=== PATIENT | female | born 1955 | race African-American/Black ===

== ENCOUNTER → 2016-08-27 | Outpatient (CLI) | payer MEDICARE, BC ==
--- NOTE | 2016-08-27 21:20 | MR ---
EXAMINATION TYPE: MR knee RT wo con DATE OF EXAM: 08/27/2016 12:33 PM COMPARISON: Outside radiographs 07/09/2016 HISTORY: 61-year-old female with right knee pain TECHNIQUE: Multiplanar, multisequence imaging of the right knee is performed without IV contrast. FINDINGS: The ACL remains intact but is diffusely thickened and of intermediate signal intensity. The PCL, MCL, and LCL complex appear intact. There is an oblique tear at the junction of the posterior horn and body of the medial meniscus. There is mild diffuse thinning of medial compartment articular cartilage volume. There is diffuse tear of the anterior horn of the lateral meniscus with tear extending to the junctio n with the meniscal body. There is an additional peripheral tear of the posterior horn extending to t he junction with the body and communicating with the attachment site of the meniscofemoral ligament. There is moderate diffuse thinning of lateral compartment articular cartilage with meniscal extrusion , marginal spurring, and more focal moderate to severe irregular areas of cartilage loss especially a long the mid central aspect and posterior weightbearing aspect of the lateral compartment with underl celestino subchondral marrow signal changes. Moderate irregular cartilage loss throughout the patellofemoral compartment with marginal spurring. M ore severe cartilage loss along the mid inferior patella and inferior lateral patellar facet. Extensor mechanism is intact. There is a large knee joint effusion and diffuse soft tissue swelling. There is a small 3.4 cm leaking Gay's cyst also noted. Normal popliteal artery anatomy with mild diffuse muscular atrophy. No suspicious bone marrow replace ment. IMPRESSION: 1. Mucoid degeneration of the ACL. 2. Oblique tear at the junction of the posterior horn and body of the medial meniscus. 3. Moderate overall lateral compartment osteoarthrosis with a peripheral tear of the posterior horn o f the lateral meniscus extending from the attachment site of the meniscofemoral ligament to the junct ion with the body. The lateral meniscal body is extruded secondary to diffuse tear of the anterior ho rn also involving the anterior root. 4. Moderate overall patellofemoral compartment osteoarthrosis. 5. Large knee joint effusion, diffuse soft tissue swelling, and a small leaking Gay's cyst.
== END | disposition home or self-care (01) ==
LOC: RADMRIMAIN 10:56
PROVIDERS: ATTEND Orthopaedic Surgery
DX: S83.241A Other tear of medial meniscus, current injury, right knee, initial encounter (principal); M17.11 Unilateral primary osteoarthritis, right knee; S83.511A Sprain of anterior cruciate ligament of right knee, initial encounter

== ENCOUNTER 2016-09-28 08:10 | Day surgery (SDC) | payer MEDICARE, BC ==
[2016-09-26 10:53] VITALS: BMI 32.5
--- NOTE | 2016-09-27 11:11 | HP ---
DATE OF ADMISSION: CHIEF COMPLAINT: Right knee pain. HISTORY OF PRESENT ILLNESS: The patient is a 61-year-old female on disability who presents with progressive right knee pain and mechanical symptoms despite extensive conservative treatment. She is having pain that limits her normal function and activities. She notes the knee gives way. PAST MEDICAL HISTORY: Significant for lupus, hypertension, hyperlipidemia, previous TIA. CURRENT MEDICATIONS: 1. Procardia. 2. Plaquenil. 3. Aspirin. 4. Plavix. 5. Atorvastatin. 6. Hydrochlorothiazide. 7. Zantac. 8. Metoprolol. 9. Tramadol. 10. [place]. 11. Fentanyl patch. She has allergies to PENICILLIN. Family history is significant for cancer. SOCIAL HISTORY: Negative for current tobacco or alcohol use. A 16-point review of systems otherwise reviewed and is noncontributory. On examination, the patient is approximately 5 feet 4, 197 pounds of endomorphic habitus. HEENT exam is nonfocal. Neck is supple. She has painless passive motion of the right hip. Straight leg raise is negative. Active motion of the right knee -6 to 100 degrees of flexion. She has a large effusion. She is tender about the medial and lateral joint line. Collaterals are stable, Jessie is negative, Jeronimo's elicits medial and lateral pain. Her distal neurovascular exam appears intact in the right lower extremity. Previous MRI report 08/27/2016 of the right knee shows an anterior lateral meniscal tear in addition to a posterior medial meniscal tear. IMPRESSION: 1. Internal derangement of right knee with symptomatic medial and lateral meniscal tears. 2. Right knee lateral compartment osteoarthrosis. 3. History of lupus. RECOMMENDATIONS: I talked to the patient at length regarding her treatment options. At this point, she is quite symptomatic despite conservative treatment. After thorough discussion, she opts to proceed with surgery. We will plan to proceed with arthroscopic evaluation with probable partial medial and lateral meniscectomy. We will likely allow her to resume use of her Plavix after her surgery. We will likely perform that as an outpatient procedure.
[~2016-09-28 08:10] MED LIST: DEXAMETHASONE SOD PHOSPHATE 10 MG/ML 1 ML VIAL IV ONE; LACTATED RINGERS 1,000 ML IV SCH; MIDAZOLAM 2 MG/2 ML VIAL IV PRN; ONDANSETRON 4 MG/2 ML VIAL IVP ONE; SCOPOLAMINE 1.5MG/72HR PATCH TRANSDERM ONE; ceFAZolin 2 GM in SODIUM CHLORIDE 0.9% 100 ML IVPB ONE
[2016-09-28] MEDS ORDERED: LIDOCAINE 1% 20 ML VIAL (10MG/ML) FOR IV START INTRADERMA ONE (08:40)
[2016-09-28] MEDS ORDERED: PROPOFOL 10 MG/ML 20 ML VIAL IV ONE (09:08)
[2016-09-28] MEDS ORDERED: LIDOCAINE 1% INJ 10MG/ML (20 ML MDV) ONE (09:08)
[2016-09-28] MEDS ORDERED: MIDAZOLAM 2 MG/2 ML VIAL ONE (09:08)
[2016-09-28] MEDS ORDERED: fentaNYL (PF) 50 MCG/ML 2 ML AMP ONE (09:08)
[2016-09-28] MEDS ORDERED: SODIUM CHLORIDE 0.9% 100 ML with CLINDAMYCIN 600 MG IV ONE ×2 (09:16)
--- NOTE | 2016-09-28 10:00 | P.OP ---
Date of Procedure: 09/28/16 Preoperative Diagnosis: Right knee internal derangement Postoperative Diagnosis: Right knee posterior medial meniscal tear/posterior lateral meniscal tear/grade 3 chondral injury distal lateral femoral condyle/reactive synovitis of the lateral and patellofemoral compartments Procedure(s) Performed: Right knee arthroscopic partial medial meniscectomy/partial lateral meniscectomy /lateral femoral chondrectomy/partial synovectomy of the lateral and patellofemoral compartments Implants: Anesthesia: GETA Surgeon: Amish Desai Estimated Blood Loss (ml): 10 Pathology: none sent Condition: stable Disposition: PACU Indications for Procedure: The patient's a 61-year-old female who presents with progressive right knee pain and mechanical symptoms despite conservative treatment. A discussion of the risks and benefits of operative intervention versus continued conservative measures was made with patient. She opted to proceed with surgery. Operative risks to include infection, neurovascular injury, development of blood clots, possible incomplete resolution of symptoms, possible worsening symptoms and need for subsequent procedures was discussed. Informed consent was obtained. Operative Findings: As below Description of Procedure: The patient was brought to the operating room, and after induction of general anesthesia examined the right knee. Collaterals were stable, Jessie was negative, and posterior drawer was negative. The right lower extremity was prepped and draped in normal fashion. A superior lateral portal was made through a 3 mm skin incision superior and lateral to the patella. This was used for outflow. A large effusion was encountered. A lateral portal was made through a 5 mm vertical skin incision lateral to the patella tendon above the joint line. Diagnostic arthroscopy was performed. A medial portal was made through a similar incision medial to the patella tendon above the joint line. On inspection of the medial compartment a longitudinal tear involving the posterior aspect of the medial meniscus in the white-junction was noted. This debrided back to stable base with straight baskets. The edges were contoured. The remaining medial meniscus was stable and intact. On inspection of the notch , the anterior cruciate ligament appeared to be intact. On inspection of the lateral compartment, and anterior and posterior lateral meniscal tear was noted. These areas were debrided back to stable base with a motorized shaver and with straight baskets. Reactive synovitis involving anterolateral compartment was debrided with motorized shaver. A grade 3 chondral injury was noted involving the distal medial portion of the lateral femoral condyle. There was a loose chondral flap debrided back to stable base with a motorized shaver. On inspection patellofemoral articulation, there was diffuse degenerative changes however no loose chondral fragments. Reactive synovitis was debrided with a motorized shaver. The gutters were clear debris. The knee was then thoroughly irrigated. The portals were closed with Steri-Strips. A sterile dressing was applied in addition to a compression stocking. The patient was awoken from general anesthesia and transferred to recovery room in good condition. Blood loss was estimated at 10 mL. No complications were incurred.
[2016-09-28 10:02] VITALS: TEMP 96.8
[2016-09-28 10:16] VITALS: RESP 16
[2016-09-28] MEDS: HYDROmorphone 1 MG/ML 1 ML SYRINGE IVP PRN ×3 (10:33→10:51)
[2016-09-28] MEDS ORDERED: HYDROmorphone 1 MG/ML 1 ML SYRINGE IVP ONE (10:38)
[2016-09-28] MEDS ORDERED: HYDROcodone/APAP 10-325MG 1 EACH TAB PO ONE (11:27)
[2016-09-28 11:57] VITALS: BP 122/78; PULSE 76
== END 2016-09-28 12:21 | disposition home or self-care (01) ==
LOC: OR 08:10
PROVIDERS: ATTEND Orthopaedic Surgery
DX: S83.241A Other tear of medial meniscus, current injury, right knee, initial encounter (principal); S83.281A Other tear of lateral meniscus, current injury, right knee, initial encounter; S83.31XA Tear of articular cartilage of right knee, current, initial encounter; X58.XXXA Exposure to other specified factors, initial encounter; M65.861 Other synovitis and tenosynovitis, right lower leg; I10 Essential (primary) hypertension; E78.5 Hyperlipidemia, unspecified; I73.00 Raynaud's syndrome without gangrene; Z87.891 Personal history of nicotine dependence; M32.9 Systemic lupus erythematosus, unspecified; Z86.73 Personal history of transient ischemic attack (TIA), and cerebral infarction without residual deficits; Z79.02 Long term (current) use of antithrombotics/antiplatelets; Z79.82 Long term (current) use of aspirin; Z79.891 Long term (current) use of opiate analgesic; Z79.899 Other long term (current) drug therapy; Z88.0 Allergy status to penicillin
CPT/HCPCS: 29880; J2250; J1100; J2405; J2001; J3010; J1170; J2704

== ENCOUNTER 2017-04-26 12:04 | Day surgery (SDC) | payer MEDICARE, BC ==
[~2017-04-26 12:04] MED LIST changes: -DEXAMETHASONE SOD PHOSPHATE 10 MG/ML 1 ML VIAL IV ONE; +LIDOCAINE 1% 20 ML VIAL (10MG/ML) FOR IV START INTRADERMA PRN; -MIDAZOLAM 2 MG/2 ML VIAL IV PRN; -ONDANSETRON 4 MG/2 ML VIAL IVP ONE; -SCOPOLAMINE 1.5MG/72HR PATCH TRANSDERM ONE; -ceFAZolin 2 GM in SODIUM CHLORIDE 0.9% 100 ML IVPB ONE
[2017-04-26 12:32] VITALS: TEMP 98
[2017-04-26] MEDS ORDERED: PROPOFOL 10 MG/ML 20 ML VIAL IV ONE (12:59)
--- NOTE | 2017-04-26 13:23 | P.PCN ---
Date of Procedure: 04/26/17 Procedure(s) Performed: BRIEF HISTORY: Patient is a 61-year-old pleasant female, scheduled for an elective colonoscopy as a part of screening for colon rectal neoplasia. PROCEDURE PERFORMED: Colonoscopy. PREOPERATIVE DIAGNOSIS: Screening for colon cancer. IV sedation per Anesthesia. PROCEDURE: After informed consent was obtained, the patient, was brought into the endoscopy unit. IV sedation was administered by Anesthesia under continuous monitoring. Digital rectal examination was normal. Initially the Olympus CF- 160 flexible video colonoscope was then inserted in the rectum, gradually advanced into the cecum without any difficulty. Careful examination was performed as the scope was gradually being withdrawn. Ileocecal valve and the appendiceal orifice were visualized and appeared normal. Prep was fair. Mucosa of the cecum, ascending colon, transverse colon, descending colon, sigmoid colon , and rectum appeared normal. Scattered sigmoid diverticulosis seen. Retroflexion was performed in the rectum and no lesions were seen. The patient tolerated the procedure well. IMPRESSION: Normal-appearing colon from rectum to cecum with no evidence of colorectal neoplasia. Scattered sigmoid diverticulosis. RECOMMENDATIONS: Findings of this examination were discussed with the patient as well as a family. She was advised to have a repeat screening colonoscopy in 10 years.
[2017-04-26 14:02] VITALS: BP 100/66; RESP 18
[2017-04-26 14:22] VITALS: PULSE 60
== END 2017-04-26 14:26 | disposition home or self-care (01) ==
LOC: ORWHC2ENDO 12:04
PROVIDERS: ATTEND Internal Medicine Gastroenterology
DX: Z12.11 Encounter for screening for malignant neoplasm of colon (principal); K57.30 Diverticulosis of large intestine without perforation or abscess without bleeding
CPT/HCPCS: J2704; G0121; 45378

== ENCOUNTER → 2020-03-16 | Outpatient (CLI) | payer MEDICARE, BC | END | disposition home or self-care (01) | LOC: LABPAT 12:38 | PROVIDERS: ATTEND Orthopaedic Surgery | DX: Z01.812 Encounter for preprocedural laboratory examination (principal) | CPT/HCPCS: 87070 ==

== ENCOUNTER → 2020-03-16 | Outpatient (CLI) | payer MEDICARE, BC ==
[~2020-03-16] MED LIST changes: -LACTATED RINGERS 1,000 ML IV SCH; -LIDOCAINE 1% 20 ML VIAL (10MG/ML) FOR IV START INTRADERMA PRN; +REGADENOSON 0.4 MG/5 ML SYRINGE IV ONE
--- NOTE | 2020-03-16 12:18 | ECHOF ---
Referral Reason:Z01.818 Surgical clearance R94.31 Abn ECG MEASUREMENTS -------- HEIGHT: 162.6 cm WEIGHT: 77.1 kg BP: RVIDd: 3.3 cm (< 3.3) IVSd: 1.5 cm (0.6 - 1.1) LVIDd: 3.6 cm (3.9 - 5.3) LVPWd: 1.4 cm (0.6 - 1.1) IVSs: 1.9 cm LVIDs: 2.6 cm LVPWs: 1.6 cm LA Diam: 3.6 cm (2.7 - 3.8) LAESV Index (A-L): 23.33 ml/m Ao Diam: 2.9 cm (2.0 - 3.7) AV Cusp: 1.0 cm (1.5 - 2.6) MV EXCURSION: 13.784 mm (> 18.000) MV EF SLOPE: 42 mm/s (70 - 150) EPSS: 0.3 cm MV E Richard: 0.80 m/s MV DecT: 244 ms MV A Richard: 1.04 m/s MV E/A Ratio: 0.78 AV maxP.80 mmHg AV meanP.74 mmHg RAP: 5.00 mmHg RVSP: 25.42 mmHg FINDINGS -------- Sinus rhythm. This was a technically good study. The left ventricular size is normal. There is moderate concentric left ventricular hypertrophy. O verall left ventricular systolic function is normal with, an EF between 60 - 65 %. The right ventricle is mildly enlarged. Normal LA size by volume 22+/-6 ml/m2. The right atrium is normal in size. Interatrial and interventricular septum intact. There is mild to moderate aortic valve sclerosis. There is mild aortic stenosis present. Peak/breann n gradient across the Aortic Valve is 21.80mmHg / 11.74mmHg. There is trace to mild mitral regurgitation. Mild tricuspid regurgitation present. Right ventricular systolic pressure is normal at < 35 mmHg. Trace/mild (physiologic) pulmonic regurgitation. The aortic root size is normal. Normal inferior vena cava with normal inspiratory collapse consistent with estimated right atrial pre ssure of 5 mmHg. There is no pericardial effusion. CONCLUSIONS -------- 1. The left ventricular size is normal. 2. There is moderate concentric left ventricular hypertrophy. 3. Overall left ventricular systolic function is normal with, an EF between 60 - 65 %. 4. The right ventricle is mildly enlarged. 5. There is mild to moderate aortic valve sclerosis. 6. There is mild aortic stenosis present. 7. Peak/mean gradient across the Aortic Valve is 21.80mmHg / 11.74mmHg. 8. There is trace to mild mitral regurgitation. 9. Mild tricuspid regurgitation present. 10. Right ventricular systolic pressure is normal at < 35 mmHg. 11. Trace/mild (physiologic) pulmonic regurgitation. 12. There is no pericardial effusion. HOSPITAL WARD CLERK: MANAS Rothman
--- NOTE | 2020-03-16 14:01 | NM ---
EXAMINATION TYPE: NM stress lexiscan cardiolite DATE OF EXAM: 03/16/2020 COMPARISON: NONE HISTORY: Abnormal ECG, surgical clearance TECHNIQUE: After the intravenous administration of 10.48 mCi Tc 99m Sestamibi - Cardiolite resting S PECT images acquired 45 minutes post injection. The patient received 0.4mg Lexiscan, 25.7 mCi Tc 99m Sestamibi - Stress images obtained [address] injection FINDINGS: Review of stress and rest SPECT images demonstrates no distinct perfusion abnormality. Gated analysi s shows normal wall motion with an estimated left ventricular ejection fraction of 63%. IMPRESSION: No scintigraphic evidence for reversible ischemia.
--- NOTE | 2020-03-16 14:17 | EST ---
EXERCISE STRESS AGE: 64 SEX: F HT: 5'4" WT: 170 PROTOCOL: Lexiscan Cardiolite Stress Test HEART RATE REST: 68 BLOOD PRESSURE REST: 139/63 MAXIMUM HEART RATE ACHIEVED: 92 MAXIMUM BLOOD PRESSURE: 139/63 85% MPHR: 134 100% MPHR: 158 INDICATIONS: Abnormal EKG, surgical clearance. CLINICAL INFORMATION: Baseline EKG revealed normal sinus rhythm with inferolateral nonspecific ST abnormality. With Lexiscan administration, heart rate changed from 68-85 beats per minute, blood pressure changed from 139/63 to 124/57, and came back to baseline. EKG remained inconclusive. Patient did not have any significant symptoms. By EKG criteria, this is an inconclusive Lexiscan stress test because of resting EKG changes. The nuclear scan results which are more pertinent will be reported by the radiologist. MMODL / IJN: [id number] /
== END | disposition home or self-care (01) ==
LOC: RADNMMAIN 08:57
PROVIDERS: ATTEND Family Medicine
DX: I08.1 Rheumatic disorders of both mitral and tricuspid valves (principal); I09.89 Other specified rheumatic heart diseases; I10 Essential (primary) hypertension; Z01.818 Encounter for other preprocedural examination; R94.31 Abnormal electrocardiogram [ECG] [EKG]; R01.1 Cardiac murmur, unspecified
CPT/HCPCS: 93017; 93306; 78452; A9500; J2785

== ENCOUNTER 2020-03-22 13:11 | Day surgery (SDC) | payer MEDICARE, BC ==
[2020-03-18 15:34] VITALS: BMI 29.2
--- NOTE | 2020-03-21 10:45 | HP ---
HISTORY AND PHYSICAL CHIEF COMPLAINT: Right knee pain. HISTORY OF PRESENT ILLNESS: Patient is a 64-year-old retired female who presents with progressive right knee pain for the past several years. She has tried medications in addition to injections with only partial temporary relief. She notes pain that limits her normal function and activities. She is having night symptoms. She had a previous arthroscopy in 2017. PAST MEDICAL HISTORY: Significant for arthritis and hypertension. PAST SURGICAL HISTORY: Significant for bilateral knee arthroscopy. CURRENT MEDICATIONS: Aspirin, fentanyl patch, hydrochlorothiazide, spironolactone, Tim[place], atorvastatin, [place], ibuprofen, Procardia, and Tramadol. ALLERGIES: PENICILLIN. FAMILY HISTORY: Significant for cancer. SOCIAL HISTORY: Negative for current tobacco or alcohol use. PHYSICAL EXAMINATION: On examination, the patient is approximately 5 foot 4, 170 pounds, of mesomorphic habitus. HEENT: Exam is nonfocal. NECK: Supple. She has painless passive motion of the right hip. Straight leg raise is negative. Active motion right knee -12 to 85 degrees of flexion. She is tender about the lateral joint line. She has mild effusion. Collaterals are stable, Jessie is negative, Jeronimo's is equivocal. She has genu valgum alignment. Her distal neurovascular appears intact in the right lower extremity. Weightbearing notch, lateral and Merchant views of the right knee obtained in the office show severe lateral and patellofemoral compartment narrowing. There is bone-on- bone changes and subchondral sclerosis. IMPRESSION: Right knee severe lateral and patellofemoral compartment osteoarthrosis. RECOMMENDATIONS: I talked to the patient at length regarding her condition along with treatment options. She has exhausted conservative measures with worsening of her symptoms. After a thorough discussion, she opts to proceed with surgery. We will plan to proceed with a right total knee arthroplasty. We will institute DVT prophylaxis postoperatively. MMODL / IJN: [id number] /
[~2020-03-22 13:11] MED LIST changes: +ACETAMINOPHEN TAB 500 MG TAB PO ONE; +DEXAMETHASONE SOD PHOSPHATE 4 MG/ML 1 ML VIAL IV ONE; +HYDROmorphone 0.5 MG/0.5 ML SYRINGE IVP PRN; +LIDOCAINE 1% (10MG/ML) FOR IV START INTRADERMA PRN; +ONDANSETRON 4 MG/2 ML VIAL IVP ONE; -REGADENOSON 0.4 MG/5 ML SYRINGE IV ONE; +TRANEXAMIC ACID 1,000 MG in SODIUM CHLORIDE 0.9% 100 ML IVPB ONE
[2020-03-22] MEDS: LACTATED RINGERS 1,000 ML IV SCH (13:49)
[2020-03-22] MEDS: MELOXICAM 7.5 MG TAB PO ONE ×2 (13:50→13:53)
[2020-03-22] MEDS ORDERED: fentaNYL (PF) 50 MCG/ML 2 ML AMP IV ONE (13:52)
[2020-03-22] MEDS ORDERED: MIDAZOLAM 2 MG/2 ML VIAL IV ONE (13:52)
[2020-03-22] MEDS ORDERED: ROPIVACAINE 0.2%-NS ON-Q PUMP 1,090 MG, EMPTY PAIN BALL 1 EACH MISCELLANE PRN (14:11)
--- NOTE | 2020-03-22 14:11 | P.ANPRN ---
Procedure Note - Anesthesia - Nerve Block Performed Right Adductor Canal Infusion Time Out Performed: Yes ([id number]) Date of Procedure: 03/22/20 Procedure Start Time: 13:52 Procedure Stop Time: 14:02 Location of Patient: PreOp Indication: Acute Post-Operative Pain, Analgesia, Requested by Surgeon Specifically requested for management of pain by : Amish Desai Sedation Type: Sedate with meaningful contact maintained Preparation: Sterile Prep, Sterile Dressing Position: Supine Catheter: Indwelling Needle Types: Kandy Needle Gauge: 18 Ultrasound used to visualize needle placement: Yes Ultrasound used to observe medication spread: Yes Injectate: 0.5% Ropivacaine (see comment for volume) (20 mL) Blood Aspirated: No Pain Paresthesia on Injection Noted: No Resistance on Injection: Normal Image Stored and Saved: Yes Events: Uneventful and Well Tolerated
[2020-03-22] MEDS ORDERED: PROPOFOL 10 MG/ML 20 ML VIAL IV ONE (14:40)
[2020-03-22] MEDS ORDERED: fentaNYL (PF) 50 MCG/ML 2 ML AMP ONE (14:40)
[2020-03-22] MEDS ORDERED: MIDAZOLAM 2 MG/2 ML VIAL ONE (14:40)
[2020-03-22] MEDS ORDERED: GLYCOPYRROLATE 0.2 MG/ML 2 ML VIAL ONE (14:40)
[2020-03-22] MEDS ORDERED: TRANEXAMIC ACID 1,000 MG/10 ML VIAL ONE (14:40)
[2020-03-22] MEDS ORDERED: SODIUM CHLORIDE 0.9% 100 ML BAG ONE (14:40)
[2020-03-22] MEDS: ROPIVACAINE 246.25 MG, EPINEPHrine 0.5 MG, KETOROLAC 30 MG, cloNIDine HCL/PF 80 MCG, WA... MISCELLANE ONE ×10 (15:15→16:13)
[2020-03-22] MEDS ORDERED: ceFAZolin 3,000 MG in SODIUM CHLORIDE 0.9% IRRIGATIO 3,000 ML IRRIGATION ONE (15:16)
[2020-03-22] MEDS ORDERED: HYDROcodone/APAP 10-325MG 1 EACH TAB PO PRN (16:25)
[2020-03-22] MEDS ORDERED: ONDANSETRON 4 MG/2 ML VIAL IVP PRN (16:25)
[2020-03-22] MEDS ORDERED: traMADol 50 MG TAB PO PRN (16:25)
[2020-03-22] MEDS ORDERED: HYDROmorphone 0.5 MG/0.5 ML SYRINGE IVP PRN (16:25)
[2020-03-22] MEDS ORDERED: MAGNESIUM HYDROXIDE 2,400 MG/10 ML CUP PO PRN (16:25)
[2020-03-22] MEDS ORDERED: NALOXONE 0.4 MG/ML 1 ML VIAL IV PRN (16:25)
[2020-03-22] MEDS ORDERED: ACETAMINOPHEN TAB 325 MG TAB PO PRN (16:25)
--- NOTE | 2020-03-22 17:00 | P.OP ---
Date of Procedure: 03/22/20 Preoperative Diagnosis: right knee severe tricompartmental osteoarthrosis Postoperative Diagnosis: Same Procedure(s) Performed: Right total knee arthroplastycruciate retainingcemented Implants: Depuy Attune size 6 narrow cemented femoral component, size 5 cemented tibial component, 9 mm articular surface, 32 mm cemented patellar component. This is a cruciate retaining implant. Anesthesia: regional, local, spinal Surgeon: Amish Desai Principal Secretary #1: Dave Patton Estimated Blood Loss (ml): 50 Pathology: other (Bone fragments) Condition: stable Disposition: PACU Indications for Procedure: The patient's a 64-year-old female who presents with progressive right knee pain secondary to osteoporosis despite conservative measures. A discussion of the risks and benefits of operative intervention versus continued conservative measures was made with patient. She opted to proceed with surgery. Operative risks to include infection, neurovascular injury, development of blood clots, possible fracture, possible component loosening, possible component failure need for subsequent procedures was discussed. Informed consent was obtained. Operative Findings: As below Description of Procedure: The patient was brought to the operating room, and after induction of spinal anesthesia the right lower extremity was prepped and draped in a normal fashion. The tourniquet was inflated to 270 mmHg. A longitudinal incision extending 3 finger breaths above the superior pole of the patella extending to the medial aspect the tibial tubercle was then made. The skin and subcutaneous tissues were divided sharply. Electrocautery was used for hemostasis. A medial parapatellar arthrotomy was then performed. The medial soft tissues to include the superficial and deep portions of the medial collateral ligament as well as the medial hamstring tendons were elevated subperiosteally. The proximal medial tibia osteophytes were carefully removed. The patella was everted. The knee was flexed. A portion of the retropatellar fat pad was excised sharply. The anterior cruciate ligament was sacrificed. A starting hole was made in the distal femur 1 cm anterior to the posterior cruciate origin. An intramedullary femoral guide was gently inserted planning on 5 valgus distal cut with 9 mm distal resection. The cutting block was pinned in place. The distal cut was then made. The posterior referencing sizing guide was utilized. 3 of external rotation was built into the system and verified off the trans- epicondylar axis and the posterior condyles. I felt size 6 was most appropriate. The cutting block was pinned in place. The anterior, posterior, and chamfer cuts were then made. The bone fragments were removed. A sulcus cut was then made with the appropriate guide. The trial size 6 femoral component was then placed and was fully seated. There was good anterior to posterior and medial to lateral fit. The distal peg holes were then drilled. The trial component was then removed. Attention was then paid towards preparing the proximal tibia. An extra medullary guide was utilized in line with the tibial shaft and second metatarsal distally. A 7 posterior slope was planned. I planned on 2 mm resection from the medial compartment. The cutting block was pinned in place. The proximal tibial cut was then made. The bone was removed in one fragment. The remnants of the medial and lateral menisci were excised the capsule junction with electrocautery. The tibia sized most appropriately at size 5. The posterior osteophytes off the distal femur were carefully removed with a curved osteotome. The trial tibial and femoral components were placed along with a 9 millimeters articular surface. I was able to obtain full flexion and extension with good stability with varus and valgus stress. After several flexion and extension cycles, the tibial rotation was marked with electrocautery in line with the medial one third of the tibial tubercle. Attention was then paid towards preparing the patella. A patella reamer was utilized taking this down to 14 mm of bone stock. A good flush cut was made. The patella sized most appropriately at 32 millimeters. The peg holes were then drilled. The trial component was placed. The knee was taken through a range of motion. I had good patellofemoral tracking with no hands technique. The trial components were then removed. The tibia was prepared in the appropriate rotation with appropriate drill and keel punch. The flexion and extension gaps were checked and felt to be symmetric. The posterior soft tissues were injected with ropivacaine. The bony surfaces were prepared with pulsatile lavage and dried. The deep tibial component was then cemented in place and was fully seated. Excess cement was removed. The femoral component was cemented in place and was fully seated. Again excess cement was removed. The trial 9 millimeters surface was then inserted in the knee was put in full extension. The patella component was cemented in place. After the cement had sufficiently hardened, the knee was again taken through a range of motion. Again there was good stability in flexion and extension with varus and valgus stress. The trial articular surface was then removed. The final articular surface was placed and was impacted. Care was taken to avoid any soft tissue interposition. Pulsatile lavage was again utilized. The tourniquet was deflated with approximately 60 minutes total tourniquet time. There was minimal drainage therefore a deep drain was not placed. The medial parapatellar arthrotomy was then closed with #2 Ethibond suture. The subcutaneous tissues were reapproximated interrupted 2-0 Vicryl sutures. The skin was reapproximated with 3-0 subarticular strata fix suture. Skin tape and adhesive was applied. A sterile dressing was applied. The patient was then awoken from sedation and transferred to recovery room in good condition. Blood loss was estimated at 50 milliliters. No complications were incurred. Sponge and needle counts were correct at the end the case. Dirk MENDEZ assisted during the major components this case to include exposure, bone resection, and implantation.
--- NOTE | 2020-03-22 17:23 | XR ---
EXAMINATION TYPE: XR knee limited RT DATE OF EXAM: 03/22/2020 COMPARISON: NONE HISTORY: Postop knee surgery TECHNIQUE: 2 views FINDINGS: There is a right knee prosthesis. Components are in anatomic position. IMPRESSION: No complicating process.
[2020-03-22] MEDS: HYDROmorphone 1 MG/ML 1 ML SYRINGE IVP PRN (18:38)
[2020-03-22] MEDS: HYDROcodone/APAP 10-325MG 1 EACH TAB PO PRN (19:21)
[2020-03-22] MEDS ORDERED: ERGOCALCIFEROL 50,000 UNIT CAP PO SCH (20:00)
[2020-03-22] MEDS: FAMOTIDINE 20 MG TAB PO SCH (21:09)
[2020-03-22] MEDS: ATORVASTATIN 40 MG TAB PO SCH (21:09)
[2020-03-22] MEDS: DORZOLAMIDE-TIMOLOL 2.23%/0.68 10ML BTL BOTH EYES SCH (21:10)
[2020-03-22] MEDS: SENNOSIDES-DOCUSATE SODIUM 1 EACH TAB PO SCH (22:02)
--- NOTE | 2020-03-23 06:18 | P.PN ---
Progress Note - Text Progress Note Date: 03/23/20 Patient was seen at bedside at 545 AM. Patient is postop day 1 from right total knee replacement with adductor canal catheter placed for pain . Ropivacaine 0.2% infusion running at 8 ml per hour. VAS score is 2. Patient denies side effects. Lower extremity sensation and motor function is intact. Patient has ambulated. Dressing clean dry and intact over catheter site
[2020-03-23] MEDS: LACTATED RINGERS 1,000 ML IV SCH (06:19)
--- NOTE | 2020-03-23 06:50 | CONS ---
CONSULTATION DATE OF SERVICE: 03/22/2020 REASON FOR CONSULTATION: Advice regarding history of hypertension, hyperlipidemia and other medical issues requested by Dr. Desai. HISTORY OF PRESENT ILLNESS: This 64-year-old woman with a past medical history of hypertension, hyperlipidemia, history of DJD being followed by Dr. Carranza in the outpatient setting was admitted after right total knee arthroplasty. The patient tolerated the procedure. The patient was complaining of some pain and after Dilaudid, the blood pressure is slightly low with systolic 96. The patient apparently had extensive workup recently including a Lexiscan stress test preoperatively which showed no scintigraphic evidence of ischemia. A 2D echo with Doppler was also done on the same day about a week ago, which showed ejection fraction 60% to 65% and mild aortic stenosis present with peak gradient 21 and 11.7. There is no history of any fever, rigors or chills at this time. PAST MEDICAL HISTORY: History of hypertension, hyperlipidemia, CVA, TIA, DJD. MEDICATIONS: Medications are Ultram, HydroDIURIL, Duragesic patch, multivitamins, Motrin, iron sulfate vitamin D2, Cosopt, Plavix, Lipitor, aspirin, vitamin C, Procardia, Lopressor, [place], Pepcid. ALLERGIES: PENICILLIN. FAMILY HISTORY: History of rectal cancer in the family. SOCIAL HISTORY: History of smoking. No history of alcohol intake. REVIEW OF SYSTEMS: ENT: No diminished hearing or diminished vision. CARDIOVASCULAR SYSTEM: As mentioned earlier. RESPIRATORY SYSTEM: As mentioned earlier. GI: No nausea. : No dysuria. NERVOUS SYSTEM: No numbness or weakness. ALLERGY/IMMUNOLOGY: No asthma or hayfever. MUSCULOSKELETAL: As mentioned earlier. HEMATOLOGY/ONCOLOGY: No history of anemia. ENDOCRINE: No history of diabetes or hypothyroidism. CONSTITUTIONAL: As mentioned earlier. DERMATOLOGY: Negative. RHEUMATOLOGY: Negative. PSYCHIATRY: As mentioned earlier. PHYSICAL EXAMINATION: The patient is alert and oriented x3. Pulse 63, blood pressure 118/62, respiration 18, temperature normal, pulse ox 100% on room air. HEENT: Conjunctivae normal. NECK: No jugular venous distention. CARDIOVASCULAR: S1, S2 muffled. Ejection systolic murmur present, 2/6 left sternal border. No S3, no S4. RESPIRATORY: Breath sounds diminished at the bases. No rhonchi, no crackles. ABDOMEN: Soft, nontender. No mass palpable. LEGS: Status post knee arthroplasty. NERVOUS SYSTEM: Higher functions as mentioned earlier. No focal deficits. LYMPHATICS: No lymphadenopathy of the neck, axillae or groin. SKIN: No ulcer, rash or bleeding. JOINTS: As mentioned earlier. LABS: Labs are at this time, the preop labs CBC within normal limits. Coags are within normal limits. Chemistry also within normal limits. ASSESSMENT: 1. Status post right total knee arthroplasty. 2. Mild relative hypotension possibly secondary to pain medication as expected. 3. Hypertension history. 4. Hyperlipidemia. 5. History of cerebrovascular accident. 6. History of degenerative joint disease. 7. History of mild aortic stenosis. 8. History of hysterectomy. 9. History of degenerative joint disease. 10.Remote history of nicotine dependence. 11.History of bladder surgery. RECOMMENDATIONS AND DISCUSSION: This 64-year-old woman presented with multiple medical issues, at this time I recommend to continue the current medications, continue symptomatic treatment. Hold hypertension medications, diuretics. Otherwise continue with IV fluids, DVT prophylaxis, incentive spirometry. Will follow the patient closely. The patient may be asked to follow with Dr. Carranza closely after discharge. Will repeat the labs tomorrow. Thank you Dr. Desai for letting us participate in the care of this patient. MMODL / IJN: [id number] / TIMA
[2020-03-23 07:37] LABS: Basophils % (A) 0 %; Eosinophils % (A) 0 %; HCT 39.4 % (34.0-46.0); HGB 12.7 gm/dL (11.4-16.0); Lymphocytes # (A) 2.6 k/uL (1.0-4.8); Lymphocytes % (A) 19 %; MCH 29.7 pg (25.0-35.0); MCHC 32.2 g/dL (31.0-37.0); Mean Platelet Volume 8.6; Monocytes # (A) 0.8 k/uL (0-1.0); Monocytes % (A) 6 %; Neutrophils # (A) 10.2 k/uL (1.3-7.7); Platelet Count 319 k/uL (150-450); RBC 4.26 m/uL (3.80-5.40); WBC 13.8 k/uL (3.8-10.6)
[2020-03-23 07:50] LABS: MCV 92.4 fL (80.0-100.0)
[2020-03-23] MEDS: ASPIRIN 81 MG PO SCH (08:46)
[2020-03-23] MEDS: DORZOLAMIDE-TIMOLOL 2.23%/0.68 10ML BTL BOTH EYES SCH ×2 (08:46→21:42)
[2020-03-23] MEDS: HYDROcodone/APAP 10-325MG 1 EACH TAB PO PRN ×3 (08:46→20:12)
[2020-03-23] MEDS: FAMOTIDINE 20 MG TAB PO SCH ×2 (08:46→20:12)
[2020-03-23] MEDS: FERROUS SULFATE 325 MG TAB PO SCH (08:47)
[2020-03-23] MEDS: MULTIVITAMINS, THERA 1 EACH TAB PO SCH (08:47)
[2020-03-23 09:33] LABS: African American GFR (CKD) 79.4 (60.0-200.0); Anion Gap 7.7 mmol/L (4.00-12.00); BUN/Creat Ratio 15.56 Ratio (12.00-20.00); Calcium 9.4 mg/dL (8.7-10.3); Carbon Dioxide 26.3 mmol/L (21.6-31.8); Non-African American GFR(CKD) 68.5 (60.0-200.0); Potassium 3.8 mmol/L (3.5-5.5)
--- NOTE | 2020-03-23 10:27 | P.PN ---
Subjective Progress Note Date: 03/23/20 Principal diagnosis: Status post right total knee arthroplasty Patient is examined today at bedside, she is resting comfortably. She is having issues with pain controlled this time. She ambulated minimally with physical therapy. She denies any headaches, lightheadedness, chest pain or shortness of breath. She denies any fevers or chills. Objective - Vital Signs Vital signs: Vital Signs Temp 98.1 F 03/23/20 07:34 Pulse 74 03/23/20 08:05 Resp 17 03/23/20 08:05 BP 122/79 03/23/20 07:34 Pulse Ox 98 03/23/20 07:34 Intake & Output 03/22/20 03/23/20 03/23/20 18:59 06:59 18:59 Intake Total 651 950 Output Total 50 Balance 601 950 Weight 75.8 kg 75.8 kg Intake: IV 651 Intake, IV Titration 950 Amount Lactated Ringers 1,000 ml 850 @ 50 mls/hr IV .Q20H REYES Rx#:[id number] ceFAZolin 2 gm In Sodium 100 Chloride 0.9% 50 ml @ 100 mls/hr IVPB Q8HR REYES Rx# :[id number] Output: Estimated Blood Loss 50 Other: Voiding Method Bedside Commode # Voids 1 - Exam Right lower extremity: Incision is clean, dry, and intact. The exofin fusion tape is in good condition. There is minimal soft tissue swelling and ecchymosis surrounding the medial and lateral aspects of the incision. Calf is soft, no tenderness with palpation. Plantar flexion, dorsiflexion, EHL, FHL are intact. Sensory exam to light touch throughout the extremity is intact, dorsal pedis pulses 2+. - Labs CBC & Chem 7: 03/23/20 06:30 03/23/20 06:30 Labs: Abnormal Lab Results - Last 24 Hours (Table) 03/23/20 Range/Units 06:30 WBC 13.8 H (3.8-10.6) k/uL Neutrophils # 10.2 H (1.3-7.7) k/uL Assessment and Plan Assessment: Status post right total knee arthroplasty Plan: Pain control, discussed the patient had pain control be slightly difficult due to her taking narcotics for an extended period of time. We'll continue to utilize her normal medications along with IV medication for breakthrough DVT prophylaxis, continue current medication Wound care instructions were discussed Encourage incentive spirometer Continue work with physical therapy Medical recommendations Discharge planning: Plan for discharge home today Time with Patient: Less than 30
--- NOTE | 2020-03-23 16:26 | PN ---
PROGRESS NOTE DATE OF SERVICE: 03/23/2020 This 64-year-old woman who was admitted after right total knee arthroplasty had some mild hypotension yesterday. The patient is improving significantly. No chest pain. No palpitations. No fever. PHYSICAL EXAMINATION: Alert and oriented x3. Pulse is 68, blood pressure 147/79, respiration 18, temperature 98.7, pulse ox 100% on room air. HEENT: Conjunctivae normal. NECK: No jugular venous distention. CARDIOVASCULAR SYSTEM: S1, S2 muffled. Ejection systolic murmur present. RESPIRATORY SYSTEM: Breath sounds diminished at the bases. No rhonchi. No crackles. ABDOMEN: Soft, non-tender. LEGS: Status post surgery. LABS: WBC 13.8, hemoglobin 12.7. ASSESSMENT: 1. Status post right total knee arthroplasty. 2. Mild relative hypotension, possibly secondary to pain medication as expected, improved. 3. Hypertension. 4. Hyperlipidemia. 5. History of cerebrovascular accident. 6. History of degenerative joint disease. 7. History of mild aortic stenosis. 8. History of hysterectomy. 9. Remote history of nicotine dependence. 10.History of bladder surgery. RECOMMENDATIONS AND DISCUSSION: In this 64-year-old woman who presented with multiple complex medical issues, we will monitor the patient closely, continue the current medications, continue symptomatic treatment. Otherwise at this time I recommend resuming the home medications and follow closely with Dr. Carranza in the outpatient setting. Rest of the recommendations per Orthopedic Surgery. Further recommendations to follow. DVT prophylaxis. MMODL / IJN: [id number] /
[2020-03-23 20:09] LABS: Appearance,Urine Clear (Clear); Bilirubin,Urine Negative (Negative); Blood,Urine Negative (Negative); Color,Urine Light Yellow; Glucose,Urine (UA) Negative (Negative); Ketones,Urine Negative (Negative); Leukocyte Esterase,Urine Negative (Negative); Nitrite,Urine Negative (Negative); PH, Urine 7.5 (5.0-8.0); Protein,Urine Negative (Negative); Specific Gravity,Urine 1.009 (1.001-1.035); Urobilinogen,Urine <2.0 mg/dL (<2.0)
[2020-03-23] MEDS: SENNOSIDES-DOCUSATE SODIUM 1 EACH TAB PO SCH (20:12)
[2020-03-23] MEDS: ATORVASTATIN 40 MG TAB PO SCH (20:12)
[2020-03-24] MEDS: HYDROmorphone 1 MG/ML 1 ML SYRINGE IVP PRN (00:15)
[2020-03-24] MEDS: HYDROcodone/APAP 10-325MG 1 EACH TAB PO PRN ×3 (04:17→15:35)
[2020-03-24] MEDS: LACTATED RINGERS 1,000 ML IV SCH (04:17)
[2020-03-24 08:29] VITALS: PULSE 69
[2020-03-24] MEDS: MULTIVITAMINS, THERA 1 EACH TAB PO SCH (09:42)
[2020-03-24] MEDS: ASPIRIN 81 MG PO SCH (09:42)
[2020-03-24] MEDS: FAMOTIDINE 20 MG TAB PO SCH (09:42)
[2020-03-24] MEDS: FERROUS SULFATE 325 MG TAB PO SCH (09:42)
[2020-03-24] MEDS: DORZOLAMIDE-TIMOLOL 2.23%/0.68 10ML BTL BOTH EYES SCH (09:42)
--- NOTE | 2020-03-24 11:05 | P.PN ---
Subjective Progress Note Date: 03/24/20 Principal diagnosis: Status post right total knee arthroplasty Patient is examined today at bedside, she is resting comfortably. Patient's pain is better controlled today. She's ambulated better with therapy, she has utilize stairs. She denies any headaches, lightheadedness, chest pain or shortness of breath. She denies any fevers or chills. Objective - Vital Signs Vital signs: Vital Signs Temp 98.7 F 03/24/20 08:00 Pulse 69 03/24/20 08:00 Resp 16 03/24/20 08:00 BP 173/84 03/24/20 08:00 Pulse Ox 98 03/24/20 08:00 Intake & Output 03/23/20 03/24/20 03/24/20 18:59 06:59 18:59 Intake Total 750 1100 180 Balance 750 1100 180 Intake: Intake, IV Titration 350 Amount Lactated Ringers 1,000 ml 300 @ 50 mls/hr IV .Q20H REYES Rx#:[id number] ceFAZolin 2 gm In Sodium 50 Chloride 0.9% 50 ml @ 100 mls/hr IVPB Q8HR REYES Rx# :[id number] Oral 400 1100 180 Other: Voiding Method Bedside Commode Bedside Commode Bedside Commode # Voids 2 2 - Exam Right lower extremity: Incision is clean, dry, and intact. The exofin fusion tape is in good condition. There is minimal soft tissue swelling and ecchymosis surrounding the medial and lateral aspects of the incision. Calf is soft, no tenderness with palpation. Plantar flexion, dorsiflexion, EHL, FHL are intact. Sensory exam to light touch throughout the extremity is intact, dorsal pedis pulses 2+. - Labs CBC & Chem 7: 03/23/20 06:30 03/23/20 06:30 Labs: Microbiology - Last 24 Hours (Table) 03/23/20 19:30 Urine Culture - Preliminary Urine,Clean Catch Assessment and Plan Assessment: Status post right total knee arthroplasty Plan: Pain control, she will resume her regular pain regimen at discharge DVT prophylaxis, Eliquis 2.5 mg twice a day for 2 weeks Wound care instructions were discussed Encourage incentive spirometer Continue work with physical therapy Medical recommendations Discharge planning: Plan for discharge home today Time with Patient: Less than 30
--- NOTE | 2020-03-24 11:06 | P.DS ---
Providers Date of admission: 03/22/2020 Expected date of discharge: 03/24/20 Attending physician: Amish Desai Consults: 03/22/20 16:25 Consult Physician Routine Consulting Provider: Dalton Carranza III Consult Reason/Comments: medical management Do you want consulting provider notified?: Yes Primary care physician: Dalton Carranza Hospital Course: Date of admission: 03/22/2020 Date of discharge: 03/24/2020 Admission diagnosis: Status post right total knee arthroplasty Discharge diagnosis: Same Attending physician: Dr. Desai Surgical procedures: Right total knee arthroplasty Brief history: Patient is a 64-year-old female with a history of progressive primary right knee osteoarthritis. At this point patient has failed conservative treatment measures and has opted to proceed with a elective right total knee arthroplasty. Hospital course: Details of patient's surgery can be found in operative report. Patient tolerated the procedure well and was subsequently transported to orthopedic floor. Patient's orthopeidc and medical care was provided daily. Patient had daily laboratory tests performed for evaluation of overall blood counts. Patient had daily physical therapy to include strengthening range of motion as well as education with walker ambulation. Patient was treated with Plavix for their postoperative DVT prophylaxis during their inpatient stay. Alejandro mercado was noted to have a relatively uneventful postoperative course. Patient reported satisfactory pain control with oral pain medications by postoperative day 2. Patient showed satisfactory progress with physical therapy. Patient moved steadily through the program and had no difficulty meeting the goals by postoperative day 2. Given patient's otherwise satisfactory course and having met physical therapy goals, plan is to discharge patient home on postoperative day 2. Discharge condition/disposition: Patient will be discharged home in stable condition. Discharge medications: Instructions are given on resumption of patient's normal daily medications per primary care recommendation, in addition patient will be prescribed Eliquis 2.5 mg. Discharge instructions: 1. Wound care and infection precautions, keep incision dry and covered while showering, no lotions, creams, moisturizers. No soaking, tubs, pools, hottubs. Do not scrub over the incision. 2. Weight-bear as tolerated with walker / cane until follow-up. 3. Ice and elevate when necessary. Do not exceed 20 minutes per hour with ice pack. 4. Utilize compression sleeve until seen at first follow up appointment. 5. Visiting nursing care. 6. Home physical therapy including home CPM. 7. Pain meds and anticoagulants per prescription. 8. Pain medication has potential to cause constipation. Increase oral fluid and fiber intake. Contact primary care provider if you have not had a bowel movement within 48 hours after discharge 9. No anti-inflammatory medication until discussed at first post operative visit, this including Motrin, Aleve, Mobic, Diclofenac. 10. Follow up in office at 2 weeks postop with Dirk Patton PA-C 11. Follow up with your primary care doctor 7-10 days after discharge. 12. Contact [facility] with any questions, . Procedures: Right total knee arthroplasty Patient Condition at Discharge: Good Plan - Discharge Summary Discharge Rx Participant: Yes New Discharge Prescriptions: New Apixaban [Eliquis] 2.5 mg PO BID #60 tab No Action traMADol HCl [Ultram] 50 mg PO BID PRN PRN Reason: Pain fentaNYL 100MCG/HR PATCH [Duragesic 100MCG/HR] 100 mcg TRANSDERM Q48H Ibuprofen [Motrin] 800 mg PO BID hydroCHLOROthiazide [Hydrodiuril] 25 mg PO QAM Clopidogrel [Plavix] 75 mg PO DAILY Aspirin 81 mg PO DAILY NIFEdipine [Procardia] 60 mg PO QAM HYDROcodone/APAP 10-325MG [[place] 10-325] 1 tab PO Q8H PRN PRN Reason: Pain Ascorbic Acid [Vitamin C] 500 unit PO DAILY Atorvastatin [Lipitor] 40 mg PO HS Famotidine [Pepcid] 20 mg PO Q12HR Metoprolol Tartrate [Lopressor] 12.5 mg PO BID Ferrous Sulfate [Feosol] 325 mg PO DAILY Ergocalciferol [Vitamin D2] 50,000 unit PO QMONTHLY Multivitamins, Thera [Multivitamin (formulary)] 1 tab PO DAILY Dorzolamide/Timolol/Pf [Cosopt Pf 2%/5% Ophth Droperette] 1 applicator BOTH EYES BID Discharge Medication List Aspirin 81 mg PO DAILY 10/10/14 [History] Clopidogrel [Plavix] 75 mg PO DAILY 10/10/14 [History] Ibuprofen [Motrin] 800 mg PO BID 10/10/14 [History] fentaNYL 100MCG/HR PATCH [Duragesic 100MCG/HR] 100 mcg TRANSDERM Q48H 10/10/14 [History] hydroCHLOROthiazide [Hydrodiuril] 25 mg PO QAM 10/10/14 [History] traMADol HCl [Ultram] 50 mg PO BID PRN 10/10/14 [History] Ascorbic Acid [Vitamin C] 500 unit PO DAILY 09/26/16 [History] HYDROcodone/APAP 10-325MG [[place] 10-325] 1 tab PO Q8H PRN 09/26/16 [History] NIFEdipine [Procardia] 60 mg PO QAM 09/26/16 [History] Atorvastatin [Lipitor] 40 mg PO HS 03/18/20 [History] Dorzolamide/Timolol/Pf [Cosopt Pf 2%/5% Ophth Droperette] 1 applicator BOTH EYES BID 03/18/20 [History] Ergocalciferol [Vitamin D2] 50,000 unit PO QMONTHLY 03/18/20 [History] Famotidine [Pepcid] 20 mg PO Q12HR 03/18/20 [History] Ferrous Sulfate [Feosol] 325 mg PO DAILY 03/18/20 [History] Metoprolol Tartrate [Lopressor] 12.5 mg PO BID 03/18/20 [History] Multivitamins, Thera [Multivitamin (formulary)] 1 tab PO DAILY 03/18/20 [History] Apixaban [Eliquis] 2.5 mg PO BID #60 tab 03/24/20 [Rx] Follow up Appointment(s)/Referral(s): Dalton Carranza III, MD [Primary Care Provider] - 03/28/20 1:00 pm [facility],Equipment [NON-STAFF] - (*Please call [facility] once home to arrange delivery of Continuous Passive Motion (CPM) machine. ) [facility], [NON-STAFF] - ([facility] care will call you to arrange your first visit for about 24 hours after discharge from the hospital. ) Dave Patton PAC [PHYSICIAN COINING PRESS OPERATOR] - 04/08/20 2:00 pm Activity/Diet/Wound Care/Special Instructions: Orthopedic Discharge Instructions: 1. Wound care and infection precautions, keep incision dry and covered while showering, no lotions, creams, moisturizers. No soaking, pools, hot tubs. Do not scrub over incision. 2. Weight-bear as tolerated with walker / cane until follow-up. 3. Ice and elevate when necessary. Do not exceed 20 minutes per hour with ice pack. 4. Utilize compression sleeve until seen at first follow up appointment. 5. Pain meds and anticoagulants per prescription. 6. Pain medication has potential to cause constipation. Increase oral fluid and fiber intake. Contact primary care provider if you have not had a bowel movement within 48 hours after discharge. 7. No anti-inflammatory medication until discussed at first post operative visit, this including Motrin, Aleve, Mobic, Diclofenac. 8. Follow up in office at 2 weeks postop with Dirk Patton PA-C 9. Follow up with your primary care doctor 7-10 days after discharge. 10. Contact [facility] with any questions, . Discharge Disposition: HOME WITH HOME HEALTH SERVICES
[2020-03-24 13:42] VITALS: BP 176/99; RESP 14; TEMP 98.4
[2020-03-24] MEDS ORDERED: METOPROLOL TARTRATE 12.5 MG TAB PO SCH (14:45)
[2020-03-24] MEDS ORDERED: hydroCHLOROthiazide 25 MG TAB PO SCH (15:00)
[2020-03-24] MEDS ORDERED: NIFEdipine 10 MG CAP PO SCH (15:00)
--- NOTE | 2020-03-24 15:10 | PN ---
PROGRESS NOTE DATE OF SERVICE: 03/24/2020 This is a 64-year-old woman who was admitted after right total knee arthroplasty is improving significantly. Blood pressure is elevated at this time. No chest pain. No palpitations. No fever. PHYSICAL EXAMINATION: Alert and oriented x3. Pulse is 69, blood pressure 176/99, respiration 14, temperature 98.7, pulse ox 98% on room air. HEENT: Conjunctivae normal. NECK: No jugular venous distension. CARDIOVASCULAR SYSTEM: S1, S, muffled. RESPIRATION: Breath sounds diminsihed at the bases, no rhonchi, no crackles. ABDOMEN: Soft. LEGS: Status post surgery. NERVOUS SYSTEM: No focal deficits. LABS: WBC 13.8. UA is unremarkable. ASSESSMENT: 1. Status post right total knee arthroplasty. 2. Mild relative hypotension possibly secondary to pain medications as expected improved. 3. Hypertension. 4. Hyperlipidemia. 5. History of cerebrovascular accident. 6. History of degenerative joint disease. 7. History of mild aortic stenosis. 8. History of hysterectomy. 9. Remote history of nicotine dependence. 10.History of bladder surgery. RECOMMENDATION: Recommend to continue current management and symptomatic treatment. Resume the home medications. DVT prophylaxis. Closely follow with Dr. Carranza in the outpatient setting in 1-2 weeks. Otherwise, continue to monitor. Further recommendations to follow. MMODL / IJN: [id number] /
== END 2020-03-24 15:30 | disposition home health service (06) ==
LOC: OR 13:11 → 5NMEDONC 17:09 → 4SSUR 03-23 16:33 → OR 03-24 15:30
PROVIDERS: ATTEND Orthopaedic Surgery
DX: M17.11 Unilateral primary osteoarthritis, right knee (principal); M81.0 Age-related osteoporosis without current pathological fracture; I10 Essential (primary) hypertension; E78.5 Hyperlipidemia, unspecified; Z79.01 Long term (current) use of anticoagulants; Z79.02 Long term (current) use of antithrombotics/antiplatelets; Z79.1 Long term (current) use of non-steroidal anti-inflammatories (NSAID); Z79.82 Long term (current) use of aspirin; Z79.899 Other long term (current) drug therapy; Z86.73 Personal history of transient ischemic attack (TIA), and cerebral infarction without residual deficits; Z80.0 Family history of malignant neoplasm of digestive organs; Z87.891 Personal history of nicotine dependence; Z90.710 Acquired absence of both cervix and uterus; Z98.890 Other specified postprocedural states; Z88.0 Allergy status to penicillin; Z98.51 Tubal ligation status
CPT/HCPCS: 97116; 97161; 64448; 76942; 80048; 85025; 81003; 88300; 87086; 73560; 27447; C1713; C1776; J2250; J0171; J1100; J0690 ×3; J2405; J3010; J1885; J1170 ×3; J2795 ×2; J2704; J0735

== ENCOUNTER 2020-05-24 14:57 | Inpatient (IN) | payer MEDICARE, BC ==
--- NOTE | 2020-05-24 14:27 | CT ---
EXAMINATION TYPE: CT abdomen pelvis w con DATE OF EXAM: 05/24/2020 COMPARISON: None HISTORY: Right lower quadrant pain CT DLP: 752.80 mGycm Automated exposure control for dose reduction was used. CONTRAST: CT scan of the abdomen pelvis is performed with IV Contrast, patient injected with 100 ml mL of Isovu e 300. FINDINGS- LUNG XOYDR-ogzkbdx-gbeak calcification on the left. Lung bases are clear. Coronary artery calcificati on.. LIVER/GB-hyperdensity within the gallbladder may represent a gallstone. A mass not excluded recommend ultrasound. Liver homogeneous... PANCREAS- No gross abnormality is seen. SPLEEN-splenic granuloma noted. ADRENALS- No gross abnormality is seen. KIDNEYS/BLADDER- no hydronephrosis nephrolithiasis or renal mass. BOWEL-marked thickening of the right colonic wall may been the basis of a colitis however a colonic n eoplasm is in the differential diagnosis.. There is right iliac chain and pericolonic lymph nodes not ed measuring a short axis of 1 cm. I would consider a neoplastic. Appendix is normal.. LYMPH NODES-within the right lower quadrant there is a multiple small nodules seen adjacent to the th ickened colonic wall the largest has a short axis measurement of 1 cm. There is also soft tissue full ness in the right iliac chain injury in short axis of 1 cm. Findings suspicious for either colonic im plant or lymphadenopathy.. OSSEOUS STRUCTURES-hypertrophic and degenerative change of the spine.. OTHER- aorta of normal caliber with atherosclerotic change. There is a fat-containing anterior abdom inal wall hernia. IMPRESSION- 1. Severe right colonic wall thickening. There is adjacent lymphadenopathy. Differential diagnosis wo uld include a colonic neoplasm. Colitis not excluded correlate clinically. Favor colonic annular cons tricting neoplasm with adjacent implant or lymphadenopathy. 2. Hyperdensity within the gallbladder may represent a gallstone recommend ultrasound to exclude othe r etiologies.
[2020-05-24] MEDS ORDERED: HYDROmorphone 0.5 MG/0.5 ML SYRINGE IVP STA (15:11)
[2020-05-24] MEDS ORDERED: SODIUM CHLORIDE 0.9% 1,000 ML IV STA (15:11)
[2020-05-24] MEDS ORDERED: PANTOPRAZOLE 40 MG/10 ML VIAL IVP STA (15:11)
[2020-05-24] MEDS ORDERED: LEVOFLOXACIN 750MG-D5W PMX 750 MG in DEXTROSE/WATER 1 150ML.BAG IVPB STA (15:11)
--- NOTE | 2020-05-24 15:15 | ED ---
General Adult HPI - General Chief complaint: Abdominal Pain Stated complaint: Abdominal pain Time Seen by Provider: 05/24/20 15:03 Source: patient, RN/MD (Discussed case with Dr. Carranza, who recommends admission with GI or surgery consult for colonoscopy and antibiotics.), EMS, RN notes reviewed Mode of arrival: EMS Limitations: no limitations - History of Present Illness Initial comments: Patient is a pleasant 64-year-old female presenting to the emergency Department with complaints of abdominal discomfort. Onset of symptoms was 3 or 4 days ago. Patient has abdominal discomfort or the lower, somewhat more on the right. Patient did talk with Dr. Carranza and had outpatient computed tomography scan. Patient was advised emergency department following this. No fevers. No nausea vomiting. No constipation or diarrhea. No history of chronic abdominal problems are similar symptoms previously. - Related Data Home Medications Medication Instructions Recorded Confirmed Aspirin 81 mg PO DAILY 10/10/14 03/22/20 Clopidogrel [Plavix] 75 mg PO DAILY 10/10/14 03/22/20 Ibuprofen [Motrin] 800 mg PO BID 10/10/14 03/22/20 fentaNYL 100MCG/HR PATCH 100 mcg TRANSDERM Q48H 10/10/14 03/22/20 [Duragesic 100MCG/HR] hydroCHLOROthiazide [Hydrodiuril] 25 mg PO QAM 10/10/14 03/22/20 traMADol HCl [Ultram] 50 mg PO BID PRN 10/10/14 03/22/20 Ascorbic Acid [Vitamin C] 500 unit PO DAILY 09/26/16 03/22/20 HYDROcodone/APAP 10-325MG [[place] 1 tab PO Q8H PRN 09/26/16 03/22/20 10-325] Atorvastatin [Lipitor] 40 mg PO HS 03/18/20 03/22/20 Dorzolamide/Timolol/Pf [Cosopt Pf 1 applicator BOTH EYES BID 03/18/20 03/22/20 2%/5% Ophth Droperette] Ergocalciferol [Vitamin D2] 50,000 unit PO QMONTHLY 03/18/20 03/22/20 Famotidine [Pepcid] 20 mg PO Q12HR 03/18/20 03/22/20 Ferrous Sulfate [Feosol] 325 mg PO DAILY 03/18/20 03/22/20 Metoprolol Tartrate [Lopressor] 12.5 mg PO BID 03/18/20 03/22/20 Multivitamins, Thera [Multivitamin 1 tab PO DAILY 03/18/20 03/22/20 (formulary)] NIFEdipine XL [Procardia Xl] 60 mg PO DAILY 03/24/20 03/24/20 Previous Rx's Medication Instructions Recorded Apixaban [Eliquis] 2.5 mg PO BID #60 tab 03/24/20 Allergies Allergy/AdvReac Type Severity Reaction Status Date / Time Penicillins Allergy Rash/Hives Verified 05/24/20 15:00 Review of Systems ROS Statement: Those systems with pertinent positive or pertinent negative responses have been documented in the HPI. ROS Other: All systems not noted in ROS Statement are negative. Constitutional: Denies: fever, chills Eyes: Denies: eye pain ENT: Denies: ear pain Respiratory: Denies: cough Cardiovascular: Denies: chest pain Endocrine: Denies: fatigue Gastrointestinal: Reports: as per HPI, abdominal pain Genitourinary: Denies: dysuria Musculoskeletal: Denies: back pain Skin: Denies: rash Neurological: Denies: weakness Past Medical History Past Medical History: CVA/TIA, Hyperlipidemia, Hypertension, Osteoarthritis (OA) Additional Past Medical History / Comment(s): PATIENT STATES SHE WAS TOLD SHE HAD A "STROKE" THAT IS WHY SHE TAKES PLAVIX, "SLIGHT HEART MURMER", History of Any Multi-Drug Resistant Organisms: None Reported Past Surgical History: Bladder Surgery, Hysterectomy, Orthopedic Surgery Additional Past Surgical History / Comment(s): dona KNEE ARTHROSCOPY, dona carpal tunnel. bladder suspension, rt cataract Past Anesthesia/Blood Transfusion Reactions: No Reported Reaction Past Psychological History: No Psychological Hx Reported Smoking Status: Former smoker Past Alcohol Use History: None Reported Past Drug Use History: None Reported - Past Family History Mother Family Medical History: Cancer Father Family Medical History: Cancer Sister(s) Family Medical History: Cancer Additional Family Medical History / Comment(s): rectal General Exam Limitations: no limitations General appearance: alert, in no apparent distress Head exam: Present: normocephalic Eye exam: Present: normal appearance Neck exam: Present: normal inspection Respiratory exam: Present: normal lung sounds bilaterally Cardiovascular Exam: Present: regular rate, normal rhythm Expanded Peripheral pulses: 2+: Posterior Tibialis (R), Posterior Tibialis (L) GI/Abdominal exam: Present: soft, tenderness (Mild to moderate tenderness lower abdomen). Absent: distended, guarding, rebound, rigid Extremities exam: Present: normal inspection Neurological exam: Present: alert Psychiatric exam: Present: normal affect, normal mood Skin exam: Present: normal color Course Vital Signs 05/24/20 14:57 Temperature 98 F Pulse Rate 74 Respiratory 18 Rate Blood Pressure 166/62 O2 Sat by Pulse 100 Oximetry Medical Decision Making - Medical Decision Making Patient updated on CT results and plan. Case was discussed with Dr. Guerrier, who will admit covered for Dr. Carranza. - Lab Data Result diagrams: 05/24/20 15:31 Lab Results 05/24/20 Range/Units 15:31 WBC 11.5 H (3.8-10.6) k/uL RBC 4.41 (3.80-5.40) m/uL Hgb 13.4 (11.4-16.0) gm/dL Hct 40.4 (34.0-46.0) % MCV 91.6 (80.0-100.0) fL MCH 30.3 (25.0-35.0) pg MCHC 33.1 (31.0-37.0) g/dL RDW 12.4 (11.5-15.5) % Plt Count 280 (150-450) k/uL MPV 7.8 Neutrophils % 62 % Lymphocytes % 27 % Monocytes % 6 % Eosinophils % 4 % Basophils % 1 % Neutrophils # 7.1 (1.3-7.7) k/uL Lymphocytes # 3.0 (1.0-4.8) k/uL Monocytes # 0.6 (0-1.0) k/uL Eosinophils # 0.4 (0-0.7) k/uL Basophils # 0.1 (0-0.2) k/uL - Radiology Data Radiology results: report reviewed Disposition Clinical Impression: Colitis Disposition: ADMITTED IP TO THIS HOSP Is patient prescribed a controlled substance at d/c from ED?: No Referrals: None,Stated [REFERRING] - 1-2 days Decision Time: 15:54
[2020-05-24 15:41] LABS: Basophils # (A) 0.1 k/uL (0-0.2); Basophils % (A) 1 %; Eosinophils # (A) 0.4 k/uL (0-0.7); Eosinophils % (A) 4 %; HCT 40.4 % (34.0-46.0); HGB 13.4 gm/dL (11.4-16.0); Lymphocytes % (A) 27 %; MCH 30.3 pg (25.0-35.0); MCHC 33.1 g/dL (31.0-37.0); MCV 91.6 fL (80.0-100.0); Mean Platelet Volume 7.8; Monocytes # (A) 0.6 k/uL (0-1.0); Monocytes % (A) 6 %; Neutrophils # (A) 7.1 k/uL (1.3-7.7); Neutrophils % (A) 62 %; Platelet Count 280 k/uL (150-450); RBC 4.41 m/uL (3.80-5.40); RDW 12.4 % (11.5-15.5); WBC 11.5 k/uL (3.8-10.6)
[2020-05-24 15:53] LABS: ALT 21 U/L (4-34); AST 34 U/L (14-36); African American GFR (CKD) >90 (>60 ml/min/1.73 sqM); Albumin 4.6 g/dL (3.5-5.0); Alkaline Phosphatase 99 U/L (38-126); Amylase 42 U/L (30-110); Anion Gap 11 mmol/L; Blood Urea Nitrogen 9 mg/dL (7-17); Calcium 10.3 mg/dL (8.4-10.2); Carbon Dioxide 26 mmol/L (22-30); Chloride 101 mmol/L (98-107); Glucose 91 mg/dL (74-99); Lipase 27 U/L (23-300); Non-African American GFR(CKD) >90 (>60 ml/min/1.73 sqM); Potassium 3.8 mmol/L (3.5-5.1); Sodium 138 mmol/L (137-145); Total Bilirubin 0.5 mg/dL (0.2-1.3); Total Protein 8.6 g/dL (6.3-8.2)
[2020-05-24] MEDS ORDERED: HYDROmorphone 0.5 MG/0.5 ML SYRINGE IVP PRN (15:55)
[2020-05-24] MEDS ORDERED: NALOXONE 0.4 MG/ML 1 ML VIAL IV PRN (15:55)
[2020-05-24 16:17] LABS: Appearance,Urine Clear (Clear); Bilirubin,Urine Negative (Negative); Blood,Urine Negative (Negative); Color,Urine Light Yellow; Glucose,Urine (UA) Negative (Negative); Ketones,Urine Negative (Negative); Leukocyte Esterase,Urine Negative (Negative); Nitrite,Urine Negative (Negative); PH, Urine 7.5 (5.0-8.0); Protein,Urine Negative (Negative); Urobilinogen,Urine <2.0 mg/dL (<2.0)
[2020-05-24 16:26] LABS: Specific Gravity,Urine >1.050 (1.001-1.035)
[2020-05-24] MEDS: SODIUM CHLORIDE 0.9% 1,000 ML IV SCH (16:48)
--- NOTE | 2020-05-24 19:08 | US ---
EXAMINATION TYPE: US gallbladder DATE OF EXAM: 05/24/2020 COMPARISON: Same-day CT. CLINICAL HISTORY: evaluate for lesion, pain. RLQ pain per patient EXAM MEASUREMENTS: Liver Length: 16.5 cm Gallbladder Wall: 0.2 cm CBD: 0.6 cm Right Kidney: 9.2 x 5.1 x 3.7 cm Pancreas: wnl as visualized due to overlying bowel gas Liver: wnl Gallbladder: enlarged; multiple shadowing stones seen in fundus; wall thickness is wnl Evidence for sonographic Alan's sign: no CBD: wnl Right Kidney: No hydronephrosis or masses seen IMPRESSION: Cholelithiasis without acute cholecystitis. No definitive abnormal masses seen. However given concern for colon malignancy, recommend attention o n follow-up CT.
[2020-05-24] MEDS: HYDROmorphone 1 MG/ML 1 ML SYRINGE IVP PRN (22:26)
[2020-05-25] MEDS: SODIUM CHLORIDE 0.9% 1,000 ML IV SCH ×3 (01:44→17:12)
[2020-05-25] MEDS: HYDROmorphone 1 MG/ML 1 ML SYRINGE IVP PRN ×4 (01:50→21:13)
[2020-05-25 06:13] LABS: Basophils % (A) 0 %; Eosinophils # (A) 0.4 k/uL (0-0.7); Eosinophils % (A) 4 %; HCT 33.2 % (34.0-46.0); Lymphocytes % (A) 32 %; MCH 30.3 pg (25.0-35.0); MCHC 33.1 g/dL (31.0-37.0); MCV 91.5 fL (80.0-100.0); Monocytes # (A) 0.7 k/uL (0-1.0); Monocytes % (A) 7 %; Neutrophils # (A) 5.1 k/uL (1.3-7.7); Neutrophils % (A) 54 %; Platelet Count 239 k/uL (150-450); RBC 3.62 m/uL (3.80-5.40); RDW 12.3 % (11.5-15.5); WBC 9.4 k/uL (3.8-10.6)
[2020-05-25] MEDS: PANTOPRAZOLE 40 MG/10 ML VIAL IV SCH (07:50)
[2020-05-25] MEDS: HEPARIN SODIUM,PORCINE 5,000 UNIT/ML 1 ML VIAL SQ SCH ×2 (07:50→16:41)
[2020-05-25] MEDS: metroNIDAZOLE-NS PMX 500 MG in SALINE 1 100ML.BAG IVPB SCH ×2 (07:51→16:40)
[2020-05-25] MEDS: METOPROLOL TARTRATE 25 MG TAB PO SCH ×2 (07:51→21:19)
[2020-05-25] MEDS: TIMOLOL RIGHT EYE SCH (09:13)
[2020-05-25] MEDS: DORZOLAMIDE RIGHT EYE SCH (09:13)
--- NOTE | 2020-05-25 10:59 | P.HPIM ---
History of Present Illness H&P Date: 05/24/20 Chief Complaint: Abdominal pain Patient is a 64-year-old female with a known history of hypertension, hyperlipidemia, history of CVA/TIA, osteoarthritis and previous history of smoking presents to ER with complaints of abdominal pain mainly in the right lower quadrant. Patient has been having pain for the past 3-4 days. Denied any complains of fever or chills. No diarrhea. Patient did call her primary care physician Dr. Carranza and had outpatient computed tomography scan. Patient was advised to go to ER. Otherwise patient denied any chest pain or shortness of breath. Denied any recent illnesses. CT of the abdominal pelvis showed severe right colonic wall thickening. There is adjacent lymphadenopathy. Differential diagnosis would include a colonic neoplasm. Colitis not excluded clinically. Favor colonic annular constricting neoplasm with adjacent implant or lymphadenopathy. Hypodensity within the gallbladder may represent a gallstone recommended ultras ound to exclude other etiologies. Ultrasound of the gallbladder showed cholelithiasis without acute cholecystitis. No definitive abnormal masses seen. However given concern for colon malignancy recommended admission on the follow-up CT. Laboratory data showed WBC 11.5, hemoglobin 13.4 and platelets 218 Sodium 138, potassium 3.8, BUN 19 and creatinine 0.71, calcium 10.3 UA negative for infection. Review of Systems Constitutional: Patient denies any fever or chills . No generalized weakness or weight loss. Abdomen: Patient denied nausea vomiting and diarrhea . Patient does have right lower quadrant abdominal pain. Cardiovascular: Patient denies any chest pain or short of breath no palpitations. Respiratory: patient denied any cough is from production. No shortness of breath Neurologic: Patient denied any numbness or tingling headache. Musculoskeletal: Patient denies any complaints of joint swelling or deformity. Skin: Negative Psychiatric: Negative Endocrine: No heat or cold intolerance. No recent weight gain. Genitourinary: No dysuria or hematuria. All other 14 point ROS negative except the above Past Medical History Past Medical History: CVA/TIA, Hyperlipidemia, Hypertension, Osteoarthritis (OA) Additional Past Medical History / Comment(s): PATIENT STATES SHE WAS TOLD SHE HAD A "STROKE" THAT IS WHY SHE TAKES PLAVIX, "SLIGHT HEART MURMER", History of Any Multi-Drug Resistant Organisms: None Reported Past Surgical History: Bladder Surgery, Hysterectomy, Orthopedic Surgery Additional Past Surgical History / Comment(s): dona KNEE ARTHROSCOPY, dona carpal tunnel. bladder suspension, rt cataract Past Anesthesia/Blood Transfusion Reactions: No Reported Reaction Past Psychological History: No Psychological Hx Reported Smoking Status: Former smoker Past Alcohol Use History: None Reported Additional Past Alcohol Use History / Comment(s): quit smoking 30 yrs ago, smoked for 4-5 yrs Past Drug Use History: None Reported - Past Family History Mother Family Medical History: Cancer Father Family Medical History: Cancer Sister(s) Family Medical History: Cancer Additional Family Medical History / Comment(s): rectal Medications and Allergies Home Medications Medication Instructions Recorded Confirmed Type Aspirin 81 mg PO DAILY 10/10/14 05/24/20 History Clopidogrel [Plavix] 75 mg PO DAILY 10/10/14 05/24/20 History Ibuprofen [Motrin] 800 mg PO TID PRN 10/10/14 05/24/20 History fentaNYL 100MCG/HR PATCH 100 mcg TRANSDERM Q48H 10/10/14 05/24/20 History [Duragesic 100MCG/HR] hydroCHLOROthiazide [Hydrodiuril] 25 mg PO DAILY 10/10/14 05/24/20 History traMADol HCl [Ultram] 50 - 100 mg PO Q6H PRN 10/10/14 05/24/20 History Ascorbic Acid [Vitamin C] 500 unit PO DAILY 09/26/16 05/24/20 History HYDROcodone/APAP 10-325MG [[place] 1 tab PO Q8H PRN 09/26/16 05/24/20 History 10-325] Atorvastatin [Lipitor] 40 mg PO HS 03/18/20 05/24/20 History Dorzolamide/Timolol/Pf [Cosopt Pf 1 applicator RIGHT EYE BID 03/18/20 05/24/20 History 2%/5% Ophth Droperette] Ergocalciferol [Vitamin D2] 50,000 unit PO QMONTHLY 03/18/20 05/24/20 History Famotidine [Pepcid] 20 mg PO BID PRN 03/18/20 05/24/20 History Ferrous Sulfate [Feosol] 325 mg PO DAILY 03/18/20 05/24/20 History Metoprolol Tartrate [Lopressor] 12.5 mg PO BID 03/18/20 05/24/20 History Multivitamins, Thera [Multivitamin 1 tab PO DAILY 03/18/20 05/24/20 History (formulary)] NIFEdipine XL [Procardia Xl] 60 mg PO DAILY 03/24/20 05/24/20 History Biotin 5 mg PO DAILY 05/24/20 05/24/20 History Cetirizine HCl 10 mg PO DAILY 05/24/20 05/24/20 History Melatonin 3 mg PO HS 05/24/20 05/24/20 History [place]-3 Fatty Acids [[place]-3] 1,000 mg PO DAILY 05/24/20 05/24/20 History Vitamin B Complex 1 cap PO DAILY 05/24/20 05/24/20 History Allergies Allergy/AdvReac Type Severity Reaction Status Date / Time Penicillins Allergy Rash/Hives Verified 05/24/20 16:31 Physical Exam Vitals: Vital Signs Temp Pulse Pulse Resp BP BP Pulse Ox 05/24/20 20:30 97.6 F 70 16 155/72 100 05/24/20 19:01 98 F 74 18 148/79 99 05/24/20 18:00 74 18 148/79 99 05/24/20 17:00 71 18 146/68 99 05/24/20 16:00 73 18 99 05/24/20 15:59 70 18 136/70 99 05/24/20 14:57 98 F 74 18 166/62 100 Intake and Output 05/24/20 05/24/20 05/25/20 14:59 22:59 06:59 Other: Weight 77.111 kg 77.111 kg PHYSICAL EXAMINATION: Patient is lying in the bed comfortably, no acute distress, awake alert and oriented.. HEENT: Normocephalic. Neck is supple. Pupils reactive. Nostrils clear. Oral cavity is moist. Ears reveal no drainage. Neck reveals no JVD, carotid bruits, or thyromegaly. CHEST EXAMINATION: Trachea is central. Symmetrical expansion. Lung fletcher clear to auscultation and percussion. CARDIAC: Normal S1, S2 with no gallops. No murmurs ABDOMEN: Soft. Right lower quadrant tenderness. No guarding. Bowel sounds normal. No organomegaly. No abdominal bruits. Extremities: reveal no edema. No clubbing or cyanosis Neurologically awake, alert, oriented x3 with well-coordinated movements. No focal deficits noted Skin: No rash or skin lesions. Psychiatric: Coperative. Nonsuicidal Musculoskeletal: No joint swelling or deformity. Normal range of motion. Results CBC & Chem 7: 05/25/20 05:30 05/24/20 15:31 Labs: Abnormal Lab Results - Last 24 Hours (Table) 05/24/20 05/24/20 05/24/20 Range/Units 15:31 15:31 15:31 WBC 11.5 H (3.8-10.6) k/uL Calcium 10.3 H (8.4-10.2) mg/dL Total Protein 8.6 H (6.3-8.2) g/dL Ur Specific [place] >1.050 H (1.001-1.035) Thrombosis Risk Factor Assmnt - DVT/VTE Prophylaxis DVT/VTE Prophylaxis: Pharmacologic Prophylaxis ordered - Choose All That Apply Each Factor Represents 1 point: Obesity (BMI >25) Each Risk Factor Represents 2 Points: Age 61-74 years Thrombosis Risk Factor Assessment Total Risk Factor Score: 3 Thrombosis Risk Factor Assessment Level: Moderate Risk Assessment and Plan Assessment: Right lower quadrant Abdominal pain due to Acute colitis Possible underlying colonic neoplasm Hypertension Hyperlipidemia History of CVA/TIA Osteoarthritis DVT prophylaxis with heparin subcu Plan: Patient will be continued on IV hydration and nothing by mouth. Continue with pain management and antibiotics in the form of Levaquin and Flagyl. Gastroenterology was consulted for further management. Continue to follow closely Time with Patient: Greater than 30
[2020-05-25 15:21] LABS: African American GFR (CKD) 107.6 (60.0-200.0); Albumin 3.8 g/dL (3.80-4.90); Albumin/Globulin Ratio 1.73 (1.60-3.17); Anion Gap 10.2 mmol/L (4.00-12.00); Calcium 9.3 mg/dL (8.7-10.3); Carbon Dioxide 23.8 mmol/L (21.6-31.8); Globulin 2.2 g/dL (1.6-3.3); Non-African American GFR(CKD) 92.9 (60.0-200.0); Potassium 3.8 mmol/L (3.5-5.5); Total Bilirubin 0.4 mg/dL (0.2-1.2)
[2020-05-25] MEDS ORDERED: PEG 3350-NA SULF,BICARB,CL/KCL 4,000 ML BOTTLE PO ONE (17:00)
[2020-05-25] MEDS: LEVOFLOXACIN 750MG-D5W PMX 750 MG in DEXTROSE/WATER 1 150ML.BAG IVPB SCH (18:00)
[2020-05-25] MEDS ORDERED: TRIMETHOBENZAMIDE 100 MG/ML 2 ML VIAL IM PRN (21:10)
[2020-05-25] MEDS: ATORVASTATIN 80 MG TAB PO SCH (21:18)
[2020-05-26] MEDS: TIMOLOL RIGHT EYE SCH ×3 (00:06→20:13)
[2020-05-26] MEDS: DORZOLAMIDE RIGHT EYE SCH ×3 (00:06→20:13)
[2020-05-26] MEDS: metroNIDAZOLE-NS PMX 500 MG in SALINE 1 100ML.BAG IVPB SCH ×3 (00:27→17:47)
[2020-05-26] MEDS: SODIUM CHLORIDE 0.9% 1,000 ML IV SCH ×3 (00:27→17:59)
[2020-05-26] MEDS: HEPARIN SODIUM,PORCINE 5,000 UNIT/ML 1 ML VIAL SQ SCH ×3 (00:30→17:53)
[2020-05-26] MEDS: PANTOPRAZOLE 40 MG/10 ML VIAL IV SCH (09:56)
[2020-05-26] MEDS: METOPROLOL TARTRATE 25 MG TAB PO SCH ×2 (09:56→20:05)
[2020-05-26 10:03] LABS: HGB 11.1 gm/dL (11.4-16.0); MCHC 32.8 g/dL (31.0-37.0); MCV 91.4 fL (80.0-100.0); Mean Platelet Volume 7.8; Platelet Count 287 k/uL (150-450); RBC 3.71 m/uL (3.80-5.40); RDW 12.3 % (11.5-15.5); WBC 7.1 k/uL (3.8-10.6)
[2020-05-26 10:12] LABS: African American GFR (CKD) >90 (>60 ml/min/1.73 sqM); Anion Gap 7 mmol/L; Blood Urea Nitrogen 5 mg/dL (7-17); Calcium 9.3 mg/dL (8.4-10.2); Carbon Dioxide 24 mmol/L (22-30); Chloride 110 mmol/L (98-107); Glucose 99 mg/dL (74-99); Non-African American GFR(CKD) >90 (>60 ml/min/1.73 sqM); Sodium 141 mmol/L (137-145)
--- NOTE | 2020-05-26 11:13 | P.PN ---
Subjective Progress Note Date: 05/25/20 Principal diagnosis: Acute colitis Possible colonic neoplasm Patient is a 64-year-old female with a known history of hypertension, hyperlipidemia, history of CVA/TIA, osteoarthritis and previous history of smoking presents to ER with complaints of abdominal pain mainly in the right lower quadrant. Patient has been having pain for the past 3-4 days. Denied any complains of fever or chills. No diarrhea. Patient did call her primary care physician Dr. Carranza and had outpatient computed tomography scan. Patient was advised to go to ER. Otherwise patient denied any chest pain or shortness of breath. Denied any recent illnesses. CT of the abdominal pelvis showed severe right colonic wall thickening. There is adjacent lymphadenopathy. Differential diagnosis would include a colonic neoplasm. Colitis not excluded clinically. Favor colonic annular constricting neoplasm with adjacent implant or lymphadenopathy. Hypodensity within the gallbladder may represent a gallstone recommended ultrasound to exclude other etiologies. Ultrasound of the gallbladder showed cholelithiasis without acute cholecystitis. No definitive abnormal masses seen. However given concern for colon malignancy recommended admission on the follow-up CT. Laboratory data showed WBC 11.5, hemoglobin 13.4 and platelets 218 Sodium 138, potassium 3.8, BUN 19 and creatinine 0.71, calcium 10.3 UA negative for infection. 05/25/2020 Patient is currently resting in the bed comfortably. Denied any complaints of nausea and vomiting. Abdominal discomfort is still present mainly in the right lower quadrant. Leukocytosis is resolved. Patient is being continued on antibiotic Levaquin and Flagyl. Patient was seen by gastroenterology and is planning for colonoscopy tomorrow. No chest pain or shortness of breath. No headache or dizziness lightheadedness. Current medications reviewed. Objective - Vital Signs Vital signs: Vital Signs Temp 97.9 F 05/25/20 14:00 Pulse 83 05/25/20 14:00 Resp 18 05/25/20 14:00 BP 136/84 05/25/20 14:00 Pulse Ox 95 05/25/20 14:00 Intake & Output 05/24/20 05/25/20 05/25/20 18:59 06:59 18:59 Intake Total 240 Balance 240 Weight 77.111 kg 77.111 kg Intake: Oral 240 Other: # Voids 1 - Exam PHYSICAL EXAMINATION: Patient is lying in the bed comfortably, no acute distress, awake alert and oriented.. HEENT: Normocephalic. Neck is supple. Pupils reactive. Nostrils clear. Oral cavity is moist. Ears reveal no drainage. Neck reveals no JVD, carotid bruits, or thyromegaly. CHEST EXAMINATION: Trachea is central. Symmetrical expansion. Lung fletcher clear to auscultation and percussion. CARDIAC: Normal S1, S2 with no gallops. No murmurs ABDOMEN: Soft. Minimal right lower quadrant tenderness. Bowel sounds normal. No organomegaly. No abdominal bruits. Extremities: reveal no edema. No clubbing or cyanosis Neurologically awake, alert, oriented x3 with well-coordinated movements. No focal deficits noted Skin: No rash or skin lesions. Psychiatric: Coperative. Nonsuicidal Musculoskeletal: No joint swelling or deformity. Normal range of motion. - Labs CBC & Chem 7: 05/26/20 09:09 05/26/20 09:09 Labs: Abnormal Lab Results - Last 24 Hours (Table) 05/25/20 05/25/20 Range/Units 05:30 05:30 RBC 3.62 L (3.80-5.40) m/uL Hgb 11.0 L (11.4-16.0) gm/dL Hct 33.2 L (34.0-46.0) % BUN 7.0 L (9.0-27.0) mg/dL BUN/Creatinine Ratio 10.00 L (12.00-20.00) Ratio Total Protein 6.0 L (6.2-8.2) g/dL Microbiology - Last 24 Hours (Table) 05/24/20 15:31 Blood Culture - Preliminary Blood No Growth after 24 hours Assessment and Plan Assessment: Right lower quadrant Abdominal pain due to Acute colitis Possible underlying colonic neoplasm Hypertension Hyperlipidemia History of CVA/TIA Osteoarthritis DVT prophylaxis with heparin subcu Plan: Patient will be continued on IV hydration and nothing by mouth. Continue with pain management and antibiotics in the form of Levaquin and Flagyl. Gastroenterology has seen the patient and is planning for colonoscopy tomorrow. Continue to follow closely Time with Patient: Greater than 30
[2020-05-26] MEDS ORDERED: LACTATED RINGERS 1,000 ML IV ONE (12:02)
[2020-05-26] MEDS ORDERED: PROPOFOL 10 MG/ML 20 ML VIAL IV ONE (12:07)
--- NOTE | 2020-05-26 12:22 | P.CONS ---
History of Present Illness - Reason for Consult Consult date: 05/25/20 Colitis Requesting physician: Ioana Guerrier - Chief Complaint Abdominal pain - History of Present Illness 64-year-old female with a medical history significant for hypertension, hyperlipidemia, osteoarthritis and prior CVA/TIA who presented to the hospital complaining of abdominal pain. She reports cramping and aching in her right and left lower abdomen. Symptoms started over the weekend and had progressed. Last bowel movement 3 days ago and normal. No signs or symptoms of GI bleeding. No nausea or vomiting. Laboratory evaluation on doesn't patient significant for WBC 9.4, hemoglobin 11, platelet count 239,000 with amylase 42 and lipase 27, total bilirubin 0.5, alkaline phosphatase 99, AST 34 and ALT 21. Last colonoscopy in 04/26/2017 normal with scattered diverticulosis. Patient is on aspirin and Plavix therapy and reports she is not taking the medicine over the past 3 days. Computed tomography scan of the abdomen performed in evaluation showed severe right colonic wall thickening with adjacent lymphadenopathy with differential including colonic neoplasm, with colitis not excluded as well as possible gallstone. Review of Systems REVIEW OF SYSTEMS: CONSTITUTIONAL: Denies any fevers, chills, weight change or fatigue. CARDIOVASCULAR: Denies any chest pain, palpitations high or low blood pressures RESPIRATORY: Denies any shortness of breath, hemoptysis or cough. GENITOURINARY: No dysuria or hematuria. MUSCULOSKELETAL: No weakness reported. SKIN: Denies any new rashes or lesions, jaundice or pallor. PSYCHIATRIC: Denies any depression or anxiety. NEUROLOGY: Denies headache, denies any new focal deficits. EARS/NOSE/THROAT: No recent hearing change, congestion, nasal discharge or sore throat. EYES: No pain in eyes, discharge or change in vision. GASTROINTESTINAL: As per HPI. Past Medical History Past Medical History: CVA/TIA, Hyperlipidemia, Hypertension, Osteoarthritis (OA) Additional Past Medical History / Comment(s): PATIENT STATES SHE WAS TOLD SHE HAD A "STROKE" THAT IS WHY SHE TAKES PLAVIX, "SLIGHT HEART MURMER", History of Any Multi-Drug Resistant Organisms: None Reported Past Surgical History: Bladder Surgery, Hysterectomy, Orthopedic Surgery Additional Past Surgical History / Comment(s): dona KNEE ARTHROSCOPY, dona carpal tunnel. bladder suspension, rt cataract Past Anesthesia/Blood Transfusion Reactions: No Reported Reaction Past Psychological History: No Psychological Hx Reported Smoking Status: Former smoker Past Alcohol Use History: None Reported Additional Past Alcohol Use History / Comment(s): quit smoking 30 yrs ago, smoked for 4-5 yrs Past Drug Use History: None Reported - Past Family History Mother Family Medical History: Cancer Father Family Medical History: Cancer Sister(s) Family Medical History: Cancer Additional Family Medical History / Comment(s): rectal Medications and Allergies Home Medications Medication Instructions Recorded Confirmed Type Aspirin 81 mg PO DAILY 10/10/14 05/24/20 History Clopidogrel [Plavix] 75 mg PO DAILY 10/10/14 05/24/20 History Ibuprofen [Motrin] 800 mg PO TID PRN 10/10/14 05/24/20 History fentaNYL 100MCG/HR PATCH 100 mcg TRANSDERM Q48H 10/10/14 05/24/20 History [Duragesic 100MCG/HR] hydroCHLOROthiazide [Hydrodiuril] 25 mg PO DAILY 10/10/14 05/24/20 History traMADol HCl [Ultram] 50 - 100 mg PO Q6H PRN 10/10/14 05/24/20 History Ascorbic Acid [Vitamin C] 500 unit PO DAILY 09/26/16 05/24/20 History HYDROcodone/APAP 10-325MG [Hooper 1 tab PO Q8H PRN 09/26/16 05/24/20 History 10-325] Atorvastatin [Lipitor] 40 mg PO HS 03/18/20 05/24/20 History Dorzolamide/Timolol/Pf [Cosopt Pf 1 applicator RIGHT EYE BID 03/18/20 05/24/20 History 2%/5% Ophth Droperette] Ergocalciferol [Vitamin D2] 50,000 unit PO QMONTHLY 03/18/20 05/24/20 History Famotidine [Pepcid] 20 mg PO BID PRN 03/18/20 05/24/20 History Ferrous Sulfate [Feosol] 325 mg PO DAILY 03/18/20 05/24/20 History Metoprolol Tartrate [Lopressor] 12.5 mg PO BID 03/18/20 05/24/20 History Multivitamins, Thera [Multivitamin 1 tab PO DAILY 03/18/20 05/24/20 History (formulary)] NIFEdipine XL [Procardia Xl] 60 mg PO DAILY 03/24/20 05/24/20 History Biotin 5 mg PO DAILY 05/24/20 05/24/20 History Cetirizine HCl 10 mg PO DAILY 05/24/20 05/24/20 History Melatonin 3 mg PO HS 05/24/20 05/24/20 History Oscar-3 Fatty Acids [Oscar-3] 1,000 mg PO DAILY 05/24/20 05/24/20 History Vitamin B Complex 1 cap PO DAILY 05/24/20 05/24/20 History Allergies Allergy/AdvReac Type Severity Reaction Status Date / Time Penicillins Allergy Rash/Hives Verified 05/24/20 16:31 Physical Exam Vitals: Vital Signs Temp Pulse Pulse Resp BP BP Pulse Ox 05/25/20 07:35 98.8 F 67 17 124/72 97 05/25/20 01:13 98.2 F 55 L 17 137/68 98 05/24/20 20:30 97.6 F 70 16 155/72 100 05/24/20 20:00 16 05/24/20 19:01 98 F 74 18 148/79 99 05/24/20 18:00 74 18 148/79 99 05/24/20 17:00 71 18 146/68 99 05/24/20 16:00 73 18 99 05/24/20 15:59 70 18 136/70 99 05/24/20 14:57 98 F 74 18 166/62 100 Intake and Output 05/24/20 05/25/20 05/25/20 22:59 06:59 14:59 Intake Total 240 Balance 240 Intake: Oral 240 Other: # Voids 1 1 Weight 77.111 kg On physical examination, patient appears comfortable in no apparent distress. HEAD: Normocephalic, atraumatic. EYES: No scleral icterus. No conjunctival injection. MOUTH: No lesions, tongue midline. NECK: Trachea midline, no gross abnormalities. CHEST: Clear to auscultation with no wheezing or rhonchi appreciated. HEART: Regular rate and rhythm. ABDOMEN: Soft, mildly tender to palpation in the right and left lower quadrant of the abdomen. Bowel sounds are positive. No organomegaly. No guarding or rigidity. EXTREMITIES: No pedal edema. SKIN: No rashes, no jaundice. NEUROLOGIC: Alert and oriented x3. No focal deficits. Results CBC & Chem 7: 05/26/20 09:09 05/26/20 09:09 Labs: Abnormal Lab Results - Last 24 Hours (Table) 05/24/20 05/24/20 05/24/20 Range/Units 15:31 15:31 15:31 WBC 11.5 H (3.8-10.6) k/uL RBC (3.80-5.40) m/uL Hgb (11.4-16.0) gm/dL Hct (34.0-46.0) % Calcium 10.3 H (8.4-10.2) mg/dL Total Protein 8.6 H (6.3-8.2) g/dL Ur Specific Celina >1.050 H (1.001-1.035) 05/25/20 Range/Units 05:30 WBC (3.8-10.6) k/uL RBC 3.62 L (3.80-5.40) m/uL Hgb 11.0 L (11.4-16.0) gm/dL Hct 33.2 L (34.0-46.0) % Calcium (8.4-10.2) mg/dL Total Protein (6.3-8.2) g/dL Ur Specific [place] (1.001-1.035) CT scan - abdomen: report reviewed (Computed tomography scan of the abdomen significant for severe right colonic wall thickening with adjacent lymphadenopathy with differential including neoplasm or nonspecific colitis as well as hyperdensity in the gallbladder likely representing representing stone.) Assessment and Plan (1) Colitis Narrative/Plan: 64-year-old female with a medical history significant for hypertension, hyperlipidemia, prior CVA who presented to the hospital visit abdominal pain. She reports progressive lower abdominal pain in the right and left lower quadr ant of the abdomen. She denies any change in bowel habits or blood per rectum. Last colonoscopy in 2017 and significant for diverticulosis and otherwise normal. Amylase and lipase normal. Liver enzymes within normal limits with hemoglobin of 11 and a PVC 9.4. Computed tomography scan of the abdomen performed in evaluation showed severe right colonic wall thickening with adjacent lymphadenopathy with differential including colonic neoplasm, colitis or other etiology. Current Visit: Yes Status: Acute Code(s): K52.9 - NONINFECTIVE GASTROENTERITIS AND COLITIS, UNSPECIFIED SNOMED Code(s): 59728144 (2) Abnormal computed tomography scan Current Visit: Yes Status: Acute Code(s): R93.89 - ABNORMAL FINDINGS ON DX IMAGING OF OTH BODY STRUCTURES SNOMED Code(s): 978424709 Plan: Supportive care Clear liquid diet Nothing by mouth after midnight Bowel prep ordered Continue broad-spectrum antibiotic therapy for suspected colitis Extensive discussion with the patient regarding findings of imaging, at this time we will proceed with colonoscopy for further evaluation with THE risks, benefits and possible complications of the procedure discussed with the patient went for vulvar questions answered to her satisfaction for further evaluation of abnormal CT findings Thank you for allowing us to participate in the care of the patient we will continue to follow
--- NOTE | 2020-05-26 12:52 | P.PCN ---
Date of Procedure: 05/26/20 Description of Procedure: BRIEF HISTORY: 64-year-old female with a medical history significant for hypertension, hyperlipidemia, osteoarthritis and prior CVA/TIA who presented to the hospital complaining of abdominal pain. She reports cramping and aching in her right and left lower abdomen. Symptoms started over the weekend and had progressed. Last bowel movement 3 days ago and normal. No signs or symptoms of GI bleeding. No nausea or vomiting. Laboratory evaluation on doesn't patient significant for WBC 9.4, hemoglobin 11, platelet count 239,000 with amylase 42 and lipase 27, total bilirubin 0.5, alkaline phosphatase 99, AST 34 and ALT 21. Last colonoscopy in 04/26/2017 normal with scattered diverticulosis. Patient is on aspirin and Plavix therapy and reports she is not taking the medicine over the past 3 days. Computed tomography scan of the abdomen performed in evaluation showed severe right colonic wall thickening with adjacent lymphadenopathy with differential including colonic neoplasm, with colitis not excluded as well as possible gallstone. PROCEDURE PERFORMED: Colonoscopy with biopsy and polypectomy. PREOPERATIVE DIAGNOSIS: Colitis, abdominal pain, abnormal computed tomography scan abdomen, last colonoscopy 2016. ESTIMATED BLOOD LOSS: Minimal. IV sedation per Anesthesia. PROCEDURE: After informed consent was obtained, the patient, was brought into the endoscopy unit. IV sedation was administered by Anesthesia under continuous monitoring. Digital rectal examination was normal. Initially the Olympus CF-190 flexible video colonoscope was then inserted in the rectum, gradually advanced into the cecum without any difficulty. Careful examination was performed as the scope was gradually being withdrawn. Ileocecal valve and the appendiceal orifice were visualized and appeared normal. Prep was excellent. Mucosa of the cecum, trans verse colon, descending colon, sigmoid colon, and rectum appeared normal. In the ascending colon there was patchy areas of erythema and ulceration suggestive of moderate to severe colitis with biopsies taken of the area. A diminutive polyp was found in the descending colon measuring 2 mm in size removed with cold forcep polypectomy. Retroflexion was performed in the rectum and no lesions were seen, internal hemorrhoids noted. The patient tolerated the procedure well. IMPRESSION: Moderate to severe right-sided colitis, multiple biopsies taken to rule out underlying neoplasm, however suspicion is for ischemic etiology. Diminutive descending colon polyp removed with cold forceps. RECOMMENDATIONS: Findings of this examination were discussed with the patient . Okay for full liquid diet. Continue broad-spectrum antibiotic therapy. We will initiate full liquid diet and if patient continues to do well and advance to low fiber low residual tomorrow. Await pathology from biopsies. Patient should follow-up in the GI clinic next week for results of pathology from biopsies.
[2020-05-26] MEDS: ATORVASTATIN 80 MG TAB PO SCH (20:05)
[2020-05-26] MEDS: LEVOFLOXACIN 750MG-D5W PMX 750 MG in DEXTROSE/WATER 1 150ML.BAG IVPB SCH (20:05)
[2020-05-26] MEDS: HYDROmorphone 1 MG/ML 1 ML SYRINGE IVP PRN (20:05)
[2020-05-27] MEDS: metroNIDAZOLE-NS PMX 500 MG in SALINE 1 100ML.BAG IVPB SCH ×4 (00:18→23:33)
[2020-05-27] MEDS: HEPARIN SODIUM,PORCINE 5,000 UNIT/ML 1 ML VIAL SQ SCH ×4 (00:18→23:32)
[2020-05-27] MEDS: SODIUM CHLORIDE 0.9% 1,000 ML IV SCH ×4 (00:35→23:33)
[2020-05-27] MEDS: METOPROLOL TARTRATE 25 MG TAB PO SCH ×2 (08:28→20:27)
[2020-05-27] MEDS: PANTOPRAZOLE 40 MG/10 ML VIAL IV SCH (08:29)
[2020-05-27] MEDS: DORZOLAMIDE RIGHT EYE SCH ×2 (09:06→20:29)
[2020-05-27] MEDS: TIMOLOL RIGHT EYE SCH ×2 (09:06→20:29)
--- NOTE | 2020-05-27 13:45 | P.PN ---
Subjective Progress Note Date: 05/27/20 Principal diagnosis: Abdominal pain, colitis She was seen and examined lying in bed. She is status post colonoscopy yesterday. She states her abdominal pain has improved. She did have a loose bowel movement this morning. She is tolerating a full liquid diet however she is lactose intolerant unable to eat many of the options. Patient states she would like to try to advance her diet today. She's been afebrile with no acute changes through the night. She denies any nausea or vomiting or blood in the stool. Objective - Vital Signs Vital signs: Vital Signs Temp 98.4 F 05/27/20 08:00 Pulse 99 05/27/20 08:00 Resp 16 05/27/20 08:00 BP 137/66 05/27/20 08:00 Pulse Ox 99 05/27/20 08:00 Intake & Output 05/26/20 05/27/20 05/27/20 18:59 06:59 18:59 Intake Total 436 Balance 436 Intake: IV 200 Oral 236 Other: Voiding Method Toilet # Voids 1 2 - Exam General appearance: The patient is alert, oriented, in no acute distress. HET: Head is normocephalic and atraumatic. Conjunctiva pink. Sclera anicteric. Neck: Supple without lymphadenopathy. Abdomen: Soft, mild lower abdominal tenderness, nondistended with bowel sounds. No guarding or rigidity. Extremities: Normal skin color and turgor. No pedal edema Neurological: No focal deficits. Alert and oriented 3. - Labs CBC & Chem 7: 05/26/20 09:09 05/26/20 09:09 Labs: Abnormal Lab Results - Last 24 Hours (Table) 05/26/20 Range/Units 09:09 Chloride 110 H (98-107) mmol/L BUN 5 L (7-17) mg/dL Microbiology - Last 24 Hours (Table) 05/24/20 15:31 Blood Culture - Preliminary Blood No Growth after 48 hours Assessment and Plan (1) Colitis Narrative/Plan: This is a 64-year-old -[place] female with a medical history significant for hypertension, hyperlipidemia, prior CVA who presented to the hospital with severe abdominal pain. She reports progressive lower abdominal pain in the right and left lower quadrant of the abdomen. She denies any change in bowel habits or blood per rectum. Last colonoscopy in 2017 and significant for diverticulosis otherwise normal. Amylase and lipase were normal on admission. Liver enzymes within normal limits. Hemoglobin was stable. Computed tomography scan of the abdomen performed an evaluation showed severe right colonic wall thickening with adjacent lymphadenopathy with differential including colonic neoplasm, colitis or other etiology. She is status post colonoscopy with findings that includes moderate to severe right-sided colitis, multiple biopsies taken to rule out underlying neoplasm, however suspicion is for ischemic etiology. Diminutive descending colon polyp removed with cold forceps. Today patient is stating she is feeling much better, abdominal pain is imp roving. She is not having any blood per rectum or bloody stools. Current Visit: Yes Status: Acute Code(s): K52.9 - NONINFECTIVE GASTROENTERITIS AND COLITIS, UNSPECIFIED SNOMED Code(s): 94929201 (2) Abnormal computed tomography scan Current Visit: Yes Status: Acute Code(s): R93.89 - ABNORMAL FINDINGS ON DX IMAGING OF OTH BODY STRUCTURES SNOMED Code(s): 687280640 Plan: Supportive care Repeat CBC Okay to advance to low fiber diet Patient is status post colonoscopy Continue IV antibiotics Patient will need follow-up with gastroenterology for biopsy results Thank you for this consultation Dr. Crawley I agree with the dictator's note, documented as a scribe by Sallie Holbrook.
[2020-05-27] MEDS: HYDROmorphone 1 MG/ML 1 ML SYRINGE IVP PRN (17:03)
[2020-05-27] MEDS: LEVOFLOXACIN 750MG-D5W PMX 750 MG in DEXTROSE/WATER 1 150ML.BAG IVPB SCH (18:06)
[2020-05-27] MEDS: ATORVASTATIN 80 MG TAB PO SCH (20:27)
[2020-05-28] MEDS: HYDROmorphone 1 MG/ML 1 ML SYRINGE IVP PRN (04:48)
[2020-05-28] MEDS: TIMOLOL RIGHT EYE SCH (07:30)
[2020-05-28] MEDS: DORZOLAMIDE RIGHT EYE SCH (07:30)
[2020-05-28] MEDS: HEPARIN SODIUM,PORCINE 5,000 UNIT/ML 1 ML VIAL SQ SCH (07:31)
[2020-05-28] MEDS: metroNIDAZOLE-NS PMX 500 MG in SALINE 1 100ML.BAG IVPB SCH (07:31)
[2020-05-28] MEDS: PANTOPRAZOLE 40 MG/10 ML VIAL IV SCH (07:31)
[2020-05-28] MEDS: METOPROLOL TARTRATE 25 MG TAB PO SCH (07:32)
[2020-05-28] MEDS: SODIUM CHLORIDE 0.9% 1,000 ML IV SCH (07:32)
[2020-05-28 07:44] VITALS: BP 123/70; PULSE 59
[2020-05-28 07:51] VITALS: RESP 16; TEMP 98.1
--- NOTE | 2020-05-28 14:02 | P.PN ---
Subjective Progress Note Date: 05/28/20 Principal diagnosis: Colitis, abnormal computed tomography scan abdomen Patient is seen sitting bedside. Tolerating diet. Abdominal pain still present but improved. Objective - Vital Signs Vital signs: Vital Signs Temp 98.1 F 05/28/20 07:50 Pulse 59 L 05/28/20 07:50 Resp 16 05/28/20 07:50 BP 123/70 05/28/20 07:50 Pulse Ox 97 05/28/20 07:50 Intake & Output 05/27/20 05/28/20 05/28/20 18:59 06:59 18:59 Intake Total 100 125 Balance 100 125 Intake: Intake, IV Titration 100 Amount metroNIDAZOLE-NS PMX 500 100 mg In Saline 1 100ml.bag @ 100 mls/hr IVPB Q8HR [facility] Rx#:[id number] Oral 125 Other: Voiding Method Toilet Toilet # Voids 4 2 # Bowel Movements 3 - Exam On physical examination, patient appears comfortable in no apparent distress. HEAD: Normocephalic, atraumatic. EYES: No scleral icterus. No conjunctival injection. MOUTH: No lesions, tongue midline. NECK: Trachea midline, no gross abnormalities. . ABDOMEN: Soft, mildly tender to palpation. Bowel sounds are positive. No organomegaly. No guarding or rigidity. EXTREMITIES: No pedal edema. SKIN: No rashes, no jaundice. NEUROLOGIC: Alert and oriented x3. No focal deficits. - Labs CBC & Chem 7: 05/26/20 09:09 05/26/20 09:09 Labs: Microbiology - Last 24 Hours (Table) 05/24/20 15:31 Blood Culture - Preliminary Blood No Growth after 72 hours Assessment and Plan (1) Colitis Narrative/Plan: 64-year-old female with a medical history significant for hypertension, hyperlipidemia, prior CVA who presented to the hospital visit abdominal pain. She reports progressive lower abdominal pain in the right and left lower quadrant of the abdomen. She denies any change in bowel habits or blood per rectum. Last colonoscopy in 2017 and significant for diverticulosis and otherwise normal. Amylase and lipase normal. Liver enzymes within normal limits. Computed tomography scan of the abdomen performed in evaluation showed severe right colonic wall thickening with adjacent lymphadenopathy with differential including colonic neoplasm, colitis or other etiology. Colonoscopy performed with findings of moderate to severe right-sided colitis with biopsies taken and suspicion for ischemic colitis. Diminutive polyp also removed. Today patient is feeling much better tolerating diet with no further GI bleeding, still reporting some abdominal pain. Current Visit: Yes Status: Acute Code(s): K52.9 - NONINFECTIVE GASTROENTERITIS AND COLITIS, UNSPECIFIED SNOMED Code(s): 27119378 (2) Abnormal computed tomography scan Current Visit: Yes Status: Acute Code(s): R93.89 - ABNORMAL FINDINGS ON DX IMAGING OF OTH BODY STRUCTURES SNOMED Code(s): 244957502 Plan: Supportive care Okay for low fiber, low residual diet Continue broad-spectrum antibiotic therapy for suspected colitis Await pathology from biopsies of the colon Follow-up in the GI clinic 1-2 weeks after discharge to review biopsy results and for continued monitoring Okay for discharge when otherwise medically stable Thank you for allowing us to participate in the care of the patient, the GI service will stand by, please call us with any questions or concerns
[2020-05-29] MEDS ORDERED: PANTOPRAZOLE 40 MG TABLET PO SCH (09:00)
== END 2020-05-28 14:20 | disposition home or self-care (01) | DRG 394 ==
LOC: EC 14:57 → 5NMEDONC 15:55 → OBSVTOIN 05-26 15:21
PROVIDERS: ADMIT Internal Medicine; ATTEND Internal Medicine
PROC: 0DBM8ZZ Excision of Descending Colon, Via Natural or Artificial Opening Endoscopic (ICD-10-PCS; 2020-05-26)
PROC: 0DBK8ZX Excision of Ascending Colon, Via Natural or Artificial Opening Endoscopic, Diagnostic (ICD-10-PCS; principal; 2020-05-26 11:45)
DX: K55.039 Acute (reversible) ischemia of large intestine, extent unspecified (principal); K63.3 Ulcer of intestine; M19.90 Unspecified osteoarthritis, unspecified site; E78.5 Hyperlipidemia, unspecified; I10 Essential (primary) hypertension; E66.9 Obesity, unspecified; R59.1 Generalized enlarged lymph nodes; K80.20 Calculus of gallbladder without cholecystitis without obstruction; K63.5 Polyp of colon; E73.9 Lactose intolerance, unspecified; Z68.29 Body mass index [BMI] 29.0-29.9, adult; Z79.82 Long term (current) use of aspirin; Z79.02 Long term (current) use of antithrombotics/antiplatelets; Z79.899 Other long term (current) drug therapy; Z86.73 Personal history of transient ischemic attack (TIA), and cerebral infarction without residual deficits; Z98.890 Other specified postprocedural states; Z90.710 Acquired absence of both cervix and uterus; Z98.41 Cataract extraction status, right eye; Z87.891 Personal history of nicotine dependence; Z88.0 Allergy status to penicillin; Z80.0 Family history of malignant neoplasm of digestive organs
CPT/HCPCS: 36415; 45380; 74177; 76705; 80048; 80053; 81003; 82150; 83605; 83690; 85025; 85027; 87040; 88305; 96365; 96366; 96375; 99285

== ENCOUNTER 2020-11-03 | Inpatient (IN) | payer MEDICARE, BC | END 2020-11-09 15:20 | disposition home or self-care (01) | DRG 871 | PROVIDERS: ADMIT Hospitalist | PROC: 05HC33Z Insertion of Infusion Device into Left Basilic Vein, Percutaneous Approach (ICD-10-PCS; principal; 2020-11-08) | CPT/HCPCS: 36410; 36415; 74177; 76937; 80048; 80053; 80074; 81001; 83605; 83735; 85025; 85027; 86140; 87045; 87046; 87086; 87324; 87635; 96361; 96365; 96366; 96375; 99285 ==

== ENCOUNTER → 2022-08-24 | Outpatient (CLI) | payer MEDICARE ==
--- NOTE | 2022-08-24 10:02 | US ---
EXAMINATION TYPE: US pelvic limited DATE OF EXAM: 08/24/2022 COMPARISON: NONE CLINICAL HISTORY: R19.00 INTRA-ABD AND PELVIC SWELLING, MASS AND LUM. total hysterectomy 2006, fullne ss felt during pelvic exam, patient unsure which side and has zero symptoms herself TECHNIQUE: TA. Transabdominal sonographic images of the pelvis were acquired. patient states she felt full, bladder was not fully distended Date of LMP: 2006 EXAM MEASUREMENTS: Uterus: Surgically absent Endometrial Stripe: Surgically absent Right Ovary: Surgically absent Left Ovary: Surgically absent 1. Uterus: Surgically absent 2. Endometrium: Surgically absent 3. Right Ovary: Surgically absent 4. Left Ovary: Surgically absent. 5. Bilateral Adnexa: wnl 6. Posterior cul-de-sac: wnl no focal abnormality to account for fullness felt during pelvic exam IMPRESSION: No organizing fluid collection or mass.
== END | disposition home or self-care (01) ==
LOC: RADUSWWP 09:07
PROVIDERS: ATTEND Obstetrics & Gynecology
DX: R19.09 Other intra-abdominal and pelvic swelling, mass and lump (principal)
CPT/HCPCS: 76857

== ENCOUNTER → 2022-08-31 | Outpatient (CLI) | payer MEDICARE ==
--- NOTE | 2022-08-31 16:06 | BD ---
EXAMINATION TYPE: Axial Bone Density DATE OF EXAM: 08/31/2022 CLINICAL HISTORY: 67 years old Female. ICD-10 CODE: Z1382 SCREENING Height: 63" Weight: 165lbs FRAX RISK QUESTIONS: Alcohol (3 or more units per day): No Family History (Parent hip fracture): No Glucocorticoids (More than 3mos): No (Ex: prednisone, prednisolone, methylprednisolone, dexamethasone, and hydrocortisone). History of Fracture in Adulthood: No Secondary Osteoporosis: 1. Type 1 Diabetes: No 2. Hyperthyroidism: No 3. Menopause before 45: Possibly 4. Malnutrition: No 5. Chronic liver disease: No Rheumatoid Arthritis: No Current Tobacco Use: No RISK FACTORS HISTORY OF: Hip Fracture (Right/Left): No Spine Fracture: No History of Wrist Fracture: No Surgery to Spine/Hip(right/left)/Wrist (right/left): No Family History of Osteoporosis: No Active: Yes Diet low in dairy products/other sources of calcium: No Postmenopausal woman: Yes Lost more than 2 inches in height since high school: No Frequent falls: No Poor Health: No Hyperparathyroidism: No Adrenal Insufficiency: No MEDICATIONS: Prednisone or other steroids: No Thyroid Medications: No Osteoporosis Medications: No Additional Medications: Blood pressure meds, cholesterol, Vitamin D, Calcium, Vit B12, blood thinner, tramadol, narco for back Additional History: None EXAM MEASUREMENTS: Bone mineral densitometry was performed using the [employer] System. Bone mineral density as measured about the Lumbar spine is: ----- L1-L4(G/cm2): 1.418 T Score Values are as follows: ----- L1: 0.8 ----- L2: 1.8 ----- L3: 3.1 ----- L4: 1.9 ----- L1-L4: 2.0 Z Score Values are as follows: ----- L1: 1.4 ----- L2: 2.4 ----- L3: 3.7 ----- L4: 2.5 ----- L1-L4: 2.5 Baseline Bone mineral density about the R hip (g/cm2): 1.148 Bone mineral density about the L hip (g/cm2): 1 T Score values are as follows: -----R Neck: 0.1 -----L Neck: -0.1 -----R Total: 1.1 -----L Total: 0.6 Z Score values are as follows: -----R Neck: 0.0 -----L Neck: 0.5 -----R Total: 0.4 -----L Total: 0.2 Baseline FRAX%s: The graph provided illustrates a 2.9% chance for a major osteoporotic fx and a 0.1% chance fo r the hips probability for fx in 10 years time. IMPRESSION: Normal (Values between +1 and -1 indicate normal bone mass). Consider repeating this study in 5 year s or sooner if there is some new clinical indication. NOTE: T-SCORE=SD OF THE YOUNG ADULT MEAN.
--- NOTE | 2022-09-03 08:37 | MM ---
Reason for Exam: Screening (asymptomatic). Last mammogram was performed 9 year(s) and 5 month(s) ago. Patient History: Menarche at age 13. First Full-Term at age 23. Left ovary removed at age 49. Right ovary removed at age 49. Hysterectomy at age 49. Postmenopausal. Estrogen for 1 year, 8 months, from age 54 until age 56. Hormonal Contraceptives for 8 years from age 22 until age 49. Paternal grandmother had breast cancer, age 92. Risk Values: Mildred 5 year model risk: 1.7%. NCI Lifetime model risk: 6.0%. Prior Study Comparison: 08/29/2011 Left Diagnostic Mammogram, [facility]. 03/12/2012 Bilateral Diagnostic Mammogram, [facility]. 03/24/2013 Bilateral Screening Mammogram, [facility]. Tissue Density: The breast tissue is heterogeneously dense. This may lower the sensitivity of mammography. Findings: Analyzed By CAD. There is no suspicious group of microcalcifications or new suspicious mass in either breast. Overall Assessment: Negative, BI-RAD 1 Management: Screening Mammogram of both breasts in 1 year. A clinical breast exam by your physician is recommended on an annual basis and results should be correlated with mammographic findings. [facility] will attempt to contact patient to return for supplemental views and ultrasound if indicated. Electronically signed and approved by: Mathew Chambers DO
== END | disposition home or self-care (01) ==
LOC: RADMAMWWP 10:01
PROVIDERS: ATTEND Obstetrics & Gynecology
DX: Z12.31 Encounter for screening mammogram for malignant neoplasm of breast (principal); Z13.820 Encounter for screening for osteoporosis; Z78.0 Asymptomatic menopausal state
CPT/HCPCS: 77063; 77067; 77080

== ENCOUNTER 2023-04-07 02:12 | Inpatient (IN) | payer MEDICARE ==
[2023-04-07 03:24] LABS: Basophils % (A) 0 %; Eosinophils # (A) 0.3 k/uL (0-0.7); Eosinophils % (A) 2 %; HGB 12.6 gm/dL (11.4-16.0); Hypochromasia Slight; Lymphocytes # (A) 2.8 k/uL (1.0-4.8); Lymphocytes % (A) 19 %; MCH 30.7 pg (25.0-35.0); MCHC 32.4 g/dL (31.0-37.0); MCV 94.8 fL (80.0-100.0); Mean Platelet Volume 9.5; Monocytes # (A) 0.7 k/uL (0-1.0); Monocytes % (A) 5 %; Neutrophils # (A) 10.4 k/uL (1.3-7.7); Neutrophils % (A) 72 %; Platelet Count 227 k/uL (150-450); RBC 4.12 m/uL (3.80-5.40); RDW 12.7 % (11.5-15.5); WBC 14.5 k/uL (3.8-10.6)
--- NOTE | 2023-04-07 03:31 | ED ---
Chest Pain HPI - General Chief Complaint: Chest Pain Stated Complaint: Chest Pain Time Seen by Provider: 04/07/23 02:21 Source: patient Mode of arrival: wheelchair Limitations: no limitations - History of Present Illness Initial Comments: Patient is a pleasant 67-year-old female who presents the ER today for epigastric and retrosternal chest pain. Patient reports she ate some dinner she had some BMs, she laid down in bed and woke up with pressure and nausea. No diaphoresis lightheadedness or shortness of breath. No recent illness no vomiting or diarrhea prior to arrival. No history of gallbladder pathology or pancreatitis. No significant cardiac history. - Related Data Home Medications Medication Instructions Recorded Confirmed Aspirin 81 mg PO DAILY 10/10/14 11/03/20 Clopidogrel [Plavix] 75 mg PO DAILY 10/10/14 11/03/20 Ibuprofen [Motrin] 800 mg PO TID PRN 10/10/14 11/03/20 fentaNYL 100MCG/HR PATCH 100 mcg TRANSDERM Q48H 10/10/14 11/03/20 [Duragesic 100MCG/HR] traMADol HCl [Ultram] 50 - 100 mg PO Q6H PRN 10/10/14 11/03/20 Ascorbic Acid [Vitamin C] 500 unit PO DAILY 09/26/16 11/03/20 HYDROcodone/APAP 10-325MG [Kimball 1 tab PO Q8H PRN 09/26/16 11/03/20 10-325] Atorvastatin [Lipitor] 40 mg PO HS 03/18/20 11/03/20 Dorzolamide/Timolol/Pf [Cosopt Pf 1 drop RIGHT EYE BID 03/18/20 11/03/20 2%/0.5% Ophth Droperette] Ergocalciferol [Vitamin D2 50,000 unit PO QMONTHLY 03/18/20 11/03/20 (DRISDOL)] Famotidine [Pepcid] 20 mg PO BID PRN 03/18/20 11/03/20 Ferrous Sulfate [Iron (65 MG 325 mg PO DAILY 03/18/20 11/03/20 Elemental)] Metoprolol Tartrate [Lopressor] 12.5 mg PO BID 03/18/20 11/03/20 Multivitamins, Thera [Multivitamin 1 tab PO DAILY 03/18/20 11/03/20 (formulary)] NIFEdipine XL [Procardia XL] 60 mg PO DAILY 03/24/20 11/03/20 Biotin 5 mg PO DAILY 05/24/20 11/03/20 Cetirizine HCl 10 mg PO DAILY 05/24/20 11/03/20 Melatonin 3 mg PO HS 05/24/20 11/03/20 Warriormine-3 Fatty Acids [Warriormine-3] 1,000 mg PO DAILY 05/24/20 11/03/20 Vitamin B Complex 1 cap PO DAILY 05/24/20 11/03/20 ondansetron HCL [Zofran] 4 mg PO Q8H PRN 11/03/20 11/03/20 Previous Rx's Medication Instructions Recorded Cholestyramine (with Sugar) 4 gm PO BID@1000,2200 PRN #20 11/09/20 [Questran Packet] packet Fluconazole [Diflucan] 200 mg PO DAILY 7 Days #7 tab 11/09/20 Potassium Chloride ER [K-Dur 20] 20 meq PO DAILY 30 Days #30 tab 11/09/20 cefUROXime axetiL [Ceftin] 500 mg PO BID 7 Days #14 tab 11/09/20 Allergies Allergy/AdvReac Type Severity Reaction Status Date / Time Penicillins Allergy Rash/Hives Verified 11/03/20 07:49 Review of Systems ROS Statement: Those systems with pertinent positive or pertinent negative responses have been documented in the HPI. ROS Other: All systems not noted in ROS Statement are negative. EKG Findings - EKG Comments: EKG Findings:: EKG interpreted by me EKG obtained at 226 exam rate is 47 rhythm is sinus bradycardia, [place] 173 QRS [address]Tc [address] elevations or depressions no evidence of acute ischemia or infarction. Past Medical History Past Medical History: CVA/TIA, Hyperlipidemia, Hypertension, Osteoarthritis (OA) Additional Past Medical History / Comment(s): PATIENT STATES SHE WAS TOLD SHE HAD A "STROKE" THAT IS WHY SHE TAKES PLAVIX, "SLIGHT HEART MURMER", History of Any Multi-Drug Resistant Organisms: None Reported Past Surgical History: Bladder Surgery, Hysterectomy, Orthopedic Surgery Additional Past Surgical History / Comment(s): dona KNEE ARTHROSCOPY, dona carpal tunnel. bladder suspension, rt cataract Past Anesthesia/Blood Transfusion Reactions: No Reported Reaction Past Psychological History: No Psychological Hx Reported Smoking Status: Former smoker Past Alcohol Use History: None Reported Past Drug Use History: None Reported - Past Family History Mother Family Medical History: Cancer Father Family Medical History: Cancer Sister(s) Family Medical History: Cancer Additional Family Medical History / Comment(s): rectal General Exam Limitations: no limitations General appearance: alert, in no apparent distress Head exam: Present: atraumatic, normocephalic ENT exam: Present: normal exam Respiratory exam: Present: normal lung sounds bilaterally. Absent: respiratory distress, wheezes, rales Cardiovascular Exam: Present: regular rate, normal rhythm GI/Abdominal exam: Present: soft, tenderness, normal bowel sounds. Absent: guarding, rebound, rigid Rectal exam: Present: deferred Extremities exam: Present: normal inspection Neurological exam: Present: alert, oriented X3 Psychiatric exam: Present: normal affect, normal mood Skin exam: Present: warm, dry Course Vital Signs 04/07/23 04/07/23 02:17 04:32 Temperature 98.2 F Pulse Rate 66 59 L Respiratory 18 16 Rate Blood Pressure 138/64 123/64 O2 Sat by Pulse 98 97 Oximetry Chest Pain MDM - MDM Was pt. sent in by a medical professional or institution (, PA, BRANCH STORE MANAGER, urgent care, hospital, or jail...) When possible be specific @ -No Did you speak to anyone other than the patient for history (EMS, parent, family, police, friend...)? What history was obtained from this source @ - at bedside Did you review nursing and triage notes (agree or disagree)? Why? @ -I reviewed and agree with nursing and triage notes Were old charts reviewed (outside hosp., previous admission, EMS record, old EKG, old radiological studies, urgent care reports/EKG's, jail records)? Report findings @ -Is labs reviewed Differential Diagnosis (chest pain, altered mental status, abdominal pain women, abdominal pain men, vaginal bleeding, weakness, fever, dyspnea, syncope, headache, dizziness, GI bleed, back pain, seizure, CVA, palpatations, mental health)? @ -Differential Abdominal Pain Women: Appendicitis, Cholecystitis, diverticulosis, ischemic bowel, pancreatitis, hepatitis, UTI, gastroenteritis, AAA, incarcerated hernia, bowel obstruction, constipation, inflammatory bowel, hepatitis, peptic ulcer disease, splenic infarction, perforated viscus, vulvitis, ovarian torsion, PID, kidney stone, placenta abruption, this is not meant to be an all-inclusive list EKG interpreted by me (3pts min.). @ -As above X-rays interpreted by me (1pt min.). @ -No pneumothorax or pneumonia CT interpreted by me (1pt min.). @ -None done U/S interpreted by me (1pt. min.). @ -None done What testing was considered but not performed or refused? (CT, X-rays, U/S, labs)? Why? @ -None What meds were considered but not given or refused? Why? @ -Pain meds declined as the patient was comfortable Did you discuss the management of the patient with other professionals (professionals i.e. , PA, BRANCH STORE MANAGER, lab, RT, psych nurse, hospital social worker, support services tech, teacher, field artillery officer, top case assembler)? Give summary @ -Admitting team Was smoking cessation discussed for >3mins.? @ -No Was critical care preformed (if so, how long)? @ -No Were there social determinants of health that impacted care today? How? (Homelessness, low income, unemployed, alcoholism, drug addiction, transportation, low edu. Level, literacy, decrease access to med. care, usp, rehab)? @ -No Was there de-escalation of care discussed even if they declined (Discuss DNR or withdrawal of care, Hospice)? DNR status @ -No What co-morbidities impacted this encounter? (DM, HTN, Smoking, COPD, CAD, Cancer, CVA, ARF, Chemo, Hep., AIDS, mental health diagnosis, sleep apnea, morbid obesity)? @ -None Was patient admitted / discharged? Hospital course, mention meds given and rout e, prescriptions, significant lab abnormalities, going to OR and other pertinent info. @ -Admit Patient was seen and evaluated, history was obtained from the patient. Patient reports waking with pressure-like epigastric and retrosternal discomfort. Initial EKG was nonischemic. Patient was taken to x-ray and upon return to the room she had large volume emesis and reported feeling much better. Patient slept through the remainder of her stay in the emergency department. Cardiac workup was negative however lipase was significantly elevated. Given that the patient likely has acute pancreatitis I recommended admission to the hospital for IV fluid hydration, nothing by mouth diet and imaging. Patient was agreeable to this plan. Patient to be admitted to the [facility] hospitalist group. Undiagnosed new problem with uncertain prognosis? @ -No Drug Therapy requiring intensive monitoring for toxicity (Heparin, Nitro, Insulin, Cardizem)? @ -No Were any procedures done? @ -No Diagnosis/symptom? @ -Acute pancreatitis Acute, or Chronic, or Acute on Chronic? @ -Acute Uncomplicated (without systemic symptoms) or Complicated (systemic symptoms)? @ -default Side effects of treatment? @ -No Exacerbation, Progression, or Severe Exacerbation? @ -No Poses a threat to life or bodily function? How? (Chest pain, USA, MD, pneumonia, PE, COPD, DKA, ARF, appy, cholecystitis, CVA, Diverticulitis, Homicidal, Suicidal, threat to staff... and all critical care pts) @ -Yes Disposition Clinical Impression: Acute pancreatitis Disposition: ADMITTED IP TO THIS [facility] Condition: Serious Instructions (If sedation given, give patient instructions): Abdominal Pain (ED) Is patient prescribed a controlled substance at d/c from ED?: No Referrals: Bernadette Gonzales [Primary Care Provider] - 1-2 days
[2023-04-07 03:33] LABS: INR 0.9 (<1.2); Partial Thromboplastin Time 23.2 sec (22.0-30.0); Prothrombin Time 10.3 sec (10.0-12.5)
[2023-04-07 03:41] LABS: ALT 33 U/L (4-34); AST 43 U/L (14-36); African American GFR (CKD) >90 (>60 ml/min/1.73 sqM); Albumin 4.4 g/dL (3.5-5.0); Alkaline Phosphatase 72 U/L (38-126); Anion Gap 12 mmol/L; Blood Urea Nitrogen 13 mg/dL (7-17); Calcium 9.4 mg/dL (8.4-10.2); Carbon Dioxide 23 mmol/L (22-30); Chloride 106 mmol/L (98-107); Glucose 80 mg/dL (74-99); Magnesium 2.1 mg/dL (1.6-2.3); Non-African American GFR(CKD) 80 (>60 ml/min/1.73 sqM); Potassium 4.1 mmol/L (3.5-5.1); Sodium 141 mmol/L (137-145); Total Bilirubin 0.3 mg/dL (0.2-1.3); Total Protein 7.6 g/dL (6.3-8.2)
[2023-04-07 03:48] LABS: NT-Pro-B-Type Natriuretic Pept 64 pg/mL
--- NOTE | 2023-04-07 03:50 | XR ---
EXAM: XR Chest, 2 Views CLINICAL HISTORY: Chest Pain TECHNIQUE: Frontal and lateral views of the chest. COMPARISON: July 19, 2011 FINDINGS: Lungs: Unremarkable. No infiltration, atelectasis or mass density. Pleural space: Unremarkable. No pneumothorax. No pleural fluid. Heart: Unremarkable. No cardiomegaly. Mediastinum: Unremarkable. Normal mediastinal contour. Bones/joints: Unremarkable. No acute abnormalities. IMPRESSION: Negative chest x-rays.
[2023-04-07] MEDS ORDERED: ONDANSETRON 4 MG/2 ML VIAL IVP STA (03:51)
[2023-04-07] MEDS ORDERED: SODIUM CHLORIDE 0.9% 1,000 ML IV ONE (06:20)
[2023-04-07] MEDS: SODIUM CHLORIDE 0.9% 1,000 ML IV SCH ×3 (06:38→17:48)
[2023-04-07] MEDS ORDERED: NALOXONE 0.4 MG/ML 1 ML VIAL IV PRN ×2 (07:01→08:46)
--- NOTE | 2023-04-07 08:38 | CT ---
EXAM: CT Abdomen and Pelvis With Intravenous Contrast CLINICAL HISTORY: ITS.REASON CT Reason: pancreatitis TECHNIQUE: Axial computed tomography images of the abdomen and pelvis with intravenous contrast. CTDI is 19.77 mGy and DLP is 838.6 mGy-cm. This CT exam was performed using one or more of the following dose reduction techniques: automated exposure control, adjustment of the mA and/or kV according to patient size, and/or use of iterative reconstruction technique. COMPARISON: 11/02/2020 FINDINGS: Lung bases: Mild chronic bibasilar groundglass opacities. Calcified granulomas right lower lobe. Pleural space: Pleural calcifications along the left hemidiaphragm. ABDOMEN: Liver: No acute findings. No mass. Gallbladder and bile ducts: There is an unchanged 9 mm stone versus polyp in the gallbladder neck. There is some mild gallbladder distention and gallbladder wall thickening. No ductal dilation. Pancreas: Unremarkable. No mass. No ductal dilation. Spleen: Calcified splenic granulomas. Adrenals: Unremarkable. No mass. Kidneys and ureters: There is some mild bilateral renal cortical thinning. No hydronephrosis. Stomach and bowel: Colonic diverticulosis. No obstruction. No mucosal thickening. PELVIS: Appendix: No findings to suggest acute appendicitis. Bladder: Unremarkable. No mass. Reproductive: Hysterectomy. ABDOMEN and PELVIS: Intraperitoneal space: Unremarkable. No free air. No significant fluid collection. Bones/joints: No acute fracture. No dislocation. Soft tissues: Small umbilical hernia containing fat. Vasculature: Calcified plaque abdominal aorta and iliac arteries. No abdominal aortic aneurysm. Lymph nodes: Unremarkable. No enlarged lymph nodes. IMPRESSION: 1. There is an unchanged 9 mm stone versus polyp in the gallbladder neck. There is some mild gallbladder distention and gallbladder wall thickening. Acute cholecystitis in the differential. Ultrasound could be done for further evaluation. 2. Colonic diverticulosis.
[2023-04-07] MEDS ORDERED: ACETAMINOPHEN TAB 325 MG TAB PO PRN (08:46)
[2023-04-07] MEDS ORDERED: CALCIUM CARBONATE 500 MG CHEWABLE PO PRN (08:46)
[2023-04-07] MEDS ORDERED: HYDROcodone/APAP 5-325MG 1 EACH TAB PO PRN (08:46)
[2023-04-07] MEDS ORDERED: MAG HYDROX/AL HYDROX/SIMETH 30 ML CUP PO PRN (08:46)
[2023-04-07] MEDS: PANTOPRAZOLE 40 MG/10 ML VIAL IVP SCH (10:00)
--- NOTE | 2023-04-07 10:11 | US ---
EXAMINATION TYPE: US abdomen limited DATE OF EXAM: 04/07/2023 COMPARISON: NONE CLINICAL INDICATION: Female, 67 years old with history of Abdominal pain, elevated LFTs; pain, elevat ed labs TECHNIQUE: Multiple sonographic images of the right upper quadrant are obtained. FINDINGS: EXAM MEASUREMENTS: Liver Length: 17.6 cm Gallbladder Wall: 0.2 cm CBD: 0.7 cm Right Kidney: 9.5 x 4.3 x 3.8 cm Pancreas: wnl Liver: wnl Gallbladder: 11.0 x 4.7cm, possible hydropic, fundal stones noted with normal wall thickness Evidence for sonographic Alan's sign: yes CBD: wnl Right Kidney: wnl IMPRESSION: Prominent gallbladder with cholelithiasis and positive sonographic Alan sign. These findings are co ncerning for acute cholecystitis.
--- NOTE | 2023-04-07 11:45 | P.GSCN ---
History of Present Illness Consult date: 04/07/23 Reason for Consult: gallstone pancreatitis History of present illness: this a 67-year-old female who's [facility], [place] complaints of abdominal pain. Patient noted to have elevated amylase lipase and gallstones. Patient states she has a known history of gallstones. Past Medical History Past Medical History: CVA/TIA, Hyperlipidemia, Hypertension, Osteoarthritis (OA) Additional Past Medical History / Comment(s): PATIENT STATES SHE WAS TOLD SHE HAD A "STROKE" THAT IS WHY SHE TAKES PLAVIX, "SLIGHT HEART MURMER", History of Any Multi-Drug Resistant Organisms: None Reported Past Surgical History: Bladder Surgery, Hysterectomy, Orthopedic Surgery Additional Past Surgical History / Comment(s): dona KNEE ARTHROSCOPY, dona carpal tunnel. bladder suspension, rt cataract Past Anesthesia/Blood Transfusion Reactions: No Reported Reaction Past Psychological History: No Psychological Hx Reported Smoking Status: Former smoker Past Alcohol Use History: None Reported Past Drug Use History: None Reported - Past Family History Mother Family Medical History: Cancer Father Family Medical History: Cancer Sister(s) Family Medical History: Cancer Additional Family Medical History / Comment(s): rectal Medications and Allergies Home Medications Medication Instructions Recorded Confirmed Type fentaNYL 100MCG/HR PATCH 100 mcg TRANSDERM Q48H 10/10/14 04/07/23 History [Duragesic 100MCG/HR] HYDROcodone/APAP 10-325MG [Kila 1 tab PO TID 09/26/16 04/07/23 History 10-325] Atorvastatin [Lipitor] 80 mg PO HS 03/18/20 04/07/23 History Dorzolamide/Timolol/Pf [Cosopt Pf 1 drop RIGHT EYE BID 03/18/20 04/07/23 History 2%/0.5% Ophth Droperette] Metoprolol Tartrate [Lopressor] 12.5 mg PO BID 03/18/20 04/07/23 History Multivitamins, Thera [Multivitamin 1 tab PO DAILY 03/18/20 04/07/23 History (formulary)] NIFEdipine XL [Procardia XL] 60 mg PO DAILY 03/24/20 04/07/23 History Ibuprofen [Motrin] 800 mg PO Q8H PRN 04/07/23 04/07/23 History Magnesium Oxide [Magox 400] 400 mg PO DAILY 04/07/23 04/07/23 History hydroCHLOROthiazide [Hydrodiuril] 25 mg PO Q48H 04/07/23 04/07/23 History Allergies Allergy/AdvReac Type Severity Reaction Status Date / Time Penicillins Allergy Rash/Hives Verified 04/07/23 11:20 Surgical - Exam Vital Signs Temp Pulse Resp BP Pulse Ox 98.2 F 66 18 138/64 98 04/07/23 02:17 04/07/23 02:17 04/07/23 02:17 04/07/23 02:17 04/07/23 02:17 - General well developed, well nourished, no distress - Eyes PERRL - ENT normal pinna, normal nares - Neck no masses - Respiratory normal expansion - Cardiovascular Rhythm: regular - Abdomen mild right quadrant tenderness Abdomen: soft Results - Labs 04/07/23 02:34 04/07/23 02:34 Abnormal Lab Results - Last 24 Hours (Table) 04/07/23 04/07/23 04/07/23 Range/Units 02:34 02:34 02:34 WBC 14.5 H (3.8-10.6) k/uL Neutrophils # 10.4 H (1.3-7.7) k/uL AST 43 H (14-36) U/L Lipase 6430 H (23-300) U/L Diabetes panel 04/07/23 Range/Units 02:34 Sodium 141 (137-145) mmol/L Potassium 4.1 (3.5-5.1) mmol/L Chloride 106 (98-107) mmol/L Carbon Dioxide 23 (22-30) mmol/L BUN 13 (7-17) mg/dL Creatinine 0.79 (0.52-1.04) mg/dL Glucose 80 (74-99) mg/dL Calcium 9.4 (8.4-10.2) mg/dL AST 43 H (14-36) U/L ALT 33 (4-34) U/L Alkaline Phosphatase 72 (38-126) U/L Total Protein 7.6 (6.3-8.2) g/dL Albumin 4.4 (3.5-5.0) g/dL Calcium panel 04/07/23 Range/Units 02:34 Calcium 9.4 (8.4-10.2) mg/dL Albumin 4.4 (3.5-5.0) g/dL Pituitary panel 04/07/23 Range/Units 02:34 Sodium 141 (137-145) mmol/L Potassium 4.1 (3.5-5.1) mmol/L Chloride 106 (98-107) mmol/L Carbon Dioxide 23 (22-30) mmol/L BUN 13 (7-17) mg/dL Creatinine 0.79 (0.52-1.04) mg/dL Glucose 80 (74-99) mg/dL Calcium 9.4 (8.4-10.2) mg/dL Adrenal panel 04/07/23 Range/Units 02:34 Sodium 141 (137-145) mmol/L Potassium 4.1 (3.5-5.1) mmol/L Chloride 106 (98-107) mmol/L Carbon Dioxide 23 (22-30) mmol/L BUN 13 (7-17) mg/dL Creatinine 0.79 (0.52-1.04) mg/dL Glucose 80 (74-99) mg/dL Calcium 9.4 (8.4-10.2) mg/dL Total Bilirubin 0.3 (0.2-1.3) mg/dL AST 43 H (14-36) U/L ALT 33 (4-34) U/L Alkaline Phosphatase 72 (38-126) U/L Total Protein 7.6 (6.3-8.2) g/dL Albumin 4.4 (3.5-5.0) g/dL Assessment and Plan Assessment: also because. Patient appears to be clinically improving. We'll plan a laparoscopic cholecystectomy in the a.m.
--- NOTE | 2023-04-07 13:50 | P.HPIM ---
History of Present Illness H&P Date: 04/07/23 History of present illness; patient is 67-year-old lady with past medical histor y significant for hypertension, hyperlipidemia who presented to the hospital for epigastric pain. Patient stated that she was all right last night when after eating dinner she started experiencing discomfort in the epigastric and retrosternal area. Pain was burning in nature, nonradiating, relieved by laying flat. Patient had bowel movement which eased her epigastric pain but later on patient started experiencing nausea and recurrence of pain. There was no complain of any fever or chills. No complain of palpitations. No complain of orthopnea or PND. Patient denies shortness of breath. Because of the symptoms, patient was brought to the ER Initial lab work done in the ER showed WBC 14.5, hemoglobin 12.6, platelet count 27, sodium 141, potassium 4.1, BUN 13, creatinine 0.79, AST 43, ALT 33, troponin 0.012, proBNP 64, lipase 6430 EKG done in the ER showed heart rate of 47, no ST segment elevation, no T-wave inversion seen Chest x-ray done in the ER showed no acute cardiopulmonary process CT abdominal and pelvis done showed unchanged 9 mm stone versus polyp in the gallbladder neck with some mild gallbladder distention gallbladder wall thickening, acute cholecystitis the differential Patient admitted to medicine service REVIEW OF SYSTEMS: CONSTITUTIONAL: No fever, no malaise, no fatigue. HEENT: No recent visual problems or hearing problems. Denied any sore throat. CARDIOVASCULAR: No chest pain, orthopnea, PND, no palpitations, no syncope. PULMONARY: No shortness of breath, no cough, no hemoptysis. GASTROINTESTINAL: As mentioned in HPI NEUROLOGICAL: No headaches, no weakness, no numbness. HEMATOLOGICAL: Denies any bleeding or petechiae. GENITOURINARY: Denies any burning micturition, frequency, or urgency. MUSCULOSKELETAL/RHEUMATOLOGICAL: Denies any joint pain, swelling, or any muscle pain. ENDOCRINE: Denies any polyuria or polydipsia. The rest of the 14-point review of systems is negative. PHYSICAL EXAMINATION: GENERAL: The patient is alert and oriented x3, not in any acute distress. Well developed, well nourished. HEENT: Pupils are round and equally reacting to light. EOMI. No scleral icterus. No conjunctival pallor. Normocephalic, atraumatic. No pharyngeal erythema. No thyromegaly. CARDIOVASCULAR: S1 and S2 present. No murmurs, rubs, or gallops. PULMONARY: Chest is clear to auscultation, no wheezing or crackles. ABDOMEN: Soft, nontender, nondistended, normoactive bowel sounds. No palpable organomegaly. MUSCULOSKELETAL: No joint swelling or deformity. EXTREMITIES: No cyanosis, clubbing, or pedal edema. NEUROLOGICAL: Gross neurological examination did not reveal any focal deficits. SKIN: No rashes. Assessment and plan Acute pancreatitis Cholelithiasis Hyperlipidemia Hypertension History of coronary artery disease Monitor vital signs Monitor CBC Monitor CMP Continue telemetry monitoring Trend troponin Ordered ultrasound abdominal Ordered MRCP Trend LFTs Continue IV fluids continue antiemetics Gen. surgery consulted Labs and medication were reviewed.. Continue same treatment. Continue with symptomatic treatment. Resume home medication. Monitor labs and vitals. DVT and GI prophylaxis. Further recommendations as per clinical course of the patient Dictation was produced using [employer] dictation software. please excuse any grammatical, word or spelling errors. Past Medical History Past Medical History: CVA/TIA, Hyperlipidemia, Hypertension, Osteoarthritis (OA) Additional Past Medical History / Comment(s): PATIENT STATES SHE WAS TOLD SHE HAD A "STROKE" THAT IS WHY SHE TAKES PLAVIX, "SLIGHT HEART MURMER", History of Any Multi-Drug Resistant Organisms: None Reported Past Surgical History: Bladder Surgery, Hysterectomy, Orthopedic Surgery Additional Past Surgical History / Comment(s): dona KNEE ARTHROSCOPY, dona carpal tunnel. bladder suspension, rt cataract Past Anesthesia/Blood Transfusion Reactions: No Reported Reaction Past Psychological History: No Psychological Hx Reported Smoking Status: Former smoker Past Alcohol Use History: None Reported Past Drug Use History: None Reported - Past Family History Mother Family Medical History: Cancer Father Family Medical History: Cancer Sister(s) Family Medical History: Cancer Additional Family Medical History / Comment(s): rectal Medications and Allergies Home Medications Medication Instructions Recorded Confirmed Type Aspirin 81 mg PO DAILY 10/10/14 11/03/20 History Clopidogrel [Plavix] 75 mg PO DAILY 10/10/14 11/03/20 History Ibuprofen [Motrin] 800 mg PO TID PRN 10/10/14 11/03/20 History fentaNYL 100MCG/HR PATCH 100 mcg TRANSDERM Q48H 10/10/14 11/03/20 History [Duragesic 100MCG/HR] traMADol HCl [Ultram] 50 - 100 mg PO Q6H PRN 10/10/14 11/03/20 History Ascorbic Acid [Vitamin C] 500 unit PO DAILY 09/26/16 11/03/20 History HYDROcodone/APAP 10-325MG [Gans 1 tab PO Q8H PRN 09/26/16 11/03/20 History 10-325] Atorvastatin [Lipitor] 40 mg PO HS 03/18/20 11/03/20 History Dorzolamide/Timolol/Pf [Cosopt Pf 1 drop RIGHT EYE BID 03/18/20 11/03/20 History 2%/0.5% Ophth Droperette] Ergocalciferol [Vitamin D2 50,000 unit PO QMONTHLY 03/18/20 11/03/20 History (DRISDOL)] Famotidine [Pepcid] 20 mg PO BID PRN 03/18/20 11/03/20 History Ferrous Sulfate [Iron (65 MG 325 mg PO DAILY 03/18/20 11/03/20 History Elemental)] Metoprolol Tartrate [Lopressor] 12.5 mg PO BID 03/18/20 11/03/20 History Multivitamins, Thera [Multivitamin 1 tab PO DAILY 03/18/20 11/03/20 History (formulary)] NIFEdipine XL [Procardia XL] 60 mg PO DAILY 03/24/20 11/03/20 History Biotin 5 mg PO DAILY 05/24/20 11/03/20 History Cetirizine HCl 10 mg PO DAILY 05/24/20 11/03/20 History Melatonin 3 mg PO HS 05/24/20 11/03/20 History [place]-3 Fatty Acids [[place]-3] 1,000 mg PO DAILY 05/24/20 11/03/20 History Vitamin B Complex 1 cap PO DAILY 05/24/20 11/03/20 History ondansetron HCL [Zofran] 4 mg PO Q8H PRN 11/03/20 11/03/20 History Cholestyramine (with Sugar) 4 gm PO BID@1000,2200 PRN #20 11/09/20 Rx [Questran Packet] packet Fluconazole [Diflucan] 200 mg PO DAILY 7 Days #7 tab 11/09/20 Rx Potassium Chloride ER [K-Dur 20] 20 meq PO DAILY 30 Days #30 tab 11/09/20 Rx cefUROXime axetiL [Ceftin] 500 mg PO BID 7 Days #14 tab 11/09/20 Rx Allergies Allergy/AdvReac Type Severity Reaction Status Date / Time Penicillins Allergy Rash/Hives Verified 11/03/20 07:49 Physical Exam Vitals: Vital Signs Temp Pulse Resp BP Pulse Ox 04/07/23 07:57 87 18 122/71 99 04/07/23 04:32 59 L 16 123/64 97 04/07/23 02:17 98.2 F 66 18 138/64 98 Intake and Output 04/06/23 04/07/23 04/07/23 22:59 06:59 14:59 Other: Weight 72.575 kg Results CBC & Chem 7: 04/07/23 02:34 04/07/23 02:34 Labs: Abnormal Lab Results - Last 24 Hours (Table) 04/07/23 04/07/23 04/07/23 Range/Units 02:34 02:34 02:34 WBC 14.5 H (3.8-10.6) k/uL Neutrophils # 10.4 H (1.3-7.7) k/uL AST 43 H (14-36) U/L Lipase 6430 H (23-300) U/L
[2023-04-07] MEDS: DORZOLAMIDE-TIMOLOL 2.23%/0.68 10ML BTL RIGHT EYE SCH (21:47)
[2023-04-07] MEDS: METOPROLOL TARTRATE 12.5 MG TAB PO SCH (21:47)
[2023-04-08] MEDS: SODIUM CHLORIDE 0.9% 1,000 ML IV SCH ×6 (00:10→23:17)
[2023-04-08] MEDS ORDERED: hydroCHLOROthiazide 25 MG TAB PO SCH (09:00)
[2023-04-08] MEDS: PANTOPRAZOLE 40 MG/10 ML VIAL IVP SCH (09:39)
[2023-04-08] MEDS: MAGNESIUM OXIDE 400 MG TAB PO SCH (09:39)
[2023-04-08] MEDS: MULTIVITAMINS, THERA 1 EACH TAB PO SCH (09:39)
[2023-04-08] MEDS: METOPROLOL TARTRATE 12.5 MG TAB PO SCH ×2 (09:39→20:24)
[2023-04-08] MEDS: DORZOLAMIDE-TIMOLOL 2.23%/0.68 10ML BTL RIGHT EYE SCH ×2 (09:40→20:24)
--- NOTE | 2023-04-08 12:23 | P.PN ---
Subjective Progress Note Date: 04/08/23 CHIEF COMPLAINT: Gallstone pancreatitis HISTORY OF PRESENT ILLNESS: Patient continues to have right upper quadrant pain. She denies any nausea or vomiting. Vital stable. Labs pending PHYSICAL EXAM: VITAL SIGNS: Reviewed. GENERAL: Well-developed in no acute distress. ABDOMEN: Soft. Nondistended. Epigastric and right upper quadrant tenderness with palpation NEUROLOGIC: Alert and oriented. Cranial nerves II through XII grossly intact. ASSESSMENT: 1. Gallstone pancreatitis PLAN: -Patient scheduled for laparoscopic cholecystectomy today with Dr. Spring Physician Tool Crib Clerk note has been reviewed by physician. Signing provider agrees with the documented findings, assessment, and plan of care. Objective - Vital Signs Vital signs: Vital Signs Temp 98.3 F 04/08/23 08:00 Pulse 68 04/08/23 08:00 Resp 14 04/08/23 08:00 BP 158/67 04/08/23 08:00 Pulse Ox 92 L 04/08/23 08:00 FiO2 Intake & Output 04/07/23 04/08/23 04/08/23 18:59 06:59 18:59 Weight 72.575 kg Other: # Voids 2 1 - Labs CBC & Chem 7: 04/07/23 02:34 04/07/23 02:34
--- NOTE | 2023-04-08 12:32 | P.PN ---
Subjective Progress Note Date: 04/08/23 patient is 67-year-old lady with past medical history significant for hypertension, hyperlipidemia who presented to the hospital for epigastric pain. Patient stated that she was all right last night when after eating dinner she started experiencing discomfort in the epigastric and retrosternal area. Pain was burning in nature, nonradiating, relieved by laying flat. Patient had bowel movement which eased her epigastric pain but later on patient started experiencing nausea and recurrence of pain. There was no complain of any fever or chills. No complain of palpitations. No complain of orthopnea or PND. Patient denies shortness of breath. Because of the symptoms, patient was brought to the ER Initial lab work done in the ER showed WBC 14.5, hemoglobin 12.6, platelet count 27, sodium 141, potassium 4.1, BUN 13, creatinine 0.79, AST 43, ALT 33, troponin 0.012, proBNP 64, lipase 6430 EKG done in the ER showed heart rate of 47, no ST segment elevation, no T-wave inversion seen Chest x-ray done in the ER showed no acute cardiopulmonary process CT abdominal and pelvis done showed unchanged 9 mm stone versus polyp in the gallbladder neck with some mild gallbladder distention gallbladder wall thickening, acute cholecystitis the differential Patient admitted to medicine service 04/08. Patient seen and examined. Currently nothing by mouth, going for surgery today. Still have right upper quadrant abdominal pain. Denies any nausea or vomiting REVIEW OF SYSTEMS: CONSTITUTIONAL: No fever, no malaise,. CARDIOVASCULAR: No chest pain, no palpitations, no syncope. PULMONARY: No shortness of breath, no cough, GASTROINTESTINAL: As mentioned above NEUROLOGICAL: No headaches, no weakness, PHYSICAL EXAMINATION: GENERAL: The patient is alert and oriented x3, not in any acute distress. Well developed, well nourished. HEENT: Pupils are round and equally reacting to light. EOMI. No scleral icterus. No conjunctival pallor. Normocephalic, atraumatic. No pharyngeal erythema. No thyromegaly. CARDIOVASCULAR: S1 and S2 present. No murmurs, rubs, or gallops. PULMONARY: Chest is clear to auscultation, no wheezing or crackles. ABDOMEN: Soft, nontender, nondistended, normoactive bowel sounds. No palpable organomegaly. MUSCULOSKELETAL: No joint swelling or deformity. EXTREMITIES: No cyanosis, clubbing, or pedal edema. NEUROLOGICAL: Gross neurological examination did not reveal any focal deficits. SKIN: No rashes. Assessment and plan Acute pancreatitis Cholelithiasis Hyperlipidemia Hypertension History of coronary artery disease Monitor vital signs Monitor CBC Monitor CMP Ordered MRCP Trend LFTs Continue IV fluids continue antiemetics Gen. surgery consulted, planning lap jase today Labs and medication were reviewed.. Continue same treatment. Continue with symptomatic treatment. Resume home medication. Monitor labs and vitals. DVT and GI prophylaxis. Further recommendations as per clinical course of the patient Dictation was produced using [employer] dictation software. please excuse any grammatical, word or spelling errors. Objective - Vital Signs Vital signs: Vital Signs Temp 98.3 F 04/08/23 08:00 Pulse 68 04/08/23 08:00 Resp 14 04/08/23 08:00 BP 158/67 04/08/23 08:00 Pulse Ox 92 L 04/08/23 08:00 FiO2 Intake & Output 04/07/23 04/08/23 04/08/23 18:59 06:59 18:59 Weight 72.575 kg Other: # Voids 2 1 - Labs CBC & Chem 7: 04/07/23 02:34 04/07/23 02:34
[2023-04-08 13:58] LABS: ALT 31 U/L (4-34); African American GFR (CKD) >90 (>60 ml/min/1.73 sqM); Albumin 3.7 g/dL (3.5-5.0); Albumin/Globulin Ratio 1.2; Anion Gap 9 mmol/L; Blood Urea Nitrogen 11 mg/dL (7-17); Calcium 9.2 mg/dL (8.4-10.2); Carbon Dioxide 21 mmol/L (22-30); Chloride 110 mmol/L (98-107); Globulin 3.1 g/dL; Glucose 64 mg/dL (74-99); Lipase 102 U/L (23-300); Non-African American GFR(CKD) 89 (>60 ml/min/1.73 sqM); Sodium 140 mmol/L (137-145); Total Bilirubin 0.8 mg/dL (0.2-1.3); Total Protein 6.8 g/dL (6.3-8.2)
[2023-04-08 13:59] LABS: AST 39 U/L (14-36); Alkaline Phosphatase 80 U/L (38-126); Potassium 4.2 mmol/L (3.5-5.1)
[2023-04-08] MEDS ORDERED: LACTATED RINGERS 1,000 ML IV ONE (15:00)
[2023-04-08 15:01] LABS: Glucose,Whole Blood 41 mg/dL (70-110)
[2023-04-08] MEDS ORDERED: DEXTROSE 50% SYRINGE 50 ML IVP ONE ×2 (15:03→15:23)
[2023-04-08] MEDS: ONDANSETRON 4 MG/2 ML VIAL IVP PRN (15:03)
[2023-04-08] MEDS ORDERED: HEPARIN SODIUM,PORCINE/PF 5,000 UNIT/0.5 ML SYRINGE SQ ONE (15:13)
[2023-04-08 15:28] LABS: Glucose,Whole Blood 74 mg/dL (70-110)
[2023-04-08] MEDS ORDERED: ePHEDrine 50 MG/ML 1 ML VIAL ONE (15:40)
[2023-04-08] MEDS ORDERED: GLYCOPYRROLATE 0.2 MG/ML 2 ML VIAL ONE (15:40)
[2023-04-08] MEDS ORDERED: ROCURONIUM 10 MG/ML (5 ML VIAL) IV ONE (15:40)
[2023-04-08] MEDS ORDERED: PROPOFOL 10 MG/ML 20 ML VIAL IV ONE (15:40)
[2023-04-08] MEDS ORDERED: LIDOCAINE 1% INJ 10MG/ML (20 ML MDV) ONE (15:40)
[2023-04-08] MEDS ORDERED: fentaNYL (PF) 50 MCG/ML 2 ML AMP ONE (15:40)
[2023-04-08] MEDS ORDERED: WATER FOR INJECTION, STERILE 10 ML VIAL IV ONE (15:40)
[2023-04-08] MEDS ORDERED: NEOSTIGMINE 1 MG/ML 10 ML VIAL ONE (15:40)
[2023-04-08] MEDS ORDERED: SUCCINYLCHOLINE CHLORIDE 200 MG/10 ML VIAL IV ONE (15:40)
[2023-04-08] MEDS ORDERED: LIDOCAINE 0.5%-EPI 1:200,000 50 ML VIAL SQ ONE (16:04)
--- NOTE | 2023-04-08 16:30 | P.OP ---
Date of Procedure: 04/08/23 Preoperative Diagnosis: Cholecystitis Postoperative Diagnosis: Cholecystitis Procedure(s) Performed: Laparoscopic cholecystectomy Anesthesia: MARTA Surgeon: Deshawn Spring Estimated Blood Loss (ml): 5 Pathology: other (Gallbladder) Condition: stable Disposition: PACU Description of Procedure: The patient was placed on the operating table. The patient received a general endotracheal tube anesthesia. The patients abdomen was prepped and draped in the usual sterile fashion. Through an infraumbilical stab incision, the fascia of the anterior abdominal wall was grasped with a pair of Kochers and then the Veress needle was placed in the peritoneal cavity. Position of the Veress needle was confirmed with positive drop test. The abdomen was then insufflated. After adequate insufflation, the 10 mm trocar was placed in the peritoneal cavity. Following this the laparoscope was placed in the peritoneal cavity. The patient was placed in the head-up, right side up position and then a 5 mm trocar was placed in the right lateral and right subcostal position under direct visualization. A 8 mm trocar was placed in the epigastric position. The gallbladder was grasped in the fundus and infundibulum. Traction on the gallbladder was placed in the lateral and the cephalad positions. The triangle of Calot was visualized.. The cystic duct was bluntly dissected until the union of the cystic duct and common bile duct was seen. A critical view of safety was achieved. The cystic duct was then divided and sealed with the Harmonic scissors. A PDS Endoloop was then placed throughout the cystic duct stump. The cystic artery divided and sealed with the Harmonic scissors. The gallbladder was then removed from the liver bed using Harmonic scissors. The gallbladder was then extracted through the epigastric port site. Operative field was checked for any bleeding spots and Harmonic scissors was used to coagulate the liver bed. The abdomen was irrigated. The trocars were removed. The skin was closed using interrupted 3-0 Vicryl suture. Dermabond dressing were applied. The patient tolerated the procedure well.
[2023-04-08] MEDS ORDERED: HYDROmorphone 1 MG/ML 1 ML SYRINGE IVP PRN (16:39)
[2023-04-08] MEDS ORDERED: ONDANSETRON 4 MG/2 ML VIAL IVP PRN (16:39)
[2023-04-08] MEDS: DEXTROSE 50% SYRINGE 50 ML IVP ONE ×2 (16:55→17:10)
[2023-04-08 16:56] LABS: Glucose,Whole Blood 56 mg/dL (70-110)
[2023-04-08 16:56] LABS: Glucose,Whole Blood 47 mg/dL (70-110)
[2023-04-08] MEDS ORDERED: DEXTROSE 5%-0.45% NACL 1,000 ML IV ONE (17:08)
[2023-04-08 17:10] LABS: Glucose,Whole Blood 74 mg/dL (70-110)
[2023-04-08] MEDS ORDERED: GLYCOPYRROLATE 0.2 MG/ML 2 ML VIAL IVP ONE ×2 (17:23)
[2023-04-08] MEDS ORDERED: HYDROmorphone 0.5 MG/0.5 ML SYRINGE IVP ONE (17:45)
[2023-04-08 17:51] LABS: Glucose,Whole Blood 106 mg/dL (70-110)
[2023-04-08] MEDS: metroNIDAZOLE-NS PMX 500 MG in SALINE 1 100ML.BAG IVPB SCH ×2 (18:24→23:17)
[2023-04-08] MEDS: HYDROcodone/APAP 7.5-325MG 1 EACH TAB PO PRN (20:29)
[2023-04-08 23:40] LABS: Glucose,Whole Blood 33 mg/dL (70-110)
[2023-04-09 00:21] LABS: Glucose,Whole Blood 69 mg/dL (70-110)
[2023-04-09 00:56] LABS: Glucose,Whole Blood 53 mg/dL (70-110)
[2023-04-09] MEDS ORDERED: DEXTROSE 50% SYRINGE 50 ML IVP STA ×2 (01:10→06:06)
[2023-04-09] MEDS: DEXTROSE 10% IN WATER 500 ML in EMPTY BAG 1 BAG IV SCH ×5 (01:26→20:49)
[2023-04-09] MEDS: SODIUM CHLORIDE 0.9% 1,000 ML IV SCH ×3 (01:56→12:44)
[2023-04-09 02:15] LABS: Glucose,Whole Blood 138 mg/dL (70-110)
[2023-04-09 04:46] LABS: Glucose,Whole Blood 69 mg/dL (70-110)
[2023-04-09 05:59] LABS: Glucose,Whole Blood 52 mg/dL (70-110)
[2023-04-09 06:45] LABS: Glucose,Whole Blood 93 mg/dL (70-110)
[2023-04-09 08:19] LABS: Basophils % (A) 0 %; Eosinophils % (A) 0 %; HCT 39.8 % (34.0-46.0); Lymphocytes # (A) 1.4 k/uL (1.0-4.8); Lymphocytes % (A) 13 %; MCH 30.3 pg (25.0-35.0); MCHC 32.6 g/dL (31.0-37.0); MCV 92.9 fL (80.0-100.0); Mean Platelet Volume 10.2; Monocytes # (A) 0.5 k/uL (0-1.0); Monocytes % (A) 4 %; Neutrophils % (A) 82 %; Platelet Count 204 k/uL (150-450); RBC 4.29 m/uL (3.80-5.40); RDW 12.5 % (11.5-15.5)
[2023-04-09 08:40] LABS: Glucose,Whole Blood 72 mg/dL (70-110)
[2023-04-09] MEDS: METOPROLOL TARTRATE 12.5 MG TAB PO SCH ×2 (08:42→20:08)
[2023-04-09] MEDS: PANTOPRAZOLE 40 MG/10 ML VIAL IVP SCH (08:46)
[2023-04-09] MEDS: ENOXAPARIN 40 MG/0.4 ML SYRINGE SQ SCH (08:47)
[2023-04-09] MEDS: MAGNESIUM OXIDE 400 MG TAB PO SCH (08:47)
[2023-04-09] MEDS: DORZOLAMIDE-TIMOLOL 2.23%/0.68 10ML BTL RIGHT EYE SCH ×2 (08:47→20:10)
[2023-04-09] MEDS: metroNIDAZOLE-NS PMX 500 MG in SALINE 1 100ML.BAG IVPB SCH ×2 (08:47→16:20)
[2023-04-09] MEDS: MULTIVITAMINS, THERA 1 EACH TAB PO SCH (09:14)
[2023-04-09] MEDS: HYDROcodone/APAP 7.5-325MG 1 EACH TAB PO PRN ×2 (09:14→16:28)
--- NOTE | 2023-04-09 11:28 | XR ---
EXAMINATION TYPE: XR chest 2V DATE OF EXAM: 04/09/2023 COMPARISON: 04/07/2023 TECHNIQUE: PA and lateral views submitted. HISTORY: Hypoxia FINDINGS: The lungs are clear and there is no pneumothorax or pleural effusion. Bilateral lower lobe infiltrat e. Underlying COPD. Calcified granuloma right lung. Heart size normal and no overt failure. Osseous structures demonstrate hypertrophic and degenerative changes of the spine. IMPRESSION: 1. Bilateral lower lobe infiltrate correlate for pneumonia..
[2023-04-09 12:20] LABS: Glucose,Whole Blood 77 mg/dL (70-110)
[2023-04-09 13:58] LABS: C-Peptide 9.68 ng/mL (0.81-3.85)
[2023-04-09 14:09] LABS: ALT 41 U/L (8-44); AST 43 U/L (13-35); Albumin 4.1 g/dL (3.8-4.9); Albumin/Globulin Ratio 1.52 Ratio (1.60-3.17); Alkaline Phosphatase 87 U/L (41-126); BUN/Creat Ratio 8.67 Ratio (12.00-20.00); Blood Urea Nitrogen 7.8 mg/dL (9.0-27.0); Calcium 9.5 mg/dL (8.7-10.3); Carbon Dioxide 18.9 mmol/L (21.6-31.8); Chloride 103 mmol/L (96-109); Globulin 2.7 g/dL (1.6-3.3); Glucose 72 mg/dL (70-110); Potassium 4.1 mmol/L (3.5-5.5); Sodium 137 mmol/L (135-145); Total Bilirubin 0.5 mg/dL (0.3-1.2); Total Protein 6.8 g/dL (6.2-8.2)
--- NOTE | 2023-04-09 15:26 | P.PN ---
Subjective Progress Note Date: 04/09/23 CHIEF COMPLAINT: Gallstone pancreatitis HISTORY OF PRESENT ILLNESS: Postop day #1 status post laparoscopic cholecystectomy. Patient complains of abdominal pain. She is due for pain meds. Denies any nausea or vomiting. Denies any flatus. She has been having issues with hypoglycemia. She was able to eat breakfast. Afebrile. WBC is trending down from 14.5-11 Hgb is 13 platelets 204. Total bili 0.5 AST 43 ALT 41 alk phos 87. Chest x-ray bilateral lower lobe infiltrate correlate for pneumonia. PHYSICAL EXAM: VITAL SIGNS: Reviewed. GENERAL: Well-developed in no acute distress. ABDOMEN: Soft. Nondistended. Tenderness at incision sites. Incision sites clean dry and intact. NEUROLOGIC: Alert and oriented. Cranial nerves II through XII grossly intact. ASSESSMENT: 1. Gallstone pancreatitis status post laparoscopic cholecystectomy 2. Cholecystitis PLAN: -Continue regular diet -Medicine service to manage hypoglycemia -Continue antibiotics -Continue pain management -Encouraged patient to use incentive spirometer -Encouraged patient to increase activity level -Patient can be discharged from surgical standpoint when medically cleared. Physician Hotel Room Attendant note has been reviewed by physician. Signing provider agrees with the documented findings, assessment, and plan of care. Objective - Vital Signs Vital signs: Vital Signs Temp 99.5 F 04/09/23 08:00 Pulse 59 L 04/09/23 08:00 Resp 16 04/09/23 08:00 BP 97/60 04/09/23 08:00 Pulse Ox 88 L 04/09/23 08:00 FiO2 Intake & Output 04/08/23 04/09/23 04/09/23 18:59 06:59 18:59 Intake Total 1600 180 Output Total 5 Balance 1595 180 Intake: IV 1550 Intake, IV Titration 50 Amount cefTRIAXone 1 gm In 50 Sodium Chloride 0.9% 50 ml @ 100 mls/hr IVPB Q24HR REYES Rx#:[id number] Oral 180 Output: Estimated Blood Loss 5 Other: # Voids 2 - Labs CBC & Chem 7: 04/09/23 06:57 04/09/23 06:12 Labs: Abnormal Lab Results - Last 24 Hours (Table) 04/08/23 04/08/23 04/08/23 Range/Units 13:02 14:51 16:52 WBC (3.8-10.6) k/uL Neutrophils # (1.3-7.7) k/uL Chloride 110 H (98-107) mmol/L Carbon Dioxide 21 L (22-30) mmol/L Glucose 64 L (74-99) mg/dL POC Glucose (mg/dL) 41 L 47 L (70-110) mg/dL AST 39 H (14-36) U/L 04/08/23 04/08/23 04/09/23 Range/Units 16:54 23:38 00:20 WBC (3.8-10.6) k/uL Neutrophils # (1.3-7.7) k/uL Chloride (98-107) mmol/L Carbon Dioxide (22-30) mmol/L Glucose (74-99) mg/dL POC Glucose (mg/dL) 56 L 33 L 69 L (70-110) mg/dL AST (14-36) U/L 04/09/23 04/09/23 04/09/23 Range/Units 00:55 02:14 04:45 WBC (3.8-10.6) k/uL Neutrophils # (1.3-7.7) k/uL Chloride (98-107) mmol/L Carbon Dioxide (22-30) mmol/L Glucose (74-99) mg/dL POC Glucose (mg/dL) 53 L 138 H 69 L (70-110) mg/dL AST (14-36) U/L 04/09/23 04/09/23 Range/Units 05:58 06:57 WBC 11.0 H (3.8-10.6) k/uL Neutrophils # 9.0 H (1.3-7.7) k/uL Chloride (98-107) mmol/L Carbon Dioxide (22-30) mmol/L Glucose (74-99) mg/dL POC Glucose (mg/dL) 52 L (70-110) mg/dL AST (14-36) U/L
[2023-04-09 17:17] LABS: Glucose,Whole Blood 79 mg/dL (70-110)
[2023-04-09 19:54] LABS: Glucose,Whole Blood 102 mg/dL (70-110)
--- NOTE | 2023-04-09 22:12 | P.PN ---
Subjective Progress Note Date: 04/09/23 Patient is evaluated today on the medical floor postoperative day #1 laproscopic cholecystectomy. Having some mild incisional abdominal pain. Reports she is not passing gas yet, has been up ambulating and has had diet today. No nausea or vomiting. Lipase normalized and liver enzymes remain stable with mild elevation of AST. Patient remains on D10 gtt at 100 mls/hr for hypoglycemia which will be weaned once she is tolerating diet. Hemoglobin A1C 6.0 and C-Peptide was elevated at 9.68. Review of Systems Constitutional: Denied any fatigue denied any fever. Cardio vascular: denied any chest pain, palpitations Gastrointestinal: denied any nausea, vomiting, diarrhea, not passing gas no BM. Pulmonary: Denied any shortness of breath cough Neurologic denied any new focal deficits All inpatient medications were reviewed and appropriate changes in these medications as dictated in the interval history and assessment and plan. PHYSICAL EXAMINATION: GENERAL: The patient is alert and oriented x3, not in any acute distress. Well developed, well nourished. HEENT: Pupils are round and equally reacting to light. EOMI. No scleral icterus. No conjunctival pallor. Normocephalic, atraumatic. No pharyngeal erythema. No thyromegaly. CARDIOVASCULAR: S1 and S2 present. No murmurs, rubs, or gallops. PULMONARY: Chest is clear to auscultation, no wheezing or crackles. ABDOMEN: Soft, nontender, nondistended, normoactive bowel sounds. No palpable organomegaly. Post surgical abdomen. MUSCULOSKELETAL: No joint swelling or deformity. EXTREMITIES: No cyanosis, clubbing, or pedal edema. NEUROLOGICAL: Gross neurological examination did not reveal any focal deficits. SKIN: No rashes. Assessment and Plan Acute gallstone pancreatitis with concern for acute cholecystitis patient is postoperative day #1 laproscopic cholecystecomy continues on antibiotic coverage with IV flagyl, IV ceftriaxone. Hypooglycemia with elevated C-Peptide levels, remains on D10 gtt and will decrease to 75 mls/hr as patient has been started on diet postoperatively. Will check insulin levels. Patient will be referred to follow up with endocrinology on discharge. Hyperlipidemia Resume atorvastation Hypertension blood pressure low/normal postoperatively and nifedipine and hydrodiuril are being held with close monitoring of blood pressure. History of coronary artery disease not on aspirin or plavix follow up with patient Hx of stroke in the past Former smoker GI prophylaxis on protonix DVT prophylaxis on lovenox Full Code The impression and plan of care has been dictated by Shanika Mari, Nurse Practitioner as directed. Dr. Owen MD I have performed a history and physical examination and medical decision making of this patient, discussed the same with the dictator, and agree with the dictators assessment and plan as written, documented as a scribe. Based on total visit time, I have performed more than 50% of this visit. Objective - Vital Signs Vital signs: Vital Signs Temp 98.5 F 04/09/23 19:14 Pulse 80 04/09/23 19:14 Resp 16 04/09/23 19:14 BP 120/62 04/09/23 19:14 Pulse Ox 98 04/09/23 19:14 FiO2 Intake & Output 04/09/23 04/09/23 04/10/23 06:59 18:59 06:59 Intake Total 540 Balance 540 Intake: Oral 540 Other: # Voids 2 4 - Labs CBC & Chem 7: 04/09/23 06:57 04/09/23 06:12 Labs: Abnormal Lab Results - Last 24 Hours (Table) 04/08/23 04/09/23 04/09/23 Range/Units 23:38 00:20 00:55 WBC (3.8-10.6) k/uL Neutrophils # (1.3-7.7) k/uL Carbon Dioxide (21.6-31.8) mmol/L Anion Gap (4.00-12.00) mmol/L BUN (9.0-27.0) mg/dL BUN/Creatinine Ratio (12.00-20.00) Ratio POC Glucose (mg/dL) 33 L 69 L 53 L (70-110) mg/dL C-Peptide (0.81-3.85) ng/mL AST (13-35) U/L Albumin/Globulin Ratio (1.60-3.17) Ratio 04/09/23 04/09/23 04/09/23 Range/Units 02:14 04:45 05:58 WBC (3.8-10.6) k/uL Neutrophils # (1.3-7.7) k/uL Carbon Dioxide (21.6-31.8) mmol/L Anion Gap (4.00-12.00) mmol/L BUN (9.0-27.0) mg/dL BUN/Creatinine Ratio (12.00-20.00) Ratio POC Glucose (mg/dL) 138 H 69 L 52 L (70-110) mg/dL C-Peptide (0.81-3.85) ng/mL AST (13-35) U/L Albumin/Globulin Ratio (1.60-3.17) Ratio 04/09/23 04/09/23 Range/Units 06:12 06:57 WBC 11.0 H (3.8-10.6) k/uL Neutrophils # 9.0 H (1.3-7.7) k/uL Carbon Dioxide 18.9 L (21.6-31.8) mmol/L Anion Gap 15.10 H (4.00-12.00) mmol/L BUN 7.8 L (9.0-27.0) mg/dL BUN/Creatinine Ratio 8.67 L (12.00-20.00) Ratio POC Glucose (mg/dL) (70-110) mg/dL C-Peptide 9.68 H (0.81-3.85) ng/mL AST 43 H (13-35) U/L Albumin/Globulin Ratio 1.52 L (1.60-3.17) Ratio Assessment and Plan Time with Patient: Less than 30
[2023-04-10] MEDS: metroNIDAZOLE-NS PMX 500 MG in SALINE 1 100ML.BAG IVPB SCH ×3 (00:53→16:46)
[2023-04-10 04:05] LABS: African American GFR (CKD) 86 (>60 ml/min/1.73 sqM); Anion Gap 9 mmol/L; Blood Urea Nitrogen 9 mg/dL (7-17); Calcium 8.4 mg/dL (8.4-10.2); Carbon Dioxide 24 mmol/L (22-30); Chloride 102 mmol/L (98-107); Glucose 113 mg/dL (74-99); Non-African American GFR(CKD) 75 (>60 ml/min/1.73 sqM); Sodium 135 mmol/L (137-145)
[2023-04-10 04:17] LABS: Potassium 3.9 mmol/L (3.5-5.1)
[2023-04-10] MEDS: DEXTROSE 10% IN WATER 500 ML in EMPTY BAG 1 BAG IV SCH (04:49)
[2023-04-10 05:44] LABS: Glucose,Whole Blood 73 mg/dL (70-110)
[2023-04-10] MEDS: MAGNESIUM OXIDE 400 MG TAB PO SCH (09:24)
[2023-04-10] MEDS: METOPROLOL TARTRATE 12.5 MG TAB PO SCH ×2 (09:24→20:17)
[2023-04-10] MEDS: ENOXAPARIN 40 MG/0.4 ML SYRINGE SQ SCH (09:24)
[2023-04-10] MEDS: MULTIVITAMINS, THERA 1 EACH TAB PO SCH (09:24)
[2023-04-10] MEDS: PANTOPRAZOLE 40 MG/10 ML VIAL IVP SCH (09:25)
[2023-04-10] MEDS: DORZOLAMIDE-TIMOLOL 2.23%/0.68 10ML BTL RIGHT EYE SCH ×2 (09:26→20:17)
[2023-04-10] MEDS: HYDROcodone/APAP 7.5-325MG 1 EACH TAB PO PRN (09:38)
--- NOTE | 2023-04-10 11:12 | P.PN ---
Subjective Progress Note Date: 04/10/23 CHIEF COMPLAINT: Gallstone pancreatitis HISTORY OF PRESENT ILLNESS: Postop day #2 status post laparoscopic cholecystectomy. Patient complains of abdominal gas pain. She denies any nausea or vomiting. She is tolerating diet. Afebrile. She has been up and ambulating. Denies any flatus. She does complain of constipation. Low-grade temp 99.9. CBC pending PHYSICAL EXAM: VITAL SIGNS: Reviewed. GENERAL: Well-developed in no acute distress. ABDOMEN: Soft. Nondistended. Tenderness at incision sites. Incision sites clean dry and intact. NEUROLOGIC: Alert and oriented. Cranial nerves II through XII grossly intact. ASSESSMENT: 1. Gallstone pancreatitis status post laparoscopic cholecystectomy 2. Cholecystitis PLAN: -Patient can be discharged from surgical standpoint when medically cleared -Continue regular diet -Medicine service to manage hypoglycemia -Continue antibiotics -Continue pain management -Encouraged patient to use incentive spirometer -Encouraged patient to ambulate -Agree with adding colace and miralax Physician Instrumentation Instructor note has been reviewed by physician. Signing provider agrees with the documented findings, assessment, and plan of care. Objective - Vital Signs Vital signs: Vital Signs Temp 98.5 F 04/10/23 07:40 Pulse 79 04/10/23 07:40 Resp 18 04/10/23 07:40 BP 123/68 04/10/23 07:40 Pulse Ox 94 L 04/10/23 07:40 FiO2 Intake & Output 04/09/23 04/10/23 04/10/23 18:59 06:59 18:59 Intake Total 540 120 Balance 540 120 Intake: Oral 540 120 Other: # Voids 4 4 - Labs CBC & Chem 7: 04/09/23 06:57 04/10/23 03:26 Labs: Abnormal Lab Results - Last 24 Hours (Table) 04/09/23 04/10/23 Range/Units 06:12 03:26 Sodium 135 L (137-145) mmol/L Carbon Dioxide 18.9 L (21.6-31.8) mmol/L Anion Gap 15.10 H (4.00-12.00) mmol/L BUN 7.8 L (9.0-27.0) mg/dL BUN/Creatinine Ratio 8.67 L (12.00-20.00) Ratio Glucose 113 H (74-99) mg/dL C-Peptide 9.68 H (0.81-3.85) ng/mL AST 43 H (13-35) U/L Albumin/Globulin Ratio 1.52 L (1.60-3.17) Ratio
[2023-04-10] MEDS: polyethylene glycoL 3350 17 GM POWD.PACK PO SCH (11:16)
[2023-04-10] MEDS: DOCUSATE 100 MG CAP PO SCH (11:16)
[2023-04-10 11:32] LABS: Glucose,Whole Blood 98 mg/dL (70-110)
[2023-04-10 17:55] LABS: Glucose,Whole Blood 115 mg/dL (70-110)
[2023-04-10 20:14] LABS: Glucose,Whole Blood 93 mg/dL (70-110)
[2023-04-10] MEDS: ATORVASTATIN 80 MG TAB PO SCH (20:17)
--- NOTE | 2023-04-10 22:31 | P.PN ---
Subjective Progress Note Date: 04/10/23 Patient is evaluated today on the medical floor postoperative day #1 laproscopic cholecystectomy. Having some mild incisional abdominal pain. Reports she is not passing gas yet, has been up ambulating and has had diet today. No nausea or vomiting. Lipase normalized and liver enzymes remain stable with mild elevation of AST. Patient remains on D10 gtt at 100 mls/hr for hypoglycemia which will be weaned once she is tolerating diet. Hemoglobin A1C 6.0 and C-Peptide was elevated at 9.68. 04/10/2023 Patient on medical floor postoperative day #2 laproscopic cholecystectomy. Patient reports tolerating diet, not passing gas yet. Bowels are active, abdomen is soft. Patient remains on D10 gtt and blood sugar in the 70s. C peptide is elevated and serum insulin level is pending. Patient will need to follow up with endocrinology on discharge. Encouraged to continue with the incentive spirometer. Review of Systems Constitutional: Denied any fatigue denied any fever. Cardio vascular: denied any chest pain, palpitations Gastrointestinal: denied any nausea, vomiting, diarrhea, not passing gas no BM. Pulmonary: Denied any shortness of breath cough Neurologic denied any new focal deficits All inpatient medications were reviewed and appropriate changes in these medications as dictated in the interval history and assessment and plan. PHYSICAL EXAMINATION: GENERAL: The patient is alert and oriented x3, not in any acute distress. Well developed, well nourished. HEENT: Pupils are round and equally reacting to light. EOMI. No scleral icterus. No conjunctival pallor. Normocephalic, atraumatic. No pharyngeal erythema. No thyromegaly. CARDIOVASCULAR: S1 and S2 present. No murmurs, rubs, or gallops. PULMONARY: Chest is clear to auscultation, no wheezing or crackles. ABDOMEN: Soft, nontender, nondistended, normoactive bowel sounds. No palpable organomegaly. Post surgical abdomen. MUSCULOSKELETAL: No joint swelling or deformity. EXTREMITIES: No cyanosis, clubbing, or pedal edema. NEUROLOGICAL: Gross neurological examination did not reveal any focal deficits. SKIN: No rashes. Assessment and Plan Acute gallstone pancreatitis with concern for acute cholecystitis patient is postoperative day #2 laproscopic cholecystecomy continues on antibiotic coverage with IV flagyl, IV ceftriaxone. Hypooglycemia with elevated C-Peptide levels, remains on D10 gtt which will be cut down to 40 mls/hr and if blood glucose is remaining about 75 will discontinue fluids later this evening. Will check insulin levels. Patient will be referred to follow up with endocrinology on discharge. Hyperlipidemia Resume atorvastation Hypertension blood pressure low/normal postoperatively and nifedipine and hydrodiuril are being held with close monitoring of blood pressure. History of coronary artery disease not on aspirin or plavix follow up with patient Hx of stroke in the past Former smoker GI prophylaxis on protonix DVT prophylaxis on lovenox Full Code The impression and plan of care has been dictated by Shanika Mari, Nurse Practitioner as directed. Dr. Owen MD I have performed a history and physical examination and medical decision making of this patient, discussed the same with the dictator, and agree with the dictators assessment and plan as written, documented as a scribe. Based on total visit time, I have performed more than 50% of this visit. Objective - Vital Signs Vital signs: Vital Signs Temp 98.1 F 04/10/23 19:12 Pulse 77 04/10/23 19:12 Resp 17 04/10/23 19:12 BP 137/67 04/10/23 19:12 Pulse Ox 100 04/10/23 19:12 FiO2 Intake & Output 04/10/23 04/10/23 04/11/23 06:59 18:59 06:59 Intake Total 360 Balance 360 Intake: Oral 360 Other: # Voids 4 2 - Labs CBC & Chem 7: 04/09/23 06:57 04/10/23 03:26 Labs: Abnormal Lab Results - Last 24 Hours (Table) 04/10/23 04/10/23 Range/Units 03:26 17:49 Sodium 135 L (137-145) mmol/L Glucose 113 H (74-99) mg/dL POC Glucose (mg/dL) 115 H (70-110) mg/dL Assessment and Plan Time with Patient: Less than 30
[2023-04-11] MEDS: metroNIDAZOLE-NS PMX 500 MG in SALINE 1 100ML.BAG IVPB SCH ×4 (01:04→23:58)
[2023-04-11 01:07] LABS: Glucose,Whole Blood 98 mg/dL (70-110)
[2023-04-11 06:01] LABS: Glucose,Whole Blood 91 mg/dL (70-110)
[2023-04-11] MEDS: MAGNESIUM OXIDE 400 MG TAB PO SCH (07:32)
[2023-04-11] MEDS: ENOXAPARIN 40 MG/0.4 ML SYRINGE SQ SCH (07:35)
[2023-04-11] MEDS: DOCUSATE 100 MG CAP PO SCH (07:35)
[2023-04-11] MEDS: polyethylene glycoL 3350 17 GM POWD.PACK PO SCH (07:35)
[2023-04-11] MEDS: METOPROLOL TARTRATE 12.5 MG TAB PO SCH ×2 (07:35→21:09)
[2023-04-11] MEDS: MULTIVITAMINS, THERA 1 EACH TAB PO SCH (07:36)
[2023-04-11] MEDS: DORZOLAMIDE-TIMOLOL 2.23%/0.68 10ML BTL RIGHT EYE SCH ×2 (07:41→21:10)
[2023-04-11] MEDS: PANTOPRAZOLE 40 MG/10 ML VIAL IVP SCH ×2 (09:19→21:09)
[2023-04-11 09:34] LABS: ALT 24 U/L (4-34); AST 25 U/L (14-36); African American GFR (CKD) >90 (>60 ml/min/1.73 sqM); Albumin 3.2 g/dL (3.5-5.0); Albumin/Globulin Ratio 1.1; Alkaline Phosphatase 68 U/L (38-126); Amylase 42 U/L (30-110); Anion Gap 10 mmol/L; Blood Urea Nitrogen 7 mg/dL (7-17); Calcium 8.8 mg/dL (8.4-10.2); Carbon Dioxide 22 mmol/L (22-30); Chloride 109 mmol/L (98-107); Globulin 2.8 g/dL; Glucose 102 mg/dL (74-99); Lipase 56 U/L (23-300); Non-African American GFR(CKD) 84 (>60 ml/min/1.73 sqM); Potassium 4.1 mmol/L (3.5-5.1); Sodium 141 mmol/L (137-145); Total Bilirubin 0.6 mg/dL (0.2-1.3)
--- NOTE | 2023-04-11 10:27 | XR ---
EXAMINATION TYPE: XR abdomen 2V DATE OF EXAM: 04/11/2023 COMPARISON: NONE HISTORY: Pain TECHNIQUE: One view abdominal series FINDINGS: The osseous structures are intact. The bowel gas pattern is nonspecific. Bilateral hip arthropathy. Calcifications in pelvis likely vascular. Hypertrophic degenerative change spine. Radiopaque density overlying the right kidney likely represents bowel content. Retained fecal debris. IMPRESSION: 1. Nonspecific abdomen. No obstruction. Correlate for constipation.
[2023-04-11] MEDS ORDERED: bisacodyL 10 MG SUPP RECTAL STA (11:21)
[2023-04-11] MEDS ORDERED: LACTULOSE 20 GM/30 ML CUP PO ONE (11:22)
[2023-04-11 11:35] LABS: Glucose,Whole Blood 110 mg/dL (70-110)
[2023-04-11] MEDS ORDERED: KETOROLAC 15 MG/ML 1 ML VIAL IVP STA (12:57)
[2023-04-11] MEDS: ONDANSETRON 4 MG/2 ML VIAL IVP PRN (13:38)
--- NOTE | 2023-04-11 15:59 | P.PN ---
Subjective Progress Note Date: 04/11/23 CHIEF COMPLAINT: Gallstone pancreatitis HISTORY OF PRESENT ILLNESS: Postop day #3 status post laparoscopic cholecystectomy. Patient complaining of abdominal pain. Medicine service ordered abdominal x-ray that reported nonspecific abdomen. No obstruction. Correlate for constipation. Patient reports she did have a small amount of gas 1 and a small bowel movement. Afebrile. LFTs are normal lipase 56 PHYSICAL EXAM: VITAL SIGNS: Reviewed. GENERAL: Well-developed in no acute distress. ABDOMEN: Soft. Nondistended. Tenderness at incision sites. Incision sites clean dry and intact. NEUROLOGIC: Alert and oriented. Cranial nerves II through XII grossly intact. ASSESSMENT: 1. Gallstone pancreatitis status post laparoscopic cholecystectomy 2. Cholecystitis 3. Constipation PLAN: -Continue Colace and MiraLAX -Lactulose ordered. Agree with Dulcolax suppository for constipation -Patient can be discharged from surgical standpoint when medically cleared -Continue regular diet -Medicine service to manage hypoglycemia -Continue antibiotics -Continue pain management -Encouraged patient to use incentive spirometer -Encouraged patient to ambulate Physician Escrow Agent note has been reviewed by physician. Signing provider agrees with the documented findings, assessment, and plan of care. Objective - Vital Signs Vital signs: Vital Signs Temp 98.2 F 04/11/23 07:43 Pulse 67 04/11/23 07:43 Resp 18 04/11/23 07:43 BP 119/60 04/11/23 07:43 Pulse Ox 98 04/11/23 07:43 FiO2 Intake & Output 04/10/23 04/11/23 04/11/23 18:59 06:59 18:59 Intake Total 360 50 Balance 360 50 Intake: Oral 360 50 Other: # Voids 2 3 - Labs CBC & Chem 7: 04/09/23 06:57 04/11/23 08:53 Labs: Abnormal Lab Results - Last 24 Hours (Table) 04/10/23 04/11/23 Range/Units 17:49 08:53 Chloride 109 H (98-107) mmol/L Glucose 102 H (74-99) mg/dL POC Glucose (mg/dL) 115 H (70-110) mg/dL Total Protein 6.0 L (6.3-8.2) g/dL Albumin 3.2 L (3.5-5.0) g/dL
[2023-04-11 17:13] LABS: Glucose,Whole Blood 120 mg/dL (70-110)
[2023-04-11 20:41] LABS: Glucose,Whole Blood 93 mg/dL (70-110)
[2023-04-11] MEDS: ATORVASTATIN 80 MG TAB PO SCH (21:09)
[2023-04-12 02:42] LABS: Glucose,Whole Blood 106 mg/dL (70-110)
[2023-04-12 06:09] LABS: Glucose,Whole Blood 118 mg/dL (70-110)
--- NOTE | 2023-04-12 08:46 | P.PN ---
Subjective Progress Note Date: 04/11/23 Patient is evaluated today on the medical floor postoperative day #1 laproscopic cholecystectomy. Having some mild incisional abdominal pain. Reports she is not passing gas yet, has been up ambulating and has had diet today. No nausea or vomiting. Lipase normalized and liver enzymes remain stable with mild elevation of AST. Patient remains on D10 gtt at 100 mls/hr for hypoglycemia which will be weaned once she is tolerating diet. Hemoglobin A1C 6.0 and C-Peptide was elevated at 9.68. 04/10/2023 Patient on medical floor postoperative day #2 laproscopic cholecystectomy. Patient reports tolerating diet, not passing gas yet. Bowels are active, abdomen is soft. Patient remains on D10 gtt and blood sugar in the 70s. C peptide is elevated and serum insulin level is pending. Patient will need to follow up with endocrinology on discharge. Encouraged to continue with the incentive spirometer. 04/11/2023 Patient is evaluated today on the medical floor postoperative day #3 laproscopic cholecystectomy patient reports continued abdominal discomfort difficult to describe. Doesn't report it as incisional and incisions are clean dry approximated. She is tolerating diet reports 1 small bowel movement post surgical. Doesn't report passing much gas. Blood sugars have improved off the D10 gtt and will continue with close monitoring. Review of Systems Constitutional: Denied any fatigue denied any fever. Cardio vascular: denied any chest pain, palpitations Gastrointestinal: denied any nausea, vomiting, diarrhea, not passing gas no BM. Pulmonary: Denied any shortness of breath cough Neurologic denied any new focal deficits All inpatient medications were reviewed and appropriate changes in these medications as dictated in the interval history and assessment and plan. PHYSICAL EXAMINATION: GENERAL: The patient is alert and oriented x3, not in any acute distress. Well developed, well nourished. HEENT: Pupils are round and equally reacting to light. EOMI. No scleral icterus. No conjunctival pallor. Normocephalic, atraumatic. No pharyngeal erythema. No thyromegaly. CARDIOVASCULAR: S1 and S2 present. No murmurs, rubs, or gallops. PULMONARY: Chest is clear to auscultation, no wheezing or crackles. ABDOMEN: Soft, nontender, nondistended, normoactive bowel sounds. No palpable organomegaly. Post surgical abdomen. MUSCULOSKELETAL: No joint swelling or deformity. EXTREMITIES: No cyanosis, clubbing, or pedal edema. NEUROLOGICAL: Gross neurological examination did not reveal any focal deficits. SKIN: No rashes. Assessment and Plan -Acute gallstone pancreatitis with concern for acute cholecystitis patient is postoperative day #3 laproscopic cholecystecomy continues on antibiotic coverage with IV flagyl, IV ceftriaxone. Continue abdominal pain post surgical will check abdominal xray and repeat liver enzymes and amylase/lipase discussed with surgery who are recommending to keep the patient overnight. Bowel regimen given. -Hypooglycemia with elevated C-Peptide levels serum insulin level is normal however, unlikely this is an insulinoma however will recommend to see endocrine on -discharge and patient will continue on accuchecks ACHS and closing monitoring of blood glucose remaining in normal range with discontinuation of D10 gtt. Encourage increase in oral intake. -Hyperlipidemia Resume atorvastation -Hypertension blood pressure low/normal postoperatively and nifedipine and hydrodiuril are being held with close monitoring of blood pressure. -History of coronary artery disease not on aspirin or plavix follow up with patient -Hx of stroke in the past Former smoker GI prophylaxis on protonix DVT prophylaxis on lovenox Full Code The impression and plan of care has been dictated by Shanika Mari, Nurse Practitioner as directed. Dr. Owen MD I have performed a history and physical examination and medical decision making of this patient, discussed the same with the dictator, and agree with the dictators assessment and plan as written, documented as a scribe. Based on total visit time, I have performed more than 50% of this visit. Objective - Vital Signs Vital signs: Vital Signs Temp 98.2 F 04/12/23 02:36 Pulse 84 04/12/23 02:36 Resp 15 04/12/23 02:36 BP 101/51 04/12/23 02:36 Pulse Ox 96 04/12/23 02:36 FiO2 Intake & Output 04/11/23 04/11/23 04/12/23 06:59 18:59 06:59 Intake Total 50 Balance 50 Intake: Oral 50 Other: # Voids 3 2 # Bowel Movements 1 - Labs CBC & Chem 7: 04/09/23 06:57 04/11/23 08:53 Labs: Abnormal Lab Results - Last 24 Hours (Table) 04/11/23 04/11/23 Range/Units 08:53 17:11 Chloride 109 H (98-107) mmol/L Glucose 102 H (74-99) mg/dL POC Glucose (mg/dL) 120 H (70-110) mg/dL Total Protein 6.0 L (6.3-8.2) g/dL Albumin 3.2 L (3.5-5.0) g/dL Assessment and Plan Time with Patient: Less than 30
[2023-04-12] MEDS: PANTOPRAZOLE 40 MG/10 ML VIAL IVP SCH (09:04)
[2023-04-12] MEDS: metroNIDAZOLE-NS PMX 500 MG in SALINE 1 100ML.BAG IVPB SCH ×2 (09:04→17:51)
[2023-04-12] MEDS: METOPROLOL TARTRATE 12.5 MG TAB PO SCH (09:05)
[2023-04-12] MEDS: DOCUSATE 100 MG CAP PO SCH (09:05)
[2023-04-12] MEDS: MAGNESIUM OXIDE 400 MG TAB PO SCH (09:05)
[2023-04-12] MEDS: MULTIVITAMINS, THERA 1 EACH TAB PO SCH (09:05)
[2023-04-12] MEDS: DORZOLAMIDE-TIMOLOL 2.23%/0.68 10ML BTL RIGHT EYE SCH (09:07)
[2023-04-12] MEDS: ENOXAPARIN 40 MG/0.4 ML SYRINGE SQ SCH (09:08)
[2023-04-12] MEDS: polyethylene glycoL 3350 17 GM POWD.PACK PO SCH (09:09)
--- NOTE | 2023-04-12 11:56 | P.PN ---
Subjective Progress Note Date: 04/12/23 CHIEF COMPLAINT: Gallstone pancreatitis HISTORY OF PRESENT ILLNESS: Postop day #4 status post laparoscopic cholecystectomy. Patient complaining of abdominal pain. Controlled with pain medication. She is tolerating diet. She has had bowel movements and flatus. Denies any nausea or vomiting. Afebrile. PHYSICAL EXAM: VITAL SIGNS: Reviewed. GENERAL: Well-developed in no acute distress. ABDOMEN: Soft. Nondistended. Tenderness at incision sites. Incision sites clean dry and intact. NEUROLOGIC: Alert and oriented. Cranial nerves II through XII grossly intact. ASSESSMENT: 1. Gallstone pancreatitis status post laparoscopic cholecystectomy 2. Cholecystitis 3. Constipation PLAN: -Patient can be discharged from surgical standpoint -Continue a good bowel regimen at home -Continue regular diet -Agree with antibiotics at discharge -Continue pain management. Continue patient's home pain regimen -Encouraged patient to use incentive spirometer -Encouraged patient to ambulate Physician Product Scientist note has been reviewed by physician. Signing provider agrees with the documented findings, assessment, and plan of care. Objective - Vital Signs Vital signs: Vital Signs Temp 98.0 F 04/12/23 08:00 Pulse 64 04/12/23 08:00 Resp 16 04/12/23 08:00 BP 112/57 04/12/23 08:00 Pulse Ox 96 04/12/23 08:00 FiO2 Intake & Output 04/11/23 04/12/23 04/12/23 18:59 06:59 18:59 Intake Total 50 Balance 50 Intake: Oral 50 Other: # Voids 2 3 # Bowel Movements 1 - Labs CBC & Chem 7: 04/09/23 06:57 04/11/23 08:53 Labs: Abnormal Lab Results - Last 24 Hours (Table) 04/11/23 04/12/23 Range/Units 17:11 06:08 POC Glucose (mg/dL) 120 H 118 H (70-110) mg/dL
[2023-04-12 12:14] LABS: Glucose,Whole Blood 64 mg/dL (70-110)
[2023-04-12 12:14] LABS: Glucose,Whole Blood 40 mg/dL (70-110)
[2023-04-12 12:35] LABS: Glucose,Whole Blood 41 mg/dL (70-110)
[2023-04-12 12:50] LABS: Glucose,Whole Blood 38 mg/dL (70-110)
[2023-04-12] MEDS ORDERED: DEXTROSE 50% SYRINGE 50 ML IVP ONE (12:56)
[2023-04-12] MEDS ORDERED: DEXTROSE 50% SYRINGE 50 ML IVP PRN ×2 (13:01)
[2023-04-12] MEDS: SIMETHICONE 80 MG CHEWABLE PO SCH ×3 (13:03→17:51)
[2023-04-12 13:05] VITALS: BMI 27.4
[2023-04-12 13:23] LABS: Glucose,Whole Blood 75 mg/dL (70-110)
[2023-04-12 14:58] VITALS: BP 126/60; PULSE 63; RESP 15; TEMP 98.2
[2023-04-12 17:13] LABS: Glucose,Whole Blood 103 mg/dL (70-110)
--- NOTE | 2023-04-13 12:42 | P.DS ---
Providers Date of admission: 04/07/23 07:01 Attending physician: Jacob Doe Consults: 04/07/23 08:41 Consult Physician Routine Consulting Provider: Deshawn Spring Consult Reason/Comments: Abdominal pain, cholelithiasis, pancreatitis Do you want consulting provider notified?: Yes Primary care physician: Bernadette [facility] Course: Final Diagnosis -Acute gallstone pancreatitis with concern for acute cholecystitis patient is postoperative day #4 laproscopic cholecystecomy -Hypooglycemia with elevated C-Peptide levels serum insulin level is normal however, unlikely this is an insulinoma however will recommend to see endocrine on -discharge and patient will continue on accuchecks ACHS and closing monitoring of blood glucose remaining in normal range with discontinuation of D10 gtt. Encourage increase in oral intake. -Hyperlipidemia Resume atorvastation -Hypertension blood pressure low/normal postoperatively and nifedipine and hydrodiuril are being held with close monitoring of blood pressure. -History of coronary artery disease not on aspirin or plavix follow up with patient -Hx of stroke in the past Former smoker GI prophylaxis on protonix DVT prophylaxis on lovenox Full Code Discharge Disposition Patient is stable for discharge recommending close follow up with PCP and referral to endocrinology. Patient having episodes of hypoglycemia with elevated C-peptide however having normal insulin levels and not a diabetic and not on insulin. She is given a glucometer to monitor blood sugar and also glucose tablets have been sent in. She will continue on short course of oral antibiotics on discharge and bowel regimen as well to avoid hypoglycemia. Patient to follow up with general surgery and PCP on discharge. Recommend to continue with incentive spirometer 10 x an hour while awake. Hospital Course This is a 67-year-old lady with past medical history significant for hypertension, hyperlipidemia who presented to the hospital for epigastric pain. Patient stated that she was all right last night when after eating dinner she started experiencing discomfort in the epigastric and retrosternal area. Pain was burning in nature, nonradiating, relieved by laying flat. Patient had bowel movement which eased her epigastric pain but later on patient started experiencing nausea and recurrence of pain. There was no complain of any fever or chills. No complain of palpitations. No complain of orthopnea or PND. Patient denies shortness of breath. Because of the symptoms, patient was brought to the ER. Initial lab work done in the ER showed WBC 14.5, hemoglobin 12.6, platelet count 27, sodium 141, potassium 4.1, BUN 13, creatinine 0.79, AST 43, ALT 33, troponin 0.012, proBNP 64, lipase 6430. CT abdominal and pelvis done showed unchanged 9 mm stone versus polyp in the gallbladder neck with some mild gallbladder distention gallbladder wall thickening, acute cholecystitis the differential. Patient admitted to medicine service and consult placed to general surgery. Patient was also on empiric antibiotic coverage. Patient underwent laproscopic cholecystectomy, postoperatively she was having episodes of hypoglycemia with sugars down to the 30s. She was started on a D10 drip and blood sugar was fairly well controlled. We checked a serum peptide which was elevated however her serum insulin was normal. Would recommend a referral to endocrinology on discharge as above. Patient did have a bowel movement post surgery was having some increased abdominal pain and was monitored an additional day. Her liver enzymes amylase and lipase have all normalized. She has been up ambulating and up in the shower. No chest pain or shortness of breath. Patient was cleared by general surgery will continue a short course of oral antibiotics at discharge. Lungs are clear S1-S2 auscultated abdomen is soft mild tenderness to incisional pain. She does have positive bowel sounds. She will be discharged home. Please see medication reconciliation for list of current medication. Thank you for allowing us to participate in the care of this patient. The impression and plan of care has been dictated by Shanika Mari, Nurse Practitioner as directed. Dr. Owen MD I have performed a history and physical examination and medical decision making of this patient, discussed the same with the dictator, and agree with the dictators assessment and plan as written, documented as a scribe. Based on total visit time, I have performed more than 50% of this visit. Patient Condition at Discharge: Fair Plan - Discharge Summary New Discharge Prescriptions: New polyethylene glycoL 3350 [Miralax] 17 gm PO DAILY packet cefUROXime axetiL [Ceftin] 500 mg PO BID 3 Days #6 tab metroNIDAZOLE [Flagyl] 500 mg PO TID 3 Days #9 tab Omeprazole [PriLOSEC] 20 mg PO AC-BRKFST #30 cap Docusate [Colace] 100 mg PO DAILY cap Dextrose Chew [Glucose Chew Tab] 4 gm PO Q10M PRN #10 tab PRN Reason: Hypoglycemia Continue fentaNYL 100MCG/HR PATCH [Duragesic 100MCG/HR] 100 mcg TRANSDERM Q48H HYDROcodone/APAP 10-325MG [[place] 10-325] 1 tab PO TID Atorvastatin [Lipitor] 80 mg PO HS Metoprolol Tartrate [Lopressor] 12.5 mg PO BID Multivitamins, Thera [Multivitamin (formulary)] 1 tab PO DAILY Dorzolamide/Timolol/Pf [Cosopt Pf 2%/0.5% Ophth Droperette] 1 drop RIGHT EYE BID Magnesium Oxide [Magox 400] 400 mg PO DAILY Discontinued NIFEdipine XL [Procardia XL] 60 mg PO DAILY Ibuprofen [Motrin] 800 mg PO Q8H PRN PRN Reason: Pain hydroCHLOROthiazide [Hydrodiuril] 25 mg PO Q48H Discharge Medication List fentaNYL 100MCG/HR PATCH [Duragesic 100MCG/HR] 100 mcg TRANSDERM Q48H 10/10/14 [History] HYDROcodone/APAP 10-325MG [[place] 10-325] 1 tab PO TID 09/26/16 [History] Atorvastatin [Lipitor] 80 mg PO HS 03/18/20 [History] Dorzolamide/Timolol/Pf [Cosopt Pf 2%/0.5% Ophth Droperette] 1 drop RIGHT EYE BID 03/18/20 [History] Metoprolol Tartrate [Lopressor] 12.5 mg PO BID 03/18/20 [History] Multivitamins, Thera [Multivitamin (formulary)] 1 tab PO DAILY 03/18/20 [Hi story] Magnesium Oxide [Magox 400] 400 mg PO DAILY 04/07/23 [History] Docusate [Colace] 100 mg PO DAILY cap 04/11/23 [Rx] Omeprazole [PriLOSEC] 20 mg PO AC-BRKFST #30 cap 04/11/23 [Rx] cefUROXime axetiL [Ceftin] 500 mg PO BID 3 Days #6 tab 04/11/23 [Rx] metroNIDAZOLE [Flagyl] 500 mg PO TID 3 Days #9 tab 04/11/23 [Rx] polyethylene glycoL 3350 [Miralax] 17 gm PO DAILY packet 04/11/23 [Rx] Dextrose Chew [Glucose Chew Tab] 4 gm PO Q10M PRN #10 tab 04/12/23 [Rx] Follow up Appointment(s)/Referral(s): Checo Vasquez MD [REFERRING] - 1 Week (Underwriting Account Representative ) Bernadette Gonzales [Primary Care Provider] - 1-2 days Deshawn Spring MD [STAFF PHYSICIAN] - 1 Week Ambulatory/Diagnostic Orders: Basic Metabolic Panel [LAB.AMB] Time Frame: 3 Days, Location: None Selected Patient Instructions/Handouts: *Surgery [facility] - Laparoscopic Cholecystectomy Discharge Instructions, Non-diabetic Hypoglycemia (DC), Abdominal Pain (ED), Laparoscopic Cholecystectomy (DC) Activity/Diet/Wound Care/Special Instructions: Follow up with endocrinology on discharge regarding low blood sugar and elevated C-Peptide. Continue to monitor blood glucose at home and keep log for follow up Can use glucose tablets if you feel like you have low sugar or you have a reading of less than 70 on your glucometer. Discharge Disposition: HOME SELF-CARE
== END 2023-04-12 19:00 | disposition home or self-care (01) | DRG 417 ==
LOC: EC 02:12 → 6NMEDSUR 07:01
PROVIDERS: ADMIT Hospitalist; ATTEND Hospitalist
PROC: 0FT44ZZ Resection of Gallbladder, Percutaneous Endoscopic Approach (ICD-10-PCS; principal; 2023-04-08 16:10)
DX: K80.12 Calculus of gallbladder with acute and chronic cholecystitis without obstruction (principal); K85.10 Biliary acute pancreatitis without necrosis or infection; I10 Essential (primary) hypertension; E78.5 Hyperlipidemia, unspecified; K59.00 Constipation, unspecified; E16.2 Hypoglycemia, unspecified; I25.10 Atherosclerotic heart disease of native coronary artery without angina pectoris; Z86.73 Personal history of transient ischemic attack (TIA), and cerebral infarction without residual deficits; Z87.891 Personal history of nicotine dependence; Z79.82 Long term (current) use of aspirin; Z79.02 Long term (current) use of antithrombotics/antiplatelets; Z79.891 Long term (current) use of opiate analgesic; Z79.899 Other long term (current) drug therapy; Z88.0 Allergy status to penicillin
CPT/HCPCS: 36415; 71046; 74019; 74177; 76705; 80048; 80053; 81003; 82150; 83036; 83525; 83690; 83735; 83880; 84484; 84681; 85025; 85610; 85730; 88304; 93005; 94760; 96361; 96374; 99285

== ENCOUNTER 2023-05-30 21:21 | Emergency (ER) | payer MEDICARE ==
[2023-05-30 21:40] VITALS: TEMP 98
[2023-05-30] MEDS ORDERED: SODIUM CHLORIDE 0.9% 1,000 ML IV ONE (22:34)
--- NOTE | 2023-05-30 22:46 | ED ---
General Adult HPI - General Chief complaint: Neuro Symptoms/Deficit Stated complaint: Confusion Source: family Mode of arrival: ambulatory Limitations: no limitations - History of Present Illness Initial comments: 's patient is a 67-year-old woman here to have evaluation for altered mental status. The patient's states that she has not been acting like her usual self. He states that she takes longer to do her usual activities. He states that she was getting ready for bed in the bathroom last night, took earlier much longer than usual. He states that she has seemed confused at times. When I interview the patient, she is alert and oriented and answering questions appropriately. She is denying any strokelike symptoms. She is not having any weakness or numbness. Denies headache, neurologic symptoms, fever or chills, chest pain, dyspnea, cough, abdominal symptoms. They are concerned because after she had her gallbladder out (1-2 months ago) she was found to have elevated blood sugar Onset/Timin -: hour(s) Improves with: none Worsens with: none Associated Symptoms: denies other symptoms Treatments Prior to Arrival: none - Related Data Home Medications Medication Instructions Recorded Confirmed fentaNYL 100MCG/HR PATCH 100 mcg TRANSDERM Q72H 10/10/14 05/30/23 [Duragesic 100MCG/HR] HYDROcodone/APAP 10-325MG [[place] 1 tab PO TID PRN 09/26/16 05/30/23 10-325] Metoprolol Tartrate [Lopressor] 25 mg PO BID 03/18/20 05/30/23 Multivitamins, Thera [Multivitamin 1 tab PO DAILY 03/18/20 05/30/23 (formulary)] Magnesium Oxide [Magox 400] 400 mg PO DAILY 04/07/23 05/30/23 Dorzolamide-Timol 2.23%/0.68% 1 drop RIGHT EYE BID 05/30/23 05/30/23 [Cosopt] Ibuprofen [Motrin Ib] 200 mg PO Q8H PRN 05/30/23 05/30/23 Lipitor (Unknown Strength) 1 dose PO DAILY 05/30/23 05/30/23 NIFEdipine XL [Procardia XL] 60 mg PO DAILY 05/30/23 05/30/23 Vitamin B-12 100 Mcg 100 mcg PO DAILY 05/30/23 05/30/23 Allergies Allergy/AdvReac Type Severity Reaction Status Date / Time Penicillins Allergy Rash/Hives Verified 05/30/23 23:28 Review of Systems ROS Statement: Those systems with pertinent positive or pertinent negative responses have been documented in the HPI. ROS Other: All systems not noted in ROS Statement are negative. Constitutional: Denies: fever, chills, weakness Eyes: Denies: vision change Respiratory: Denies: cough, dyspnea Cardiovascular: Denies: chest pain, palpitations Gastrointestinal: Denies: abdominal pain, vomiting, diarrhea Genitourinary: Denies: dysuria, hematuria Musculoskeletal: Denies: back pain Skin: Denies: rash Neurological: Reports: confusion. Denies: headache, weakness, numbness, par esthesias Past Medical History Past Medical History: CVA/TIA, Hyperlipidemia, Hypertension, Osteoarthritis (OA) Additional Past Medical History / Comment(s): PATIENT STATES SHE WAS TOLD SHE HAD A "STROKE" THAT IS WHY SHE TAKES PLAVIX, "SLIGHT HEART MURMER", History of Any Multi-Drug Resistant Organisms: None Reported Past Surgical History: Bladder Surgery, Cholecystectomy, Hysterectomy, Orthopedic Surgery Additional Past Surgical History / Comment(s): dona KNEE ARTHROSCOPY, dona carpal tunnel. bladder suspension, rt cataract Past Anesthesia/Blood Transfusion Reactions: No Reported Reaction Past Psychological History: No Psychological Hx Reported Smoking Status: Former smoker Past Alcohol Use History: None Reported Past Drug Use History: None Reported - Past Family History Mother Family Medical History: Cancer Father Family Medical History: Cancer Sister(s) Family Medical History: Cancer Additional Family Medical History / Comment(s): rectal General Exam Limitations: no limitations General appearance: alert, in no apparent distress Head exam: Present: atraumatic, normocephalic Eye exam: Present: normal appearance. Absent: scleral icterus, conjunctival injection ENT exam: Present: normal oropharynx Neck exam: Present: normal inspection, full ROM. Absent: meningismus Respiratory exam: Present: normal lung sounds bilaterally. Absent: respiratory distress, wheezes, rales, rhonchi, stridor, accessory muscle use Cardiovascular Exam: Present: regular rate, normal rhythm, systolic murmur. Absent: diastolic murmur, rubs, gallop GI/Abdominal exam: Present: soft. Absent: distended, tenderness, guarding, rebound, rigid, mass Extremities exam: Present: normal inspection, normal capillary refill. Absent: pedal edema, calf tenderness Back exam: Present: normal inspection. Absent: CVA tenderness (R), CVA tenderness (L) Neurological exam: Present: alert, oriented X3, CN II-XII intact. Absent: motor sensory deficit Skin exam: Present: warm, dry, intact, normal color. Absent: rash Course Vital Signs 05/30/23 05/30/23 05/31/23 21:24 22:01 00:30 Temperature 98 F Pulse Rate 67 62 Respiratory 20 18 16 Rate Blood Pressure 169/83 138/62 O2 Sat by Pulse 98 95 Oximetry 05/31/23 02:56 Temperature Pulse Rate 66 Respiratory 16 Rate Blood Pressure 117/67 O2 Sat by Pulse 95 Oximetry EKG Findings - EKG Results: EKG: interpreted by ERMD, sinus rhythm, normal axis EKG shows: bradycardia (Rate 57 bpm) - Blocks, [place], Hypertrophy, ST Abn: AV and intraventricular conduction: intraventricular conduction delay Repolarization changes or abnormalities: nonspecific abnormality, ST segment, and/or T wave Medical Decision Making - Medical Decision Making The patient had chest x-ray that I interpreted as negative for acute infiltrate, pneumothorax, congestive heart failure The patient had CT of the brain which I interpreted as negative for acute bony injury or intracranial hemorrhage Was pt. sent in by a medical professional or institution ([facility], [facility], urgent care, hospital, or fpc...) When possible be specific @ -[No] Did you speak to anyone other than the patient for history (EMS, parent, family, police, friend...)? What history was obtained from this source @ -Patient's family did provide history Did you review nursing and triage notes (agree or disagree)? Why? @ -[I reviewed and agree with nursing and triage notes] Were old charts reviewed (outside hosp., previous admission, EMS record, old EKG, old radiological studies, urgent care reports/EKG's, fpc records)? Report findings @ -[No old charts were reviewed] Differential Diagnosis (chest pain, altered mental status, abdominal pain women, abdominal pain men, vaginal bleeding, weakness, fever, dyspnea, syncope, headache, dizziness, GI bleed, back pain, seizure, CVA, palpatations, mental health, musculoskeletal)? @ -[Differential Altered Mental Status: Hypoglycemia, DKA, hypercapnia, ETOH, overdose, CO poisoning, trauma, myxedema coma, HTN encephalopathy, infection, encephalitis, psychosis, intercranial hemorrhage, hepatic encephalopathy, meningitis, CVA, this is not meant to be an all-inclusive list EKG interpreted by me (3pts min.). @ -[I interpreted as above X-rays interpreted by me (1pt min.). @ -[I interpreted as above CT interpreted by me (1pt min.). @ -[I interpreted as above U/S interpreted by me (1pt. min.). @ -[None done] What testing was considered but not performed or refused? (CT, X-rays, U/S, labs)? Why? @ -[None] What meds were considered but not given or refused? Why? @ -[None] Did you discuss the management of the patient with other professionals (professionals i.e. , PA, [facility], lab, RT, psych nurse, clinical social worker, compliance spec, teacher, biosecurity officer, residential case manager)? Give summary @ -[No] Was smoking cessation discussed for >3mins.? @ -[No] Was critical care preformed (if so, how long)? @ -[No] Were there social determinants of health that impacted care today? How? (Homelessness, low income, unemployed, alcoholism, drug addiction, transportation, low edu. Level, literacy, decrease access to med. care, prison, rehab)? @ -[No] Was there de-escalation of care discussed even if they declined (Discuss DNR or withdrawal of care, Hospice)? DNR status @ -[No] What co-morbidities impacted this encounter? (DM, HTN, Smoking, COPD, CAD, Cancer, CVA, ARF, Chemo, Hep., AIDS, mental health diagnosis, sleep apnea, morbid obesity)? @ -[None] Was patient admitted / discharged? Hospital course, mention meds given and route, prescriptions, significant lab abnormalities, going to OR and other p ertinent info. @ -[Patient is a 67-year-old woman brought to have evaluation for suspected altered mental status. Per family the patient does seem improved here. The exam and workup unremarkable. They will follow with neurology for further evaluation patient stable for outpatient at this time Undiagnosed new problem with uncertain prognosis? @ -[No] Drug Therapy requiring intensive monitoring for toxicity (Heparin, Nitro, Insulin, Cardizem)? @ -[No] Were any procedures done? @ -[No] Diagnosis/symptom? @ -[Altered mental status, resolved Acute, or Chronic, or Acute on Chronic? @ -[Acute Uncomplicated (without systemic symptoms) or Complicated (systemic symptoms)? @ -[Uncomplicated Side effects of treatment? @ -[No] Exacerbation, Progression, or Severe Exacerbation? @ -[No] Poses a threat to life or bodily function? How? (Chest pain, [place], [place], pneumonia, PE, COPD, DKA, ARF, appy, cholecystitis, CVA, Diverticulitis, Homicidal, Suicidal, threat to staff... and all critical care pts) @ -[No] - Lab Data Result diagrams: 05/30/23 00:21 05/30/23 00:21 Lab Results 05/30/23 05/30/23 05/30/23 Range/Units 00:21 00:21 00:21 WBC 8.9 (3.8-10.6) k/uL RBC 4.04 (3.80-5.40) m/uL Hgb 12.4 (11.4-16.0) gm/dL Hct 38.0 (34.0-46.0) % MCV 94.0 (80.0-100.0) fL MCH 30.7 (25.0-35.0) pg MCHC 32.7 (31.0-37.0) g/dL RDW 13.2 (11.5-15.5) % Plt Count 243 (150-450) k/uL MPV 8.7 Neutrophils % 59 % Lymphocytes % 30 % Monocytes % 6 % Eosinophils % 1 % Basophils % 0 % Neutrophils # 5.3 (1.3-7.7) k/uL Lymphocytes # 2.7 (1.0-4.8) k/uL Monocytes # 0.6 (0-1.0) k/uL Eosinophils # 0.1 (0-0.7) k/uL Basophils # 0.0 (0-0.2) k/uL PT (10.0-12.5) sec INR (<1.2) APTT (22.0-30.0) sec Sodium 139 (137-145) mmol/L Potassium 3.5 (3.5-5.1) mmol/L Chloride 107 (98-107) mmol/L Carbon Dioxide 24 (22-30) mmol/L Anion Gap 8 mmol/L BUN 13 (7-17) mg/dL Creatinine 0.62 (0.52-1.04) mg/dL Est GFR (CKD-EPI)AfAm >90 (>60 ml/min/1.73 sqM) Est GFR (CKD-EPI)NonAf >90 (>60 ml/min/1.73 sqM) Glucose 99 (74-99) mg/dL POC Glucose (mg/dL) (70-110) mg/dL POC Glu Distributor Sales Consultant ID Calcium 9.5 (8.4-10.2) mg/dL Total Bilirubin 0.5 (0.2-1.3) mg/dL AST 41 H (14-36) U/L ALT 29 (4-34) U/L Alkaline Phosphatase 87 (38-126) U/L Troponin I <0.012 (0.000-0.034) ng/mL Total Protein 7.2 (6.3-8.2) g/dL Albumin 4.2 (3.5-5.0) g/dL TSH (0.465-4.680) mIU/L Urine Color Urine Appearance (Clear) Urine pH (5.0-8.0) Ur Specific [place] (1.001-1.035) Urine Protein (Negative) Urine Glucose (UA) (Negative) Urine Ketones (Negative) Urine Blood (Negative) Urine Nitrite (Negative) Urine Bilirubin (Negative) Urine Urobilinogen (<2.0) mg/dL Ur Leukocyte Esterase (Negative) Urine RBC (0-5) /hpf Urine WBC (0-5) /hpf Ur Squamous Epith Cells (0-4) /hpf Urine Mucus (None) /hpf Urine Opiates Screen (NotDetected) Ur Oxycodone Screen (NotDetected) Urine Methadone Screen (NotDetected) Ur Barbiturates Screen (NotDetected) U Tricyclic Antidepress (NotDetected) Ur Phencyclidine Scrn (NotDetected) Ur Amphetamines Screen (NotDetected) U Methamphetamines Scrn (NotDetected) U Benzodiazepines Scrn (NotDetected) Urine Cocaine Screen (NotDetected) U Marijuana (THC) Screen (NotDetected) Serum Alcohol <10 mg/dL 05/30/23 05/30/23 05/31/23 Range/Units 23:06 23:37 00:10 WBC (3.8-10.6) k/uL RBC (3.80-5.40) m/uL Hgb (11.4-16.0) gm/dL Hct (34.0-46.0) % MCV (80.0-100.0) fL MCH (25.0-35.0) pg MCHC (31.0-37.0) g/dL RDW (11.5-15.5) % Plt Count (150-450) k/uL MPV Neutrophils % % Lymphocytes % % Monocytes % % Eosinophils % % Basophils % % Neutrophils # (1.3-7.7) k/uL Lymphocytes # (1.0-4.8) k/uL Monocytes # (0-1.0) k/uL Eosinophils # (0-0.7) k/uL Basophils # (0-0.2) k/uL PT 10.5 (10.0-12.5) sec INR 0.9 (<1.2) APTT 22.7 (22.0-30.0) sec Sodium (137-145) mmol/L Potassium (3.5-5.1) mmol/L Chloride (98-107) mmol/L Carbon Dioxide (22-30) mmol/L Anion Gap mmol/L BUN (7-17) mg/dL Creatinine (0.52-1.04) mg/dL Est GFR (CKD-EPI)AfAm (>60 ml/min/1.73 sqM) Est GFR (CKD-EPI)NonAf (>60 ml/min/1.73 sqM) Glucose (74-99) mg/dL POC Glucose (mg/dL) 82 (70-110) mg/dL POC Glu Distributor Sales Consultant ID October, Bryanna Calcium (8.4-10.2) mg/dL Total Bilirubin (0.2-1.3) mg/dL AST (14-36) U/L ALT (4-34) U/L Alkaline Phosphatase (38-126) U/L Troponin I (0.000-0.034) ng/mL Total Protein (6.3-8.2) g/dL Albumin (3.5-5.0) g/dL TSH (0.465-4.680) mIU/L Urine Color Urine Appearance (Clear) Urine pH (5.0-8.0) Ur Specific [place] (1.001-1.035) Urine Protein (Negative) Urine Glucose (UA) (Negative) Urine Ketones (Negative) Urine Blood (Negative) Urine Nitrite (Negative) Urine Bilirubin (Negative) Urine Urobilinogen (<2.0) mg/dL Ur Leukocyte Esterase (Negative) Urine RBC (0-5) /hpf Urine WBC (0-5) /hpf Ur Squamous Epith Cells (0-4) /hpf Urine Mucus (None) /hpf Urine Opiates Screen Detected H (NotDetected) Ur Oxycodone Screen Not Detected (NotDetected) Urine Methadone Screen Not Detected (NotDetected) Ur Barbiturates Screen Not Detected (NotDetected) U Tricyclic Antidepress Not Detected (NotDetected) Ur Phencyclidine Scrn Not Detected (NotDetected) Ur Amphetamines Screen Not Detected (NotDetected) U Methamphetamines Scrn Not Detected (NotDetected) U Benzodiazepines Scrn Not Detected (NotDetected) Urine Cocaine Screen Not Detected (NotDetected) U Marijuana (THC) Screen Not Detected (NotDetected) Serum Alcohol mg/dL 05/31/23 05/31/23 Range/Units 00:10 00:21 WBC (3.8-10.6) k/uL RBC (3.80-5.40) m/uL Hgb (11.4-16.0) gm/dL Hct (34.0-46.0) % MCV (80.0-100.0) fL MCH (25.0-35.0) pg MCHC (31.0-37.0) g/dL RDW (11.5-15.5) % Plt Count (150-450) k/uL MPV Neutrophils % % Lymphocytes % % Monocytes % % Eosinophils % % Basophils % % Neutrophils # (1.3-7.7) k/uL Lymphocytes # (1.0-4.8) k/uL Monocytes # (0-1.0) k/uL Eosinophils # (0-0.7) k/uL Basophils # (0-0.2) k/uL PT (10.0-12.5) sec INR (<1.2) APTT (22.0-30.0) sec Sodium (137-145) mmol/L Potassium (3.5-5.1) mmol/L Chloride (98-107) mmol/L Carbon Dioxide (22-30) mmol/L Anion Gap mmol/L BUN (7-17) mg/dL Creatinine (0.52-1.04) mg/dL Est GFR (CKD-EPI)AfAm (>60 ml/min/1.73 sqM) Est GFR (CKD-EPI)NonAf (>60 ml/min/1.73 sqM) Glucose (74-99) mg/dL POC Glucose (mg/dL) (70-110) mg/dL POC Glu Distributor Sales Consultant ID Calcium (8.4-10.2) mg/dL Total Bilirubin (0.2-1.3) mg/dL AST (14-36) U/L ALT (4-34) U/L Alkaline Phosphatase (38-126) U/L Troponin I (0.000-0.034) ng/mL Total Protein (6.3-8.2) g/dL Albumin (3.5-5.0) g/dL TSH 0.663 (0.465-4.680) mIU/L Urine Color Yellow Urine Appearance Clear (Clear) Urine pH 7.5 (5.0-8.0) Ur Specific [place] 1.028 (1.001-1.035) Urine Protein Trace H (Negative) Urine Glucose (UA) Negative (Negative) Urine Ketones Negative (Negative) Urine Blood Negative (Negative) Urine Nitrite Negative (Negative) Urine Bilirubin Negative (Negative) Urine Urobilinogen <2.0 (<2.0) mg/dL Ur Leukocyte Esterase Small H (Negative) Urine RBC 1 (0-5) /hpf Urine WBC 1 (0-5) /hpf Ur Squamous Epith Cells 1 (0-4) /hpf Urine Mucus Rare H (None) /hpf Urine Opiates Screen (NotDetected) Ur Oxycodone Screen (NotDetected) Urine Methadone Screen (NotDetected) Ur Barbiturates Screen (NotDetected) U Tricyclic Antidepress (NotDetected) Ur Phencyclidine Scrn (NotDetected) Ur Amphetamines Screen (NotDetected) U Methamphetamines Scrn (NotDetected) U Benzodiazepines Scrn (NotDetected) Urine Cocaine Screen (NotDetected) U Marijuana (THC) Screen (NotDetected) Serum Alcohol mg/dL Disposition Clinical Impression: Altered mental status Disposition: HOME SELF-CARE Condition: Good Instructions (If sedation given, give patient instructions): Altered Mental Status (ED) Is patient prescribed a controlled substance at d/c from ED?: No Referrals: Raúl Mckay MD [STAFF PHYSICIAN] - 1-2 days Bernadette Gonzales [Primary Care Provider] - 1-2 days Iraida Roberto MD [REFERRING] - 1-2 days
[2023-05-30 23:10] LABS: Glucose,Whole Blood 82 mg/dL (70-110)
--- NOTE | 2023-05-30 23:16 | XR ---
EXAM: XR Chest, 2 Views CLINICAL HISTORY: ITS.REASON XR Reason: altered mental status TECHNIQUE: Frontal and lateral views of the chest. COMPARISON: No relevant prior studies available. FINDINGS: Lungs: Unremarkable. No consolidation. Pleural space: Unremarkable. No pneumothorax. Heart: Unremarkable. No cardiomegaly. Mediastinum: Unremarkable. Normal mediastinal contour. Bones/joints: Unremarkable. No acute fracture. Vasculature: Calcified aorta. IMPRESSION: No acute findings in the chest.
[2023-05-30 23:58] LABS: Basophils % (A) 0 %; Eosinophils # (A) 0.1 k/uL (0-0.7); Eosinophils % (A) 1 %; HGB 12.4 gm/dL (11.4-16.0); Lymphocytes # (A) 2.7 k/uL (1.0-4.8); Lymphocytes % (A) 30 %; MCH 30.7 pg (25.0-35.0); MCHC 32.7 g/dL (31.0-37.0); Mean Platelet Volume 8.7; Monocytes # (A) 0.6 k/uL (0-1.0); Monocytes % (A) 6 %; Neutrophils # (A) 5.3 k/uL (1.3-7.7); Neutrophils % (A) 59 %; Platelet Count 243 k/uL (150-450); RBC 4.04 m/uL (3.80-5.40); RDW 13.2 % (11.5-15.5); WBC 8.9 k/uL (3.8-10.6)
[2023-05-31 00:08] LABS: ALT 29 U/L (4-34); AST 41 U/L (14-36); African American GFR (CKD) >90 (>60 ml/min/1.73 sqM); Albumin 4.2 g/dL (3.5-5.0); Alcohol <10 mg/dL; Alkaline Phosphatase 87 U/L (38-126); Anion Gap 8 mmol/L; Blood Urea Nitrogen 13 mg/dL (7-17); Calcium 9.5 mg/dL (8.4-10.2); Carbon Dioxide 24 mmol/L (22-30); Chloride 107 mmol/L (98-107); Glucose 99 mg/dL (74-99); Non-African American GFR(CKD) >90 (>60 ml/min/1.73 sqM); Potassium 3.5 mmol/L (3.5-5.1); Sodium 139 mmol/L (137-145); Total Bilirubin 0.5 mg/dL (0.2-1.3); Total Protein 7.2 g/dL (6.3-8.2)
[2023-05-31 00:34] LABS: INR 0.9 (<1.2); Partial Thromboplastin Time 22.7 sec (22.0-30.0); Prothrombin Time 10.5 sec (10.0-12.5)
[2023-05-31 00:43] LABS: Appearance,Urine Clear (Clear); Bilirubin,Urine Negative (Negative); Blood,Urine Negative (Negative); Color,Urine Yellow; Glucose,Urine (UA) Negative (Negative); Ketones,Urine Negative (Negative); Leukocyte Esterase,Urine Small (Negative); Mucus,Urine Rare /hpf; Nitrite,Urine Negative (Negative); PH, Urine 7.5 (5.0-8.0); Protein,Urine Trace (Negative); RBC,Urine 1 /hpf (0-5); Specific Gravity,Urine 1.028 (1.001-1.035); Squamous Epithelial Cell,Urine 1 /hpf (0-4); Urobilinogen,Urine <2.0 mg/dL (<2.0); WBC,Urine 1 /hpf (0-5)
[2023-05-31 00:54] VITALS: RESP 16
[2023-05-31 01:23] LABS: Amphetamine Screen,Urine Not Detected (NotDetected); Barbiturate Screen,Urine Not Detected (NotDetected); Benzodiazepines Screen,Urine Not Detected (NotDetected); Cocaine Screen,Urine Not Detected (NotDetected); Methadone Screen, Urine Not Detected (NotDetected); Opiate Screen,Urine Detected (NotDetected); Oxycodone Screen, Urine Not Detected (NotDetected); Phencyclidine Screen,Urine Not Detected (NotDetected); Tricyclic Antidepressant,Urine Not Detected (NotDetected); Urn Cannabinoid Scrn Not Detected (NotDetected)
--- NOTE | 2023-05-31 01:43 | CT ---
EXAM: CT Head Without Intravenous Contrast CLINICAL HISTORY: ITS.REASON CT Reason: altered mental status TECHNIQUE: Axial computed tomography images of the head/brain without intravenous contrast. CTDI is 49.2 mGy and DLP is 1138.4 mGy-cm. This CT exam was performed using one or more of the following dose reduction techniques: automated exposure control, adjustment of the mA and/or kV according to patient size, and/or use of iterative reconstruction technique. COMPARISON: No relevant prior studies available. FINDINGS: Brain: No hemorrhage or mass effect. Ventricles: No hydrocephalus. Bones/joints: Unremarkable. Soft tissues: Unremarkable. Sinuses: No air fluid level. Mastoid air cells: Clear. IMPRESSION: No acute hemorrhage, hydrocephalus, or mass effect.
[2023-05-31 03:19] VITALS: BP 117/67; PULSE 66
== END 2023-05-31 03:01 | disposition home or self-care (01) ==
LOC: EC 21:21
DX: R41.82 Altered mental status, unspecified (principal); I10 Essential (primary) hypertension; E78.5 Hyperlipidemia, unspecified; M19.90 Unspecified osteoarthritis, unspecified site; Z79.02 Long term (current) use of antithrombotics/antiplatelets; Z79.899 Other long term (current) drug therapy; Z87.891 Personal history of nicotine dependence; Z88.0 Allergy status to penicillin; Z90.49 Acquired absence of other specified parts of digestive tract
CPT/HCPCS: 99285 ×2; 96360 ×2; 36415 ×2; 93005; 80053; 84443; 84484; 85025; 85610; 85730; 81001; 80306; 71046; 70450; G0480; 80320

== ENCOUNTER → 2024-08-14 | Outpatient (CLI) | payer MEDICARE ==
[2024-08-15 05:01] LABS: Chol/HDL Ratio 3.23 Ratio; LDL Cholesterol,Calculated 113.6 mg/dL (0.0-131.0)
== END | disposition home or self-care (01) ==
LOC: LABWHC1 15:26
PROVIDERS: ATTEND Psychiatry & Neurology Neurology
DX: G31.84 Mild cognitive impairment of uncertain or unknown etiology (principal); Z79.899 Other long term (current) drug therapy
CPT/HCPCS: 36415; 80061; 82607; 82746; 83036; 84443

== ENCOUNTER → 2024-09-16 | Outpatient (CLI) | payer MEDICARE ==
[2024-09-16 13:26] VITALS: BP 150/62; PULSE 86; RESP 18; TEMP 98.9
--- NOTE | 2024-09-16 14:10 | XR ---
EXAMINATION TYPE: XR thoraco lumbar junction DATE OF EXAM: 09/16/2024 COMPARISON: NONE CLINICAL INDICATION: Female, 69 years old with history of M54.14, M54.16; TECHNIQUE: 2 views of the thoracolumbar spine FINDINGS: Imaging from mid T8 to roughly mid L4 level is present. Alignment is satisfactory. Vertebra l body heights an disc space heights are preserved. Moderate multilevel anterior and lateral spurring is seen. Overlying arterial vascular calcification is seen. Cholecystectomy clips are noted. IMPRESSION: As above. [facility], , 09/16/2024 2:08 PM
--- NOTE | 2024-09-16 15:56 | P.PAINPG ---
Objective - Vital Signs Vital signs: Intake & Output 09/15/24 09/16/24 09/16/24 18:59 06:59 18:59 Weight 72.575 kg PQRS Measure Charge Sheet Comment: HISTORY OF PRESENT ILLNESS: A 69 yr old female as a referral from Dr Malorie Ludwig presents today w severe and chronic LBP > 10 yrs secondary to radiculopathy, spondylosis and facet arthropathy without myelopathy for evaluation. Pt states pain level is provoked at 10 /10 in intensity, constant, localized in the thoracolumbar spine, predominantly axial, sharp in character w occasional shooting pain towards the flanks and knees. Pain is provoked by bending, lifting. Pain is alleviated by PT x 6 wks which ended in 2023, physician guided home exercises 4-5 times weekly since 2023, heat, medications, topical, repositioning and rest . Oswestry axial pain score at 24. PMH: OA, CVA, Hyperlipidemia, HTN PSH: Bladder Suspension, Cholecystectomy, Hysterectomy, BL Knee Arthroscopy, BL CTR, R Cataract Extraction SH: Former tobacco use, No ETOH use, No illicit drug use FH: Mo- CA. Fa- CA. Sis- Rectal CA All: See list Meds: See list include Plavix, Fentanyl 100mcg/hr #10, [place] 10/325mg #90, BioFreeze REVIEW OF ORGAN SYSTEMS: CONSTITUTIONAL: No fevers or chills. No recent weight loss. NEUROLOGICAL: + numbness and tingling along the distal extremities. No seizure disorders or headaches. MUSCULOSKELETAL: + pain PSYCHIATRIC: Denies current depression or suicidal thoughts. Physical Examinations : Constitutional : Cooperative , not in acute distress . Neurologic : Cranial nerve II to XII intact. No focal neurological deficits. Psychiatric : alert & oriented x 3. Matching mood & appropriate affect. Judgment & insight intact. Musculoskeletal : Cervical Spine Motor strength in the deltoid and biceps: Normal right side. Normal Left side Motor strength biceps and the wrist extensors: Normal right side . Normal left side Motor strength in the triceps muscle: Normal right side. Normal left side Deep tendon reflexes: Normal at the biceps. Normal at Brachioradialis. Normal at triceps Vertebral body tenderness to deep palpation over Cervical facet loading test: positive bilaterally Spurling test: positive bilaterally Neck distraction test: positive bilaterally Tam sign: positive bilaterally Lumbar spine Motor strength lower extremities ,thigh and legs 5/5 Right side , 5/5 Left side Deep tendon reflexes : Normal Knee Jerk. Normal Ankle Jerk Vertebral body tenderness over Lazar Test positive BL T8-T9/ BL L4-L5 Lumbar facet Loading Test: positive Right / positive Left Range of motion of the lumbar spine Flexion 30 degrees, extension 10 degrees Straight Leg Raise test: Left/ Right positive at degrees Rosangela test: positive right / positive left. Severe tenderness over the Sacroiliac joint on the Right / Left sides Gaenslen test: positive bilaterally Seated flexion test: positive bilaterally. Sacral spine : Severe tenderness over the Sacroiliac joint: right side / left side Range of motion: Flexion of the lumbar spine <60 degrees Range of motion: Extension of the lumbar spine <20 degrees Gaenslen's Test positive Rosangela test: positive right side / left side Thigh Thrust Test Sacral Thrust Test Imaging: None on file Assessment/ Plan : Thoracolumbar radiculopathy Recommendation of thoracolumbar x ray M54.14/ M54.16. All questions answered. I have spent greater than 30 minutes on patient care today. Dr Bynum was available by phone for the evaluation of this patient. The time was used to review the medical records including relevant urine studies and Prescription history (MAPs), review of the available imaging, evaluation and examination of the patient, coordination of care with the medical staff and if applicable referring physicians, as well as creation of the medical record - Pain Location Back Non-Pharmacological Interventions: Inactivity PQRS Narrative: Smoking Status Never smoker Home Medications: Ambulatory Orders fentaNYL 100MCG/HR PATCH [Duragesic 100MCG/HR] 100 mcg TRANSDERM Q72H 10/10/14 HYDROcodone/APAP 10-325MG [[place] 10-325] 1 tab PO TID PRN 09/26/16 Metoprolol Tartrate [Lopressor] 25 mg PO BID 03/18/20 Multivitamins, Thera [Multivitamin (formulary)] 1 tab PO DAILY 03/18/20 Magnesium Oxide [Magox 400] 400 mg PO DAILY 04/07/23 Dorzolamide-Timol 2.23%/0.68% [Cosopt] 1 drop RIGHT EYE BID 05/30/23 Ibuprofen [Motrin Ib] 200 mg PO Q8H PRN 05/30/23 Lipitor (Unknown Strength) 1 dose PO DAILY 05/30/23 NIFEdipine XL [Procardia XL] 60 mg PO DAILY 05/30/23 Vitamin B-12 100 Mcg 100 mcg PO DAILY 05/30/23 Controlled Substance Measures - Controlled Substance Measures Is patient prescribed a controlled substance at discharge?: No
== END ==
LOC: PNWHC3 13:10
PROVIDERS: ATTEND Specialist
DX: M47.26 Other spondylosis with radiculopathy, lumbar region (principal); Z88.0 Allergy status to penicillin
CPT/HCPCS: 72080; 99211

== ENCOUNTER 2024-11-11 19:41 | Emergency (ER) | payer MEDICARE ==
--- NOTE | 2024-11-11 20:43 | XR ---
EXAMINATION TYPE: XR chest 2V DATE OF EXAM: 11/11/2024 8:32 PM CLINICAL INDICATION:Female, 69 years old with history of Chest Pain; [facility] COMPARISON: Chest radiograph 05/30/2023 TECHNIQUE: XR chest 2V Frontal view of the chest. FINDINGS: Lungs/Pleura: Bibasilar atelectasis. There is no evidence of pneumothorax. Pulmonary vascularity: Unremarkable. Heart/mediastinum: Cardiomediastinal silhouette is unremarkable. Atherosclerotic calcifications are seen in the aorta. Musculoskeletal: No acute osseous pathology. IMPRESSION: Bibasilar atelectasis. No acute cardiopulmonary disease/process. [facility], , 11/11/2024 8:40 PM
--- NOTE | 2024-11-11 20:48 | XR ---
EXAMINATION TYPE: XR shoulder complete LT DATE OF EXAM: 11/11/2024 8:32 PM CLINICAL INDICATION:Female, 69 years old with history of pain; PHH, pain COMPARISON: Chest radiograph from same day. TECHNIQUE: XR shoulder complete LT; examined in AP, internally rotated and scapular Y projections. FINDINGS: No evidence of acute osseous pathology, joint dislocation, or significant soft tissue swelling. Ther e are calcifications noted in the lateral aspect of the left humeral head. The remaining portions of the visualized chest are unremarkable. IMPRESSION: No acute osseous pathology. Nonspecific calcifications in the lateral aspect of the proximal left humeral head may represent bony outgrowth versus heterotopic ossification. Compare with prior imaging or known history otherwise if clinically warranted this can be characterized with a left shoulder MRI. [facility], , 11/11/2024 8:46 PM
[2024-11-11 21:16] LABS: Basophils # (A) 0.04 10*3/uL (0.00-0.10); Basophils % (A) 0.3 %; Eosinophils # (A) 0.17 10*3/uL (0.04-0.35); Eosinophils % (A) 1.4 %; HCT 38.0 % (37.2-46.3); HGB 12.8 g/dL (12.0-15.0); Lymphocytes # (A) 3.80 10*3/uL (0.90-5.00); Lymphocytes % (A) 32.0 %; MCH 30.7 pg (27.0-32.0); MCHC 33.7 g/dL (32.0-37.0); MCV 91.1 fL (80.0-97.0); Monocytes # (A) 1.12 10*3/uL (0.20-1.00); Monocytes % (A) 9.4 %; Neutrophils # (A) 6.71 10*3/uL (1.80-7.70); Neutrophils % (A) 56.7 %; Platelet Count 270 10*3/uL (140-440); RBC 4.17 10*6/uL (4.10-5.20); RDW 12.5 % (11.5-14.5); WBC 11.86 10*3/uL (4.50-10.00)
[2024-11-11 21:28] LABS: INR 1.0 (<1.2); Partial Thromboplastin Time 25.0 sec (22.0-30.0); Prothrombin Time 10.9 sec (10.0-12.5)
[2024-11-11 21:31] LABS: ALT 21 U/L (4-34); AST 33 U/L (14-36); African American GFR (CKD) >90 (>60 ml/min/1.73 sqM); Albumin 4.5 g/dL (3.5-5.0); Alkaline Phosphatase 103 U/L (38-126); Anion Gap 11 mmol/L; Blood Urea Nitrogen 10 mg/dL (7-17); Calcium 10.0 mg/dL (8.4-10.2); Carbon Dioxide 27 mmol/L (22-30); Chloride 100 mmol/L (98-107); Glucose 91 mg/dL (74-99); Magnesium 1.9 mg/dL (1.6-2.3); Non-African American GFR(CKD) 88 (>60 ml/min/1.73 sqM); Potassium 4.3 mmol/L (3.5-5.1); Sodium 138 mmol/L (137-145); Total Protein 7.8 g/dL (6.3-8.2)
--- NOTE | 2024-11-11 22:03 | ED ---
Extremity Problem HPI - General Chief complaint: Extremity Problem,Nontraumatic Stated complaint: L shoulder pain Time Seen by Provider: 11/11/24 20:01 Source: patient Mode of arrival: ambulatory Limitations: no limitations - History of Present Illness Initial comments: 69-year-old female presenting with chief complaint of left shoulder pain. Pain started on Saturday. She denies any injury or trauma. Does not radiate into the jaw or into the chest. She denies any chest pain or difficulty breathing. No numbness or tingling. No neck pain. No abdominal pain, nausea, vomiting. No headaches. No weakness. No fever or chills. No swelling or discoloration. Pain starts at the shoulder and travels to the level of the elbow - Related Data Home Medications Medication Instructions Recorded Confirmed fentaNYL 100MCG/HR PATCH 100 mcg TRANSDERM Q72H 10/10/14 05/30/23 [Duragesic 100MCG/HR] HYDROcodone/APAP 10-325MG [[place] 1 tab PO TID PRN 09/26/16 05/30/23 10-325] Metoprolol Tartrate [Lopressor] 25 mg PO BID 03/18/20 05/30/23 Multivitamins, Thera [Multivitamin 1 tab PO DAILY 03/18/20 05/30/23 (formulary)] Magnesium Oxide [Magox 400] 400 mg PO DAILY 04/07/23 05/30/23 Dorzolamide-Timol 2.23%/0.68% 1 drop RIGHT EYE BID 05/30/23 05/30/23 [Cosopt] Ibuprofen [Motrin Ib] 200 mg PO Q8H PRN 05/30/23 05/30/23 Lipitor (Unknown Strength) 1 dose PO DAILY 05/30/23 05/30/23 NIFEdipine XL [Procardia XL] 60 mg PO DAILY 05/30/23 05/30/23 Vitamin B-12 100 Mcg 100 mcg PO DAILY 05/30/23 05/30/23 Allergies Allergy/AdvReac Type Severity Reaction Status Date / Time Penicillins Allergy Rash/Hives Verified 11/11/24 19:59 Review of Systems ROS Statement: Those systems with pertinent positive or pertinent negative responses have been documented in the HPI. ROS Other: All systems not noted in ROS Statement are negative. Past Medical History Past Medical History: CVA/TIA, Hyperlipidemia, Hypertension, Osteoarthritis (OA) Additional Past Medical History / Comment(s): PATIENT STATES SHE WAS TOLD SHE HAD A "STROKE" THAT IS WHY SHE TAKES PLAVIX, "SLIGHT HEART MURMER", History of Any Multi-Drug Resistant Organisms: None Reported Past Surgical History: Bladder Surgery, Cholecystectomy, Hysterectomy, Orthopedic Surgery Additional Past Surgical History / Comment(s): dona KNEE ARTHROSCOPY, dona carpal tunnel. bladder suspension, rt cataract Past Anesthesia/Blood Transfusion Reactions: No Reported Reaction Past Psychological History: No Psychological Hx Reported Smoking Status: Former smoker Past Alcohol Use History: None Reported Past Drug Use History: None Reported - Past Family History Mother Family Medical History: Cancer Father Family Medical History: Cancer Sister(s) Family Medical History: Cancer Additional Family Medical History / Comment(s): rectal General Exam Limitations: no limitations General appearance: alert, in no apparent distress Head exam: Present: atraumatic, normocephalic, normal inspection Eye exam: Present: normal appearance, EOMI Neck exam: Present: normal inspection. Absent: meningismus Respiratory exam: Present: normal lung sounds bilaterally. Absent: respiratory distress, wheezes, rales, rhonchi, stridor Cardiovascular Exam: Present: regular rate, normal rhythm, normal heart sounds. Absent: systolic murmur, diastolic murmur, rubs, gallop, clicks Left Shoulder Exam: Present: normal inspection, tenderness. Absent: full ROM (Somewhat limited secondary to pain), swelling, ecchymosis, deformity, erythema Neurological exam: Present: alert, oriented X3 Psychiatric exam: Present: normal affect, normal mood Skin exam: Present: warm, dry, normal color Course Vital Signs 11/11/24 11/11/24 19:57 22:22 Temperature 98.1 F 98.3 F Pulse Rate 67 68 Respiratory 22 20 Rate Blood Pressure 139/71 162/72 O2 Sat by Pulse 99 99 Oximetry Medical Decision Making - Medical Decision Making Was pt. sent in by a medical professional or institution (, PA, SENIOR ANDROID DEVELOPER, urgent care, hospital, or assisted...) When possible be specific @ -No Did you speak to anyone other than the patient for history (EMS, parent, family, police, friend...)? What history was obtained from this source @ -No Did you review nursing and triage notes (agree or disagree)? Why? @ -I reviewed and agree with nursing and triage notes Were old charts reviewed (outside hosp., previous admission, EMS record, old EKG, old radiological studies, urgent care reports/EKG's, assisted records)? Report findings @ -No old charts were reviewed Differential Diagnosis (chest pain, altered mental status, abdominal pain women, abdominal pain men, vaginal bleeding, weakness, fever, dyspnea, syncope, headache, dizziness, GI bleed, back pain, seizure, CVA, palpatations, mental health, musculoskeletal)? @ -Differential Musculoskeletal Muscular strain, contusion, ligament sprain, fracture, arthritis, septic arthritis, bursitis, cellulitis, muscle spasm, nerve compression, DVT, arterial occlusion, herpes zoster, electrolyte abnormality, tumor.... This is not meant to be in all inclusive list EKG interpreted by me (3pts min.). @ -EKG shows sinus bradycardia ventricular rate 59. DC interval 157 QRS 91 QT 407 QTc 407 X-rays interpreted by me (1pt min.). @ -Chest x-ray shows bibasilar atelectasis. No acute cardiopulmonary disease/process Shoulder x-ray shows no acute osseous pathology. Nonspecific calcifications in the lateral aspect of the proximal left humeral head may represent bony outgrowth versus heterotopic ossification. CT interpreted by me (1pt min.). @ -None done U/S interpreted by me (1pt. min.). @ -None done What testing was considered but not performed or refused? (CT, X-rays, U/S, labs)? Why? @ -None What meds were considered but not given or refused? Why? @ -None Did you discuss the management of the patient with other professionals (professionals i.e. , PA, SENIOR ANDROID DEVELOPER, lab, RT, psych nurse, social media coordinator, cutting and splicing supervisor, teacher, fisheries technical officer, casework supervisor)? Give summary @ -No Was smoking cessation discussed for >3mins.? @ -No Was critical care preformed (if so, how long)? @ -No Were there social determinants of health that impacted care today? How? (Homelessness, low income, unemployed, alcoholism, drug addiction, transportation, low edu. Level, literacy, decrease access to med. care, half-way, rehab)? @ -No Was there de-escalation of care discussed even if they declined (Discuss DNR or withdrawal of care, Hospice)? DNR status @ -No What co-morbidities impacted this encounter? (DM, HTN, Smoking, COPD, CAD, Cancer, CVA, ARF, Chemo, Hep., AIDS, mental health diagnosis, sleep apnea, morbid obesity)? @ -None Was patient admitted / discharged? Hospital course, mention meds given and route, prescriptions, significant lab abnormalities, going to OR and other pertinent info. @ -69-year-old female presented with chief complaint of left shoulder pain ongoing since Saturday. No chest pain or difficulty breathing. Pain is worse with range of motion. Lab work requires no action. Chest x-ray shows no acute process and x-ray of the shoulder shows no fracture or dislocation. There is some ossification seen. Patient is educated on today's findings and supportive management at home. She is provided with a sling and instructed to follow-up with orthopedics. Follow-up with PCP. Report back to ER with any new or worsening symptoms. Discussed return parameters and answered all questions. Patient conveyed verbal understanding and agreed to the plan. I discussed this case in detail with my attending Dr. Hernandez Undiagnosed new problem with uncertain prognosis? @ -No Drug Therapy requiring intensive monitoring for toxicity (Heparin, Nitro, Insulin, Cardizem)? @ -No Were any procedures done? @ -No Diagnosis/symptom? @ -Shoulder pain Acute, or Chronic, or Acute on Chronic? @ -Acute Uncomplicated (without systemic symptoms) or Complicated (systemic symptoms)? @ -Uncomplicated Side effects of treatment? @ -No Exacerbation, Progression, or Severe Exacerbation? @ -No Poses a threat to life or bodily function? How? (Chest pain, [place], [place], pneumonia, PE, COPD, DKA, ARF, appy, cholecystitis, CVA, Diverticulitis, Homicidal, Suicidal, threat to staff... and all critical care pts) @ -Unlikely - Lab Data Result diagrams: 11/11/24 21:08 11/11/24 21:08 Lab Results 11/11/24 11/11/24 11/11/24 Range/Units 21:08 21:08 21: WBC 11.86 H (4.50-10.00) 10*3/uL RBC 4.17 (4.10-5.20) 10*6/uL Hgb 12.8 (12.0-15.0) g/dL Hct 38.0 (37.2-46.3) % MCV 91.1 (80.0-97.0) fL MCH 30.7 (27.0-32.0) pg MCHC 33.7 (32.0-37.0) g/dL Plt Count 270 (140-440) 10*3/uL MPV 10.9 (9.5-12.2) fL Immature Gran % (Auto) 0.2 % Neutrophils % 56.7 % Lymphocytes % 32.0 % Monocytes % 9.4 % Eosinophils % 1.4 % Basophils % 0.3 % Immature Gran # 0.02 (0.00-0.04) 10*3/uL Neutrophils # 6.71 (1.80-7.70) 10*3/uL Lymphocytes # 3.80 (0.90-5.00) 10*3/uL Monocytes # 1.12 H (0.20-1.00) 10*3/uL Eosinophils # 0.17 (0.04-0.35) 10*3/uL Basophils # 0.04 (0.00-0.10) 10*3/uL PT 10.9 (10.0-12.5) sec INR 1.0 (<1.2) APTT 25.0 (22.0-30.0) sec Sodium 138 (137-145) mmol/L Potassium 4.3 (3.5-5.1) mmol/L Chloride 100 (98-107) mmol/L Carbon Dioxide 27 (22-30) mmol/L Anion Gap 11 mmol/L BUN 10 (7-17) mg/dL Creatinine 0.72 (0.52-1.04) mg/dL Est GFR (CKD-EPI)AfAm >90 (>60 ml/min/1.73 sqM) Est GFR (CKD-EPI)NonAf 88 (>60 ml/min/1.73 sqM) Glucose 91 (74-99) mg/dL Calcium 10.0 (8.4-10.2) mg/dL Magnesium 1.9 (1.6-2.3) mg/dL Total Bilirubin 0.5 (0.2-1.3) mg/dL AST 33 (14-36) U/L ALT 21 (4-34) U/L Alkaline Phosphatase 103 (38-126) U/L Troponin I (0.000-0.034) ng/mL Total Protein 7.8 (6.3-8.2) g/dL Albumin 4.5 (3.5-5.0) g/dL 11/11/24 Range/Units 21:08 WBC (4.50-10.00) 10*3/uL RBC (4.10-5.20) 10*6/uL Hgb (12.0-15.0) g/dL Hct (37.2-46.3) % MCV (80.0-97.0) fL MCH (27.0-32.0) pg MCHC (32.0-37.0) g/dL Plt Count (140-440) 10*3/uL MPV (9.5-12.2) fL Immature Gran % (Auto) % Neutrophils % % Lymphocytes % % Monocytes % % Eosinophils % % Basophils % % Immature Gran # (0.00-0.04) 10*3/uL Neutrophils # (1.80-7.70) 10*3/uL Lymphocytes # (0.90-5.00) 10*3/uL Monocytes # (0.20-1.00) 10*3/uL Eosinophils # (0.04-0.35) 10*3/uL Basophils # (0.00-0.10) 10*3/uL PT (10.0-12.5) sec INR (<1.2) APTT (22.0-30.0) sec Sodium (137-145) mmol/L Potassium (3.5-5.1) mmol/L Chloride (98-107) mmol/L Carbon Dioxide (22-30) mmol/L Anion Gap mmol/L BUN (7-17) mg/dL Creatinine (0.52-1.04) mg/dL Est GFR (CKD-EPI)AfAm (>60 ml/min/1.73 sqM) Est GFR (CKD-EPI)NonAf (>60 ml/min/1.73 sqM) Glucose (74-99) mg/dL Calcium (8.4-10.2) mg/dL Magnesium (1.6-2.3) mg/dL Total Bilirubin (0.2-1.3) mg/dL AST (14-36) U/L ALT (4-34) U/L Alkaline Phosphatase (38-126) U/L Troponin I <0.012 (0.000-0.034) ng/mL Total Protein (6.3-8.2) g/dL Albumin (3.5-5.0) g/dL Disposition Clinical Impression: Shoulder pain Disposition: HOME SELF-CARE Condition: Good Instructions (If sedation given, give patient instructions): Shoulder Pain (ED) Additional Instructions: Follow-up with orthopedics. Report back to ER with any new or worsening symp toms. Take Tylenol as needed for pain control. Use your sling and rest the arm. Is patient prescribed a controlled substance at d/c from ED?: No Referrals: Diaz Henson MD [Primary Care Provider] - 1-2 days Amish Desai MD [STAFF PHYSICIAN] - 1-2 days Time of Disposition: 22:03
[2024-11-11] MEDS: Acetaminophen-Codeine 300-30mg TAB PO STA (22:13)
[2024-11-11] MEDS: ACET/COD 300 MG/30 MG STARTER PACK 6 TAB BTL PO STA (22:13)
[2024-11-11 22:24] VITALS: BP 162/72; PULSE 68; RESP 20; TEMP 98.3
== END 2024-11-11 22:24 | disposition home or self-care (01) ==
LOC: EC 19:41
DX: M25.512 Pain in left shoulder (principal); Z87.891 Personal history of nicotine dependence; Z88.0 Allergy status to penicillin
CPT/HCPCS: 36415; 71046; 80053; 83735; 84484; 85025; 85610; 85730; 93005; 99284